=== PATIENT | male | born 1965 | race Caucasian/White ===

== ENCOUNTER → 2017-08-11 09:23 | Outpatient (CLI) | payer MEDICARE, SELFPAY | PROVIDERS: PCP Internal Medicine; Visit Provider Internal Medicine | DX: I87.2 Venous insufficiency (chronic) (peripheral) (principal); L97.822 Non-pressure chronic ulcer of other part of left lower leg with fat layer exposed; L97.812 Non-pressure chronic ulcer of other part of right lower leg with fat layer exposed; L03.115 Cellulitis of right lower limb; L03.116 Cellulitis of left lower limb; L95.0 Livedoid vasculitis | CPT/HCPCS: 29581; 87070; 87077; 87186; 87205 ==

== ENCOUNTER → 2017-08-11 14:16 | Outpatient (REF) | payer MEDICARE, SELFPAY | LOC: LAB 14:16 | PROVIDERS: PCP Internal Medicine; Visit Provider Internal Medicine | DX: L08.9 Local infection of the skin and subcutaneous tissue, unspecified (principal) | CPT/HCPCS: 87070; 87077; 87186; 87205 ==

== ENCOUNTER → 2017-08-16 16:05 | Outpatient (CLI) | payer MEDICARE, SELFPAY | PROVIDERS: PCP Internal Medicine; Visit Provider Internal Medicine | DX: L97.811 Non-pressure chronic ulcer of other part of right lower leg limited to breakdown of skin (principal); L97.821 Non-pressure chronic ulcer of other part of left lower leg limited to breakdown of skin; L03.115 Cellulitis of right lower limb; L03.116 Cellulitis of left lower limb; L95.0 Livedoid vasculitis | CPT/HCPCS: 99214 ==

== ENCOUNTER → 2017-08-22 14:45 | Outpatient (REF) | payer MEDICARE, SELFPAY | LOC: LAB 14:45 | PROVIDERS: PCP Internal Medicine; Visit Provider Internal Medicine | DX: L08.89 Other specified local infections of the skin and subcutaneous tissue (principal) | CPT/HCPCS: 87070; 87075; 87077; 87147; 87186; 87205 ==

== ENCOUNTER → 2017-08-22 15:45 | Outpatient (CLI) | payer MEDICARE, SELFPAY | PROVIDERS: PCP Internal Medicine; Visit Provider Internal Medicine | DX: I87.2 Venous insufficiency (chronic) (peripheral) (principal); L97.822 Non-pressure chronic ulcer of other part of left lower leg with fat layer exposed; L97.812 Non-pressure chronic ulcer of other part of right lower leg with fat layer exposed; L97.512 Non-pressure chronic ulcer of other part of right foot with fat layer exposed; L03.115 Cellulitis of right lower limb; L03.116 Cellulitis of left lower limb; L95.0 Livedoid vasculitis | CPT/HCPCS: 11042; 11045 ==

== ENCOUNTER → 2017-08-25 11:18 | Outpatient (CLI) | payer MEDICARE, SELFPAY ==
--- NOTE | 2017-08-25 11:21 | DI.RAD.S_ITS ---
PROCEDURE: XR FINGER LT MIN 2V INDICATIONS: 52 year-old male with left fifth finger pain after fall. TECHNIQUE: AP hand, 2 views of the left fifth finger(s) acquired. COMPARISON: None. FINDINGS: Bones: There is dorsal dislocation at the fifth proximal interphalangeal joint. Small fracture fragment lies volar to the proximal phalangeal head on the lateral projection. Other bones appear intact. No suspicious bony lesions. Soft tissues: No suspicious soft tissue calcifications. IMPRESSION: Dorsal dislocation of the fifth proximal interphalangeal joint, with small volar plate avulsion fracture fragment adjacent to the proximal phalangeal head. Dictated by: Lefty Shah M.D. on 08/25/2017 at 12:05 Approved by: Lefty Shah M.D. on 08/25/2017 at 12:07
== END ==
PROVIDERS: PCP Internal Medicine; Visit Provider Physician Assistant
DX: M79.645 Pain in left finger(s) (principal); S62.617A Displaced fracture of proximal phalanx of left little finger, initial encounter for closed fracture
CPT/HCPCS: 73140

== ENCOUNTER → 2017-08-29 13:08 | Outpatient (CLI) | payer MEDICARE, SELFPAY ==
--- NOTE | 2017-08-29 | OV.WND_ITS ---
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 Allergies adhesive tape (Reaction: blisters), Neosporin ([id number]) (Reaction: inflamed), neomycin (Reaction: inflammation), polymyxin B (Reaction: inflammation) HPI This information was obtained from the patient 08/29/17. Seen by Dr. Mora. The patient reports continued pain associated with the bilateral lower leg cellulitis and associated vasculitic nonpressure ulcers and continues on Bactrim without reporting adverse side effects. He's also tolerating negative pressure wound therapy which has been effective in reversing the acute flares associated with his livedoid vasculopathy over the past few years. 08/22/17. Seen by Dr. Mora. 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 He's tolerating the compression wraps however without difficulty. 08/16/17. Seen by Dr. Mora. The patient reports improvement in terms of pain associated with the bilateral lower leg cellulitis and associated vasculitic nonpressure ulcers that are caused by underlying severe livedoid vasculopathy. His wound culture from the last visit grew two MSSA resistant species. He also tolerated compression therapy with the Coban compression wraps without difficulty. 08/11/17. Seen by Dr. Mora. The patient reports increased pain and drainage associated with the chronic bilateral lower leg vasculitic ulcers over the past few days and he has a low grade fever of 99F today. He's been off of Bactrim for 10 days and has had compression wraps on the legs for about 9 days prior to cutting them off yesterday. 08/02/17. Seen by Dr. Mora. The patient continues on Bactrim for cellulitis associated with the bilateral lower leg vasculitic ulcers and feels the pain is improving. He's also tolerated compression therapy without difficulty. 07/28/17. Seen by Dr. Mora. The patient returns to our clinic with an acute flare of his bilateral lower leg livedoid vasculopathy that he's state is very painful and has been draining considerably. He was seen in the walk-in clinic last Tuesday and started on Bactrim. He feels the pain in improving however it's still quite severe. He does not report fevers or feeling unwell otherwise and has been applying an OTC compression wrap to the legs. He also states [facility] 02/16/17. Seen by Dr. Mora. The patient does not report significant pain or increased drainage associated with bilateral lower leg nonpressure ulcers and he has completing his course of Bactrim that was treating the recent Klebsiella positive wound culture. 02/08/17. Seen by Reginaldo Gallagher PA-C. The patient reports decreased pain and drainage from his lower leg ulcers after taking bactrim for several days. 02/03/17. Seen by Dr. Mora. The patient reports increased pain associated with bilateral lower leg nonpressure ulcers despite taking Augmentin for the past week which is treating the recent Klebsiella positive wound culture. He also feels the compression wraps are contributing to the discomfort. 01/27/17. Seen by Dr. Mora. The patient reports improvement in his pain associated with the bilateral lower leg nonpressure ulcers since starting on Augmentin after his visit last week. He is amenable to compression therapy today that has been effective at treating his severe livedoid vasculopathy which is the source of his ulcers. 01/21/17. Seen by Dr. Mora. The patient continues on Augmentin for the bilateral lower leg nonpressure ulcers infections. He feels that the pain has improved modestly and does not report adverse side effects from antibiotics. He also does not wish to have compression wraps placed today which have been very effective in the past at treating the ulcers associated with livedoid vasculopathy. 01/14/17. Seen by Reginaldo Gallagher PA-C. The patient reports decreased pain and drainage from his right lateral lower leg and foot ulcers since starting his cipro. He reports that he should have several more doses but has lost his bottle. 01/11/17. Seen by Reginaldo Gallagher PA-C. The patient reports increased pain and drainage from his right lateral ulcer. He denies fever, chills or malaise. 01/07/17. Seen by Dr. Mora. The patient returns to clinic with recurrence of his bilateral lower extremity vasculitic ulcers. He carries a diagnosis of livedoid vasculopathy and was seen by recently with no changes to his management plan. He reports moderate pain with minimal drainage associated with the ulcers and has been applying compression wraps at home which is been the standard treatment. He does not report fevers or feeling unwell in general. 12/22/16. Seen by Reginaldo Gallagher PA-C. The patient reports he has restarted his 3 drug regimen for his livedoid vasculopathy after seeing Dr. Carmichael 2 days ago. He also reports increased pain and drainage from his right lower leg ulcer. 12/01/16. Seen by Reginaldo Gallagher PA-C. The patient reports no increase in drainage or pain from his chronic lower extremity ulcers. He again does not want multi-layer compression applied today due to forecast high temperatures. 11/25/16. Seen by Reginaldo Gallagher PA-C. The patient reports improvement in his pain and drainage from his lower extremity ulcers. He does not want to be wrapped this week due to discomfort with the wraps. 11/17/16. Seen by Reginaldo Gallagher PA-C. The patient reports that he now is taking danazol and aspirin to treat his livedoid vasculopathy, but is currently unable to get his prescribed trental, which is the 3rd drug in his 3 drug regimen that has been effective so far in treating his condition. 11/10/16. Seen by Reginaldo Gallagher PA-C. The patient reports persistent erythema and drainage from his left lower extremity ulcers which are known to be infected at this time. He has been able to procure his Bactrim DS and began taking it yesterday. In addition he has decided to resume taking danazol to treat his livedoid vasculopathy. 11/03/16. Seen by Reginaldo Gallagher PA-C. The patient reports he has been unable to afford his Bactrim DS prescription and has not yet picked it up. He grew S. Maltophilia and an coagulase negative staph. 10/27/16. Seen by Reginaldo Gallagher PA-C. The patient reports decreased drainage from his lower extremity ulcers and general improvement in all of the ulcers with the exception of an odor from the left ankle ulcers. 10/20/16. Seen by Reginaldo Gallagher PA-C. The patient reports missing a day of oral antibiotics but intends to continue the course. He has not procured his danazol as he is concerned about androgen-related side effects. 10/13/16. Seen by Reginaldo Gallagher PA-C. The patient reports that he now has medicare insurance coverage, though he has not yet attempted to use it to fill his prescription for danazol which treats his livedoid vasculopathy. He reports continued pain and drainage from his left foot ulcer and has been applying topical gentamicin but only procured the augmentin to treat it 1 day ago stating that I wasn't really going to be all that effective right? 10/06/16. Seen by Reginaldo Gallagher PA-C. The patient's recent wound culture has resulted with ESBL + E. Coli which is resistant to most oral antibiotics. Notably it is intermediately sensitive to Augmentin and it is sensitive to gentamicin. He reports improvement in the right foot and leg ulcers and continued pain and drainage from the left leg ulcers. 09/29/16. Seen by Reginaldo Gallagher PA-C. The patient reports significantly increased pain and drainage from his left medial ankle ulcer and decreased pain and drainage from his other ulcers. 09/16/16. Seen by Reginaldo Gallagher PA-C. The patient reports continued pain from her lower leg ulcers but the pain and drainage has decreased in recent days. He tolerates compression therapy and believes it is working though complains it is difficult to put up with during the hot weather we've had recently. 09/09/16. Seen by Dr. Mora. The patient report persistent but improving pain associated with the bilateral lower leg vasculitic non-pressure ulcers since his last visit. He' s tolerating compression therapy and does not report fevers or feeling unwell. 09/02/16. Seen by Reginaldo Gallagher PA-C. The patient reports continued pain and some decrease in drainage from his bilateral ulcers of both lower legs and feet. He has not been able to secure medical insurance and remains unable to afford one ot the medications that threats his livedoid vasculopathy. 08/26/16. Seen by Dr. Mora. The patient continues to report pain associated with the bilateral lower leg non-pressure ulcers but feels its improving since starting antibiotics and compression therapy 2 weeks ago. He does not report fevers or feeling unwell and has tolerated the wraps without difficulty. 08/20/16. Seen by Dr. Mora. The patient reports a modest improvement in terms of pain since starting compression wrap therapy for his chronic bilateral lower leg vasculitic nonpressure ulcers. He has been on Bactrim for the past few days however his wound culture shows resistance to this and he does not report fevers, feeling unwell, or adverse side effects from the Bactrim. His ulcers result from his chronic llivedoid vasculopathy that he' s experienced for many years. 08/17/16. Seen by Dr. Mora. The patient continues to report persistent pain associated with the bilateral lower leg vasculitic nonpressure ulcers. He's tolerating his compression wraps without difficulty and staff feel that the drainage continues to be quite significant. 08/11/16. Seen by Dr. Mora. The patient reports modest improvement in terms of his bilateral lower leg pain since we started compression wraps at the last visit and he was started on Augmentin. He is being treated for recurrent and chronic vasculitic ulcers associated with his bilateral lower leg livedoid vasculopathy. 08/06/16. Seen by Dr. Mora. The patient reports a significant increase in pain and drainage associated with the chronic and recurrent bilateral lower leg nonpressure ulcers. He has been on Flagyl for a recent polymicrobial anaerobic positive culture of the wounds. 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 He does not report fevers or feeling unwell except for significant lower leg pain at this time. 07/26/16. Seen by Reginaldo Gallagher PA-C. The patient reports he remains without insurance and consequently unable to afford his Danazol. 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 Ulcer drainage has been stable. 07/20/16. Seen by Reginaldo Gallagher PA-C. The patient reports that he has still not enrolled in Medicare and can not afford his Danazol for treatment of his livedoid vasculopathy. He was able to afford his levaquin and flagyl, which he has been taking for his polymicrobial ulcer infection. 07/12/16. Seen by Reginaldo Gallagher PA-C. The patient reports an increase in pain from his right and left foot livedoid vasculopathy ulcers. The pain is described as searing and burning and is constant but worsened by standing or anything touching the ulcers with his highest pain level reported at 10/10. He continues not to be enrolled in Medicare and still can not afford his Danazol which is used to treat his chronic condition. In addition he reports a fishy odor from the ulcers. 07/05/16. Seen by Reginaldo Gallagher PA-C. The patient reports that despite being eligible for Medicare due to disability, he has not filled out the appropriate paperwork and thus in uninsured at this time. Consequently he has been unable to afford his prescription for Danazol, which treats his livedoid vasculopathy. He reports continued pain and drainage from his right and left lower extremity ulcers. 06/23/16. Seen by Dr. Mora. The patient reports some increased swelling in both lower legs as well as significant pain associated with the right foot vasculitic ulcer. He does not report significant pain nor drainage associated with the other bilateral lower leg ulcers. 06/16/16. Seen by Dr. Mora. The patient reports modest improvement in terms of pain associated with bilateral lower leg non-pressure ulcers since his last visit and he continues on Augmentin and to apply topical gentamicin to the ulcers to treat the recent coag negative Staph cultures. He's also wearing compression stockings as recommended which are effective at minimizing the effect of his livedoid vasculopathy on ulcer formation and healing. 06/09/16. Seen by Dr. Mora. The patient reports persistent pain associated with the left medial lower leg non-pressure ulcers since last week and his recent wound culture grew two coag negative Staph species. He does not report significant pain or increased drainage associated with the other bilateral lower leg ulcers. Of note, he was without compression wraps for the past week which are treating chronic bilateral lower leg edema associated with his diagnosis of livedoid vasculopathy. He feels his legs may be more swollen than at his last visit. 06/02/16. Seen by Dr. Mora. The patient reports significant improvement in terms of pain associated with bilateral lower leg non-pressure ulcers since his last visit. We have been treating with compression wraps and he is now off of antibiotics. The culture taken last week from the left lower leg ulce grew 2 Staph species. 05/26/16. Seen by Dr. Mora. The patient continues to report improvements in terms of pain and drainage associated with bilateral lower leg nonpressure ulcers except for an ulcer over the left medial malleolus which he states is quite painful. He is now off of antibiotics and he feels that the compression wraps continue to be beneficial in terms of treating the chronic livedoid vasculopathy that is the source of his recurrent and very painful ulcers. 05/19/16. Seen by Dr. Mora. The patient continues to report improvements in terms of pain and drainage associated with bilateral lower leg nonpressure ulcers. He is now off of antibiotics and he feels that the compression wraps continue to be beneficial in terms of treating the chronic livedoid vasculopathy that is the source of his recurrent and very painful ulcers. 05/12/16. Seen by Dr. Mora. The patient continues to report improving pain and drainage associated with bilateral lower leg nonpressure ulcers. He continues on Augmentin without reported adverse side effects for chronic wound infection and has tolerated his compression wraps which are treating his chronic livedoid vasculopathy without reporting any problems. 05/06/16. Seen by Dr. Mora. The patient reports decreased pain and drainage associated with bilateral lower leg nonpressure ulcers. He continues on Augmentin without reporting adverse side effects for the chronic wound infections. He's also tolerated his compression wraps and feels that they are beneficial in terms of treating his chronic livedoid vasculopathy. 04/22/16. Seen by Dr. Mora. The patient feels there's been some modest improvement over the past week in the bilateral leg pain associated with the chronic bilateral non- pressure ulcers. He's on Augmentin without reporting adverse side effects for a wound infection and feels the compression wraps have been beneficial in treating the acute flare of livedoid vasculopathy which is the underlying pathology of his recurrent ulcers. 04/15/16. Seen by Dr. Mora. The patient reports significant pain and drainage associated with the bilateral lower leg non-pressure ulcers since his last visit and he's now on Augmentin for a polymicrobial wound infection. Of note, he suffers from livedoid vasculopathy with very painful flares resulting in severe, hypoxic ulceration that's responded well in the past to compression therapy and targeted antibiotics plus hyperbaric oxygen therapy which as been approved and provided off label. 01/01/16. Seen by Dr. Mora. The patient does not report pain or significant drainage associated with the left lower leg non-pressure ulcers since he started taking moxifloxacin 3 days ago. Of note, this was not prescribed recently and he states it was left over from a previous prescription written a few months ago. He has a long history of bilateral lower leg ulcers associated with livedoid vasculopathy and he feels compression therapy and targeted antibiotic therapy, along with HBOT, have been quite effective at managing acute flares. 10/31/15 Seen by Reginaldo Gallagher PA-C. The patient states that he has completed his course of moxifloxacin and his ulcers have improved remarkably with decreased pain and drainage. 10/13/15 Seen by Reginaldo Gallagher PA-C. The patient reports fevers and chills in the past few days. He also reports that he has not obtained, or started taking the bactrim that was prescribed due to some confusion with his prescription and the pharmacy. His ulcer culture has returned with strep spp. He reports continued pain and drainage form his ulcers. 09/30/15 Seen by Reginaldo Gallagher PA-C. The patient returns to our clinic with a recurrence and worsening of his livedoid vasculopathy ulcers of the right and left lower legs. He reports that they have been extremely painful in the past week which has prompted him to come to this appointment. The pain is described as searing and burning, non-radiating and up to 10/10 exacerbated by the ulcers being touched. 03/06/[address] Mora. The patient reports only moderate discomfort associated with the right medial lower leg ulcer but otherwise no pain with the other lower leg ulcers. He also reports only minimal drainage from the ulcers and feels the daily compression wraps continue to be effective. 02/24/15 Seen by Reginaldo Gallagher PA-C. The patient notes improvement in pain and drainage from his ulcers. With this recent episode of lividoid vasculopathy it appears that there were no identifiable triggering events. The ulcers appeared to respond to culture- directed antibiotic therapy, debridement when tolerated, hyperbaric oxygen treatments and compression. It is unclear if nifedipine helped. His pain is now 1-2/10. 02/17/15 Seen by Reginaldo Gallagher PA-C. The patient continues to report more pain and drainage from his right lower leg ulcers than his left. He is concerned about new areas of ecchymosis that look like they're going to blow up again. He is not on nifedipine at this point as an adjunct treatment for his livedoid vasculopathy though he recalls that my feet and toes felt warmer when I was taking it. 02/06/[address] Mora. The patient does not report drainage from his chronic bilateral lower leg non-pressure ulcers and reports only minimal pain associated with the right lower leg medial ulcer. 01/30/[address] Mora. The patient reports less pain associated with the bilateral lower leg ulcers and feels the drainage continues to decrease since starting HBOT and compression wrap therapy. He continues on Bactrim for the MSSA positive wound culture and does not report adverse side effects. 01/16/[address] Mora. The patient states the pain associated with his right lower leg ulcers is still present but much improved since starting HBOT and utilizing compression wraps. He feels the drainage from all bilateral lower leg ulcers continues to decrease also an he continues on Bactrim for an MSSA positive wound culture from 01/04/15 and he does not report adverse side effects. 01/02/[address] Mora. The patient reports increasing pain and drainage associated with the left lower leg ulcers but he does not report fever. His left compression wrap has soaked through and he's not currently on antibiotics. 12/20/[address] Mora. The patient feels the bilateral lower leg pain associated with the chronic livedoid vasculopathy ulcers improved somewhat with compression therapy and he's also started taking low dose nifedipine for the condition but reports a headached since starting to take this. His wound culture of the right medial ulcer grew resistant coag negative Staph and he's currently not on antibiotics. The staff report minimal drainage on the left left and moderate from the right lower leg medial ulcer. Of note, he was also approved by his insurer for hyperbaric oxygen therapy as off label treatment for the recent severe flare of lower leg ulcerations as described in my previous note. 12/12/[address] Mora. The patient complains of increasing bilateral lower leg pain and feels there are new ulcers, particularly on the right medial lower leg, forming and draining. He's been applying Comprilan compression wraps at home which offer symptomatic relief and he's reported fevers over the weekend but also states he has some ear pain. He' s not currently on antibiotics and his wound culture from 11/27/14 showed no organisms. 11/27/14 Seen by Reginaldo Gallagher PA-C. The patient continues to have persistent and severe pain in his leg wounds with the left leg worse than the right. He has noted multiple new areas of purpuric rash and new small ulcers forming on both lower legs. These symptoms are consistent with previous flares of his lividoid vasculopathy. His most recent flare of this condition, one year ago, his ulcers progressed to the point of exposed tendon and muscle and required hyperbaric oxygen treatment to reverse the progression of disease. He has been taking levaquin for Enterobacter Cloacae which was cultured from his wound and has noted no improvement since starting the levaquin. 11/20/[address] Mora. The patient reports persistent pain in both the left and right lower legs and feels the ulcers over both legs are deteriorating a bit despite being on doxycycline. The ulcers continue to drain and he's been gently wrapping the legs with an ALEJANDRO bandage as he feels this has relieved the discomfort in the past. He does not report fever or chills. 11/11/[address] Mora. The patient feels his left leg pain and swelling have improved since starting doxycycyline at the last visit for a Klebsiella, Enterococcus, coag neg Staph wound culture from 11/01/14. 11/04/[address] Mora. The patient reports increased pain and swelling in the left lower leg with subjective fevers over the past few days. He does not report increased drainage from his ulcers however. His left lower leg ulcer wound culture returned Klebsiella, Enterobacter, and coag negative Staph on 11/03/14. He also feels that the previously described lesions over the anterior left lower leg have now deteriorated into new ulcers. 10/18/[address] Mora. The patient continues to complains of moderate to severe intermittent pain at the site of the left lower leg proximal ulcer however he reports only minimal drainage from his ulcers and is changing dressings about every 3 days. He's been off of antibiotics for the past week. 10/10/[address] Mora. The patient continues to report pain associated with the left lower leg ulcer that's especially noticeable when the leg swells. He reports continued drainage from both this site and the left medial malleolar ulcer and he's completed his course of clindamycin. 09/30/14 Seen by Reginaldo Gallagher PA-C. The patient reports that his wounds are less painful today and are draining a little less as well. 09/17/14 Seen by Reginaldo Gallagher PA-C. The patient reports increased pain in his wounds without increased drainage. Pain is increased when the wounds are touched and is severe 8-9/10 and non-radiation. Described as a burning/stabbing pain. He is currently on Bactrim DS. 09/05/14 Seen by Reginaldo Gallagher PA-C. The patient reports he has not purchased Hibiclens soap yet but has been trying to keep the wounds clean. 08/29/14 Seen by Reginaldo Gallagher PA-C. The patient complains of increased pain from his wounds. Drainage is stable. He notes that he scrubs his wounds with soap and tap water on a frequent basis. He is not currently on antibiotics. 08/13/[address] Mora. The patient is now off Bactrim that was given for an ESBL E. coli positive wound culture of the left lower leg ulcer. He feels the pain, swelling , and drainage associated with the ulcers is now minimal but the lesion on the dorsum of the foot is now open. 08/01/[address] Mora. The patient feels the pain and drainage associated with the left lower leg ulcers as well as the swelling in the lower leg has improved since changing to Bactrim from clindamycin. 07/26/[address] Mora. The patient complains of increased pain over the anterior left lower leg and is concerned about possible new ulcers that may be developing in the area. He continues on clindamycin and does not report increased drainage from either of the two existing left lower leg ulcers. 07/18/14 The patient reports minimal drainage and pain associated with his two remaining left lower leg ulcers. He's been taking clindamycin however only twice daily instead of three times daily as prescribed. 07/11/14 The patient feels the pain and drainage from the remaining left lower leg ulcers has improved considerably over the past week however the anterior proximal ulcer is still quite tender. 07/03/14 The patient reports no fever or chills and no complications from his antibiotics or HBOT. 07/01/14 The patient's wound culture grew resistant coag negative Staph and he reports little improvement in the left lower leg ulcer pain and drainage over the past week. He also feels the swelling in the leg has not improved. He does not report fever, chills, or sweats. 06/26/14 The patient feels his left lower leg ulcers are draining less as the alginate he's been using seems to be dry. He continues on Bactrim and although the ulcers continue to be painful they're subjectively improving in terms of pain, leg swelling, and erythema. He' s also continued with HBOT and states he noticed his left leg was quite uncomfortable during the ascent yesterday. He complains of a headache today but no fever, chills, or other constitutional symptoms. 06/17/14 The patient reported a red rash of unknown significance, located on his back yesterday to the home infusion nurse. This rash appeared after his second infusion of ertapenem and the patient reports it was short lived, resolved spontaneously and was somewhat itchy. Yesterday the patient initially agreed to a TID regimen of a cephamycin antibiotic that his ESBL ecoli bacteria was sensitive to. He then became angry and agitated at the infusion center when he presented for his test dose. He left without receiving his infusion. Furthermore, today he reports blisters at the site of his PICC dressing and there is dried blood under the dressing. We discussed his chart-reported sulfa allergy, as his organism is sensitive to Bactrim. He reports this allergy was recorded on his chart after he had a red, linear, non- puritic rash on his abdomen while taking a sulfa antibiotic. He reports he finished several more days of the antibiotic and the rash resolved. He does not believe he has ever had an anaphylactic reaction once it's signs and symptoms were described. 06/10/14 The patient reports a significant increase in pain and drainage at the site of the left lower leg ulcers over the past week. He also reports swelling in the leg. 06/03/14 The patient reports that he hated the SNAP dressing and does not want it reapplied. He reports that the canister bothered him to the point of not being able to sleep, and the drainage from the non-included area of the SNAP caused maceration. 05/16/14 The patient feels the drainage from his left lower leg ulcer has decreased since treating his pansensitive coag negative Staph culture from the site with doxycycline after the last visit. This pain has also improved. He states he still required daily dressing changes however. 05/09/14 The patient still complains of pain at the left lower leg medial ulcer and states he needs to change the dressing daily. Otherwise he feels the lateral ulcer is nearly healed. 04/17/14 The patient reports increased inflammation, pain, and itching at the left medial ulcer site. He continues to have moderate drainage there requiring daily dressing changes. His wound culture from the lateral left foot ulcer on 04/02/14 grew coag negative Staph without sensitivities reported. He does not report fever or chills. 04/11/14 The patient reports decreased pain from his wounds and no drainage from his right lateral lower leg wound. He does not report fever or chills. 04/02/14 The patient reports increased pain in the left lower leg ulcers and has been of doxycycline for the past week. This was started based on his coag neg Staph wound culture from [facility]. He also reports subjective fevers and feeling generally unwell for the past few days. 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; complication of HBOT; s/p bilateral tympanoplasty) Complaints and Symptoms This information was obtained from the patient Patient complains of: General Notes: I have reviewed and concur with the Review of Systems and Past Family Social History documents completed by the clinician, I have reviewed and concur with the Wound Assessment document completed by the clinician Cardiovascular (Central/Peripheral): Lower extremity (leg) swelling Hematologic/Lymphatic: Bleeding / Clotting Disorders Integumentary (Hair/Skin/Nails): Lesions, Open Sore Prior Wound History: Bleeding, Drainage, Erythema, Malodor, Pain Patient denies complaints or symptoms related to: Cardiovascular (Central/Peripheral): Lower extremity (leg) resting pain Constitutional Symptoms (General Health): Chills, Fever, Marked Weight Change Ear/Nose/Mouth/Throat: Hearing Loss / Aid Eyes: Partial/Complete Blindness Gastrointestinal (GI): Nausea / Vomiting Hematologic/Lymphatic: Bleeding Tendency Musculoskeletal: Assistive Devices, Muscle Weakness Neurological: Loss of Protective Sensation Psychiatric: Memory Loss Respiratory: Oxygen Use, Shortness of Breath OBJECTIVE Constitutional Vital signs reviewed and noted. Well developed. Alert. Clean appearing.. Height/ Length: 73 in (185.42 cm), Weight: 192.4 lbs (87.45 kgs), BMI: 25.4, Temperature: 96.9 ?F ( 36.06 ?C), Pulse: 79 bpm, Respiratory Rate: 18 breaths/min, Blood Pressure: 108/72 mmHg, Pulse Oximetry: 99 %. Ears, Nose, Mouth, and Throat: No clinically significant hearing loss on informal examination. Cardiovascular: 1+ bilateral lower leg edema. Gastrointestinal (GI): Non-obese. Nondistended.. Integumentary (Hair, Skin) Mild periwound erythema without warmth; improved from previous review. Refer to appropriate clinician wound documentation for this visit; right and left lower leg ulcers extend to subcut with bases partially covered with pink granulation, remainder fibrin and slough. Mild confluent, erythematous rash in the affected area of what appears to be the Xeroform dressings without appreciable drainage. Wound #31 Left, Lateral Leg and Foot is a chronic Full Thickness Vasculitic Ulcer and has received a status of Not Healed. Subsequent wound encounter measurements are 8cm length x 5cm width x 0.1cm depth, with an area of 40 sq cm and a volume of 4 cubic cm. No tunneling has been noted. No sinus tract has been noted. No undermining has been noted. There is a moderate amount of sero-sanguineous drainage noted which has no odor. The patient reports a wound pain of level 5/10. The wound margin is irregular. Wound bed has No epithelialization, No eschar, Yes slough, Yes bright red, firm granulation. The periwound skin texture is normal. The periwound skin moisture is normal. The periwound skin exhibited: Erythema, Hemosiderosis. The periwound skin did not exhibit: Atrophie Sarah, Cyanosis, Ecchymosis, Pallor, Rubor. The temperature of the periwound skin is Warm. Periwound skin presents with s/s of infection. Confirmation Description and Treatment Plan is: Signs and Symptoms Present. Local Pulse is Palpable. Wound #32 Left, Medial Leg is a chronic Full Thickness Vasculitic Ulcer and has received a status of Not Healed. Subsequent wound encounter measurements are 14.5cm length x 5cm width x 0.1cm depth, with an area of 72.5 sq cm and a volume of 7.25 cubic cm. No tunneling has been noted. No sinus tract has been noted. No undermining has been noted. There is a moderate amount of sero-sanguineous drainage noted which has no odor. The patient reports a wound pain of level 5/10. The wound margin is irregular. Wound bed has Yes epithelialization, No eschar, Yes slough, Yes bright red, pink, firm granulation. The periwound skin texture is normal. The periwound skin exhibited: Atrophie Sarah, Hemosiderosis. The periwound skin did not exhibit: Dry/Scaly, Moist, Maceration , Cyanosis, Ecchymosis, Erythema, Pallor, Rubor. The temperature of the periwound skin is Warm. Periwound skin does not exhibit signs or symptoms of infection. Local Pulse is Palpable. Wound #34 Right, Medial Leg is a chronic Full Thickness Vasculitic Ulcer and has received a status of Not Healed. Subsequent wound encounter measurements are 7cm length x 5cm width x 0.1cm depth, with an area of 35 sq cm and a volume of 3.5 cubic cm. No tunneling has been noted. No sinus tract has been noted. No undermining has been noted. There is a moderate amount of sero-sanguineous drainage noted which has no odor. The patient reports a wound pain of level 5/10. The wound margin is unable to assess. Wound bed has No epithelialization, No eschar, Yes slough, Yes bright red, pink, firm granulation. The periwound skin texture is normal. The periwound skin exhibited: Moist, Hemosiderosis. The periwound skin did not exhibit: Dry/Scaly, Maceration, Atrophie [place], Cyanosis, Ecchymosis, Erythema, Pallor, Rubor. The temperature of the periwound skin is Warm. Periwound skin does not exhibit signs or symptoms of infection. Local Pulse is Palpable. Wound #35 Right, Lateral Leg is a chronic Full Thickness Vasculitic Ulcer and has received a status of Not Healed. Subsequent wound encounter measurements are 7cm length x 6cm width x 0.1cm depth, with an area of 42 sq cm and a volume of 4.2 cubic cm. No tunneling has been noted. No sinus tract has been noted. No undermining has been noted. There is a moderate amount of sero-sanguineous drainage noted which has no odor. The patient reports a wound pain of level 5/10. The wound margin is irregular. Wound bed has No epithelialization, No eschar, Yes slough, No granulation. The periwound skin texture is normal. The periwound skin moisture is normal. The periwound skin exhibited: Hemosiderosis. The periwound skin did not exhibit: Atrophie Sarah, Cyanosis, Ecchymosis, Erythema, Pallor, Rubor. The temperature of the periwound skin is Warm. Periwound skin does not exhibit signs or symptoms of infection. Local Pulse is Palpable. Wound #36 Right Foot is a chronic Full Thickness Vasculitic Ulcer and has received a status of Not Healed. Subsequent wound encounter measurements are 2cm length x 0.4cm width x 0.1cm depth, with an area of 0.8 sq cm and a volume of 0.08 cubic cm. No tunneling has been noted. No sinus tract has been noted. No undermining has been noted. There was no drainage noted. The patient reports a wound pain of level 5/10. The wound margin is unable to assess. Wound bed has No epithelialization, No eschar, Yes slough, No granulation. The periwound skin texture is normal. The periwound skin moisture is normal. The periwound skin color is normal. The temperature of the periwound skin is WNL. Periwound skin does not exhibit signs or symptoms of infection. Local Pulse is Palpable. Neurological: Cranial nerves grossly intact with symmetric function normal by informal observation.. ASSESSMENT Active Problems ICD-10 (Encounter Diagnosis) L97.822 - Non-pressure chronic ulcer of other part of left lower leg with fat layer exposed (Encounter Diagnosis) L97.812 - Non-pressure chronic ulcer of other part of right lower leg with fat layer exposed (Encounter Diagnosis) L03.115 - Cellulitis of right lower limb (Encounter Diagnosis) L03.116 - Cellulitis of left lower limb (Encounter Diagnosis) L95.0 - Livedoid vasculitis PLAN Wound Orders: Wound #31 Left, Lateral Leg and Foot Dressings Primary dressing: - Triamcinolone to all wound beds. Cover and secure with: - Adaptic Change Dressing: - Leave dressing in place until . Compression/Edema Control Avoid prolonged standing in one place. Multi Layer Wrap: - COban2 Lite Scribing Attestation I attest, as the nurse, that I scribed these orders for the physician. Wound #32 Left, Medial Leg Dressings Primary dressing: - Triamcinolone to all wound beds. Cover and secure with: - Adaptic Change Dressing: - Leave dressing in place until . Compression/Edema Control Avoid prolonged standing in one place. Multi Layer Wrap: - COban2 Lite Scribing Attestation I attest, as the nurse, that I scribed these orders for the physician. Wound #34 Right, Medial Leg Dressings Primary dressing: - Triamcinolone to all wound beds. Cover and secure with: - Adaptic Change Dressing: - Leave dressing in place until . Compression/Edema Control Avoid prolonged standing in one place. Multi Layer Wrap: - COban2 Lite Scribing Attestation I attest, as the nurse, that I scribed these orders for the physician. Wound #35 Right, Lateral Leg Dressings Primary dressing: - Triamcinolone to all wound beds. Cover and secure with: - Adaptic Change Dressing: - Leave dressing in place until . Compression/Edema Control Avoid prolonged standing in one place. Multi Layer Wrap: - COban2 Lite Scribing Attestation I attest, as the nurse, that I scribed these orders for the physician. Wound #36 Right Foot Dressings Primary dressing: - Triamcinolone to all wound beds. Cover and secure with: - Adaptic Change Dressing: - Leave dressing in place until . Compression/Edema Control Avoid prolonged standing in one place. Multi Layer Wrap: - COban2 Lite Scribing Attestation I attest, as the nurse, that I scribed these orders for the physician. General Notes: Finish antibiotics. I've reviewed the clinician's documentation and agree with the evaluation and plan as written. Also, the patient's lower legs appear to be slowly improving and I've added triamcinolone cream today to address the rash which appears to be related to the Xeroform dressings. Electronic Signature(s) Signed By: Date: Noah Mora MD 08/30/2017 10:10:58 Noah Mora MD 08/30/2017 10:10:58 Entered By: Noah Mora on 08/29/2017 13:32:29
== END ==
PROVIDERS: PCP Internal Medicine; Visit Provider Internal Medicine
DX: I87.2 Venous insufficiency (chronic) (peripheral) (principal); L97.822 Non-pressure chronic ulcer of other part of left lower leg with fat layer exposed; L97.812 Non-pressure chronic ulcer of other part of right lower leg with fat layer exposed; L95.0 Livedoid vasculitis; L03.115 Cellulitis of right lower limb; L03.116 Cellulitis of left lower limb; R21 Rash and other nonspecific skin eruption
CPT/HCPCS: 99214

== ENCOUNTER → 2017-09-01 13:23 | Outpatient (CLI) | payer MEDICARE, SELFPAY ==
--- NOTE | 2017-09-01 | OV.WND_ITS ---
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 Allergies adhesive tape (Reaction: blisters), Neosporin ([id number]) (Reaction: inflamed), neomycin (Reaction: inflammation), polymyxin B (Reaction: inflammation) HPI This information was obtained from the patient 09/01/17. Seen by Dr. Mora. The patient reports continued pain associated with the bilateral lower leg vasculitic nonpressure ulcers and he completed his course of Bactrim 2 days ago. 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 He's tolerated compression wraps which have been effective at treating acute flares and we used [employer] to cover the ulcers at the last visit presuming Xeroform was causing a contact dermatitis and considerable inflammation of the lower legs. 08/29/17. Seen by Dr. Mora. The patient reports continued pain associated with the bilateral lower leg cellulitis and associated vasculitic nonpressure ulcers and continues on Bactrim without reporting adverse side effects. He's also tolerating negative pressure wound therapy which has been effective in reversing the acute flares associated with his livedoid vasculopathy over the past few years. 08/22/17. Seen by Dr. Mora. 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 He's tolerating the compression wraps however without difficulty. 08/16/17. Seen by Dr. Mora. The patient reports improvement in terms of pain associated with the bilateral lower leg cellulitis and associated vasculitic nonpressure ulcers that are caused by underlying severe livedoid vasculopathy. His wound culture from the last visit grew two MSSA resistant species. He also tolerated compression therapy with the Coban compression wraps without difficulty. 08/11/17. Seen by Dr. Mora. The patient reports increased pain and drainage associated with the chronic bilateral lower leg vasculitic ulcers over the past few days and he has a low grade fever of 99F today. He's been off of Bactrim for 10 days and has had compression wraps on the legs for about 9 days prior to cutting them off yesterday. 08/02/17. Seen by Dr. Mora. The patient continues on Bactrim for cellulitis associated with the bilateral lower leg vasculitic ulcers and feels the pain is improving. He's also tolerated compression therapy without difficulty. 07/28/17. Seen by Dr. Mora. The patient returns to our clinic with an acute flare of his bilateral lower leg livedoid vasculopathy that he's state is very painful and has been draining considerably. He was seen in the walk-in clinic last Tuesday and started on Bactrim. He feels the pain in improving however it's still quite severe. He does not report fevers or feeling unwell otherwise and has been applying an OTC compression wrap to the legs. He also states [facility] 02/16/17. Seen by Dr. Mora. The patient does not report significant pain or increased drainage associated with bilateral lower leg nonpressure ulcers and he has completing his course of Bactrim that was treating the recent Klebsiella positive wound culture. 02/08/17. Seen by Reginaldo Gallagher PA-C. The patient reports decreased pain and drainage from his lower leg ulcers after taking bactrim for several days. 02/03/17. Seen by Dr. Mora. The patient reports increased pain associated with bilateral lower leg nonpressure ulcers despite taking Augmentin for the past week which is treating the recent Klebsiella positive wound culture. He also feels the compression wraps are contributing to the discomfort. 01/27/17. Seen by Dr. Mora. The patient reports improvement in his pain associated with the bilateral lower leg nonpressure ulcers since starting on Augmentin after his visit last week. He is amenable to compression therapy today that has been effective at treating his severe livedoid vasculopathy which is the source of his ulcers. 01/21/17. Seen by Dr. Mora. The patient continues on Augmentin for the bilateral lower leg nonpressure ulcers infections. He feels that the pain has improved modestly and does not report adverse side effects from antibiotics. He also does not wish to have compression wraps placed today which have been very effective in the past at treating the ulcers associated with livedoid vasculopathy. 01/14/17. Seen by Reginaldo Gallagher PA-C. The patient reports decreased pain and drainage from his right lateral lower leg and foot ulcers since starting his cipro. He reports that he should have several more doses but has lost his bottle. 01/11/17. Seen by Reginaldo Gallagher PA-C. The patient reports increased pain and drainage from his right lateral ulcer. He denies fever, chills or malaise. 01/07/17. Seen by Dr. Mora. The patient returns to clinic with recurrence of his bilateral lower extremity vasculitic ulcers. He carries a diagnosis of livedoid vasculopathy and was seen by recently with no changes to his management plan. He reports moderate pain with minimal drainage associated with the ulcers and has been applying compression wraps at home which is been the standard treatment. He does not report fevers or feeling unwell in general. 12/22/16. Seen by Reginaldo Gallagher PA-C. The patient reports he has restarted his 3 drug regimen for his livedoid vasculopathy after seeing Dr. Carmichael 2 days ago. He also reports increased pain and drainage from his right lower leg ulcer. 12/01/16. Seen by Reginaldo Gallagher PA-C. The patient reports no increase in drainage or pain from his chronic lower extremity ulcers. He again does not want multi-layer compression applied today due to forecast high temperatures. 11/25/16. Seen by Reginaldo Gallagher PA-C. The patient reports improvement in his pain and drainage from his lower extremity ulcers. He does not want to be wrapped this week due to discomfort with the wraps. 11/17/16. Seen by Reginaldo Gallagher PA-C. The patient reports that he now is taking danazol and aspirin to treat his livedoid vasculopathy, but is currently unable to get his prescribed trental, which is the 3rd drug in his 3 drug regimen that has been effective so far in treating his condition. 11/10/16. Seen by Reginaldo Gallagher PA-C. The patient reports persistent erythema and drainage from his left lower extremity ulcers which are known to be infected at this time. He has been able to procure his Bactrim DS and began taking it yesterday. In addition he has decided to resume taking danazol to treat his livedoid vasculopathy. 11/03/16. Seen by Reginaldo Gallagher PA-C. The patient reports he has been unable to afford his Bactrim DS prescription and has not yet picked it up. He grew S. Maltophilia and an coagulase negative staph. 10/27/16. Seen by Reginaldo Gallagher PA-C. The patient reports decreased drainage from his lower extremity ulcers and general improvement in all of the ulcers with the exception of an odor from the left ankle ulcers. 10/20/16. Seen by Reginaldo Gallagher PA-C. The patient reports missing a day of oral antibiotics but intends to continue the course. He has not procured his danazol as he is concerned about androgen-related side effects. 10/13/16. Seen by Reginaldo Gallagher PA-C. The patient reports that he now has medicare insurance coverage, though he has not yet attempted to use it to fill his prescription for danazol which treats his livedoid vasculopathy. He reports continued pain and drainage from his left foot ulcer and has been applying topical gentamicin but only procured the augmentin to treat it 1 day ago stating that I wasn't really going to be all that effective right? 10/06/16. Seen by Reginaldo Gallagher PA-C. The patient's recent wound culture has resulted with ESBL + E. Coli which is resistant to most oral antibiotics. Notably it is intermediately sensitive to Augmentin and it is sensitive to gentamicin. He reports improvement in the right foot and leg ulcers and continued pain and drainage from the left leg ulcers. 09/29/16. Seen by Reginaldo Gallagher PA-C. The patient reports significantly increased pain and drainage from his left medial ankle ulcer and decreased pain and drainage from his other ulcers. 09/16/16. Seen by Reginaldo Gallagher PA-C. The patient reports continued pain from her lower leg ulcers but the pain and drainage has decreased in recent days. He tolerates compression therapy and believes it is working though complains it is difficult to put up with during the hot weather we've had recently. 09/09/16. Seen by Dr. Mora. The patient report persistent but improving pain associated with the bilateral lower leg vasculitic non-pressure ulcers since his last visit. He' s tolerating compression therapy and does not report fevers or feeling unwell. 09/02/16. Seen by Reginaldo Gallagher PA-C. The patient reports continued pain and some decrease in drainage from his bilateral ulcers of both lower legs and feet. He has not been able to secure medical insurance and remains unable to afford one ot the medications that threats his livedoid vasculopathy. 08/26/16. Seen by Dr. Mora. The patient continues to report pain associated with the bilateral lower leg non-pressure ulcers but feels its improving since starting antibiotics and compression therapy 2 weeks ago. He does not report fevers or feeling unwell and has tolerated the wraps without difficulty. 08/20/16. Seen by Dr. Mora. The patient reports a modest improvement in terms of pain since starting compression wrap therapy for his chronic bilateral lower leg vasculitic nonpressure ulcers. He has been on Bactrim for the past few days however his wound culture shows resistance to this and he does not report fevers, feeling unwell, or adverse side effects from the Bactrim. His ulcers result from his chronic llivedoid vasculopathy that he' s experienced for many years. 08/17/16. Seen by Dr. Mora. The patient continues to report persistent pain associated with the bilateral lower leg vasculitic nonpressure ulcers. He's tolerating his compression wraps without difficulty and staff feel that the drainage continues to be quite significant. 08/11/16. Seen by Dr. Mora. The patient reports modest improvement in terms of his bilateral lower leg pain since we started compression wraps at the last visit and he was started on Augmentin. He is being treated for recurrent and chronic vasculitic ulcers associated with his bilateral lower leg livedoid vasculopathy. 08/06/16. Seen by Dr. Mora. The patient reports a significant increase in pain and drainage associated with the chronic and recurrent bilateral lower leg nonpressure ulcers. He has been on Flagyl for a recent polymicrobial anaerobic positive culture of the wounds. 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 He does not report fevers or feeling unwell except for significant lower leg pain at this time. 07/26/16. Seen by Reginaldo Gallagher PA-C. The patient reports he remains without insurance and consequently unable to afford his Danazol. 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 Ulcer drainage has been stable. 07/20/16. Seen by Reginaldo Gallagher PA-C. The patient reports that he has still not enrolled in Medicare and can not afford his Danazol for treatment of his livedoid vasculopathy. He was able to afford his levaquin and flagyl, which he has been taking for his polymicrobial ulcer infection. 07/12/16. Seen by Reginaldo Gallagher PA-C. The patient reports an increase in pain from his right and left foot livedoid vasculopathy ulcers. The pain is described as searing and burning and is constant but worsened by standing or anything touching the ulcers with his highest pain level reported at 10/10. He continues not to be enrolled in Medicare and still can not afford his Danazol which is used to treat his chronic condition. In addition he reports a fishy odor from the ulcers. 07/05/16. Seen by Reginaldo Gallagher PA-C. The patient reports that despite being eligible for Medicare due to disability, he has not filled out the appropriate paperwork and thus in uninsured at this time. Consequently he has been unable to afford his prescription for Danazol, which treats his livedoid vasculopathy. He reports continued pain and drainage from his right and left lower extremity ulcers. 06/23/16. Seen by Dr. Mora. The patient reports some increased swelling in both lower legs as well as significant pain associated with the right foot vasculitic ulcer. He does not report significant pain nor drainage associated with the other bilateral lower leg ulcers. 06/16/16. Seen by Dr. Mora. The patient reports modest improvement in terms of pain associated with bilateral lower leg non-pressure ulcers since his last visit and he continues on Augmentin and to apply topical gentamicin to the ulcers to treat the recent coag negative Staph cultures. He's also wearing compression stockings as recommended which are effective at minimizing the effect of his livedoid vasculopathy on ulcer formation and healing. 06/09/16. Seen by Dr. Mora. The patient reports persistent pain associated with the left medial lower leg non-pressure ulcers since last week and his recent wound culture grew two coag negative Staph species. He does not report significant pain or increased drainage associated with the other bilateral lower leg ulcers. Of note, he was without compression wraps for the past week which are treating chronic bilateral lower leg edema associated with his diagnosis of livedoid vasculopathy. He feels his legs may be more swollen than at his last visit. 06/02/16. Seen by Dr. Mora. The patient reports significant improvement in terms of pain associated with bilateral lower leg non-pressure ulcers since his last visit. We have been treating with compression wraps and he is now off of antibiotics. The culture taken last week from the left lower leg ulce grew 2 Staph species. 05/26/16. Seen by Dr. Mora. The patient continues to report improvements in terms of pain and drainage associated with bilateral lower leg nonpressure ulcers except for an ulcer over the left medial malleolus which he states is quite painful. He is now off of antibiotics and he feels that the compression wraps continue to be beneficial in terms of treating the chronic livedoid vasculopathy that is the source of his recurrent and very painful ulcers. 05/19/16. Seen by Dr. Mora. The patient continues to report improvements in terms of pain and drainage associated with bilateral lower leg nonpressure ulcers. He is now off of antibiotics and he feels that the compression wraps continue to be beneficial in terms of treating the chronic livedoid vasculopathy that is the source of his recurrent and very painful ulcers. 05/12/16. Seen by Dr. Mora. The patient continues to report improving pain and drainage associated with bilateral lower leg nonpressure ulcers. He continues on Augmentin without reported adverse side effects for chronic wound infection and has tolerated his compression wraps which are treating his chronic livedoid vasculopathy without reporting any problems. 05/06/16. Seen by Dr. Mora. The patient reports decreased pain and drainage associated with bilateral lower leg nonpressure ulcers. He continues on Augmentin without reporting adverse side effects for the chronic wound infections. He's also tolerated his compression wraps and feels that they are beneficial in terms of treating his chronic livedoid vasculopathy. 04/22/16. Seen by Dr. Mora. The patient feels there's been some modest improvement over the past week in the bilateral leg pain associated with the chronic bilateral non- pressure ulcers. He's on Augmentin without reporting adverse side effects for a wound infection and feels the compression wraps have been beneficial in treating the acute flare of livedoid vasculopathy which is the underlying pathology of his recurrent ulcers. 04/15/16. Seen by Dr. Mora. The patient reports significant pain and drainage associated with the bilateral lower leg non-pressure ulcers since his last visit and he's now on Augmentin for a polymicrobial wound infection. Of note, he suffers from livedoid vasculopathy with very painful flares resulting in severe, hypoxic ulceration that's responded well in the past to compression therapy and targeted antibiotics plus hyperbaric oxygen therapy which as been approved and provided off label. 01/01/16. Seen by Dr. Mora. The patient does not report pain or significant drainage associated with the left lower leg non-pressure ulcers since he started taking moxifloxacin 3 days ago. Of note, this was not prescribed recently and he states it was left over from a previous prescription written a few months ago. He has a long history of bilateral lower leg ulcers associated with livedoid vasculopathy and he feels compression therapy and targeted antibiotic therapy, along with HBOT, have been quite effective at managing acute flares. 10/31/15 Seen by Reginaldo Gallagher PA-C. The patient states that he has completed his course of moxifloxacin and his ulcers have improved remarkably with decreased pain and drainage. 10/13/15 Seen by Reginaldo Gallagher PA-C. The patient reports fevers and chills in the past few days. He also reports that he has not obtained, or started taking the bactrim that was prescribed due to some confusion with his prescription and the pharmacy. His ulcer culture has returned with strep spp. He reports continued pain and drainage form his ulcers. 09/30/15 Seen by Reginaldo Gallagher PA-C. The patient returns to our clinic with a recurrence and worsening of his livedoid vasculopathy ulcers of the right and left lower legs. He reports that they have been extremely painful in the past week which has prompted him to come to this appointment. The pain is described as searing and burning, non-radiating and up to 10/10 exacerbated by the ulcers being touched. 03/06/[address] Mora. The patient reports only moderate discomfort associated with the right medial lower leg ulcer but otherwise no pain with the other lower leg ulcers. He also reports only minimal drainage from the ulcers and feels the daily compression wraps continue to be effective. 02/24/15 Seen by Reginaldo Gallagher PA-C. The patient notes improvement in pain and drainage from his ulcers. With this recent episode of lividoid vasculopathy it appears that there were no identifiable triggering events. The ulcers appeared to respond to culture- directed antibiotic therapy, debridement when tolerated, hyperbaric oxygen treatments and compression. It is unclear if nifedipine helped. His pain is now 1-04/30. 02/17/15 Seen by Reginaldo Gallagher PA-C. The patient continues to report more pain and drainage from his right lower leg ulcers than his left. He is concerned about new areas of ecchymosis that look like they're going to blow up again. He is not on nifedipine at this point as an adjunct treatment for his livedoid vasculopathy though he recalls that my feet and toes felt warmer when I was taking it. 02/06/[address] Mora. The patient does not report drainage from his chronic bilateral lower leg non-pressure ulcers and reports only minimal pain associated with the right lower leg medial ulcer. 01/30/[address] Mora. The patient reports less pain associated with the bilateral lower leg ulcers and feels the drainage continues to decrease since starting HBOT and compression wrap therapy. He continues on Bactrim for the MSSA positive wound culture and does not report adverse side effects. 01/16/[address] Mora. The patient states the pain associated with his right lower leg ulcers is still present but much improved since starting HBOT and utilizing compression wraps. He feels the drainage from all bilateral lower leg ulcers continues to decrease also an he continues on Bactrim for an MSSA positive wound culture from 01/04/15 and he does not report adverse side effects. 01/02/[address] Mora. The patient reports increasing pain and drainage associated with the left lower leg ulcers but he does not report fever. His left compression wrap has soaked through and he's not currently on antibiotics. 12/20/[address] Mora. The patient feels the bilateral lower leg pain associated with the chronic livedoid vasculopathy ulcers improved somewhat with compression therapy and he's also started taking low dose nifedipine for the condition but reports a headached since starting to take this. His wound culture of the right medial ulcer grew resistant coag negative Staph and he's currently not on antibiotics. The staff report minimal drainage on the left left and moderate from the right lower leg medial ulcer. Of note, he was also approved by his insurer for hyperbaric oxygen therapy as off label treatment for the recent severe flare of lower leg ulcerations as described in my previous note. 12/12/[address] Mora. The patient complains of increasing bilateral lower leg pain and feels there are new ulcers, particularly on the right medial lower leg, forming and draining. He's been applying Comprilan compression wraps at home which offer symptomatic relief and he's reported fevers over the weekend but also states he has some ear pain. He' s not currently on antibiotics and his wound culture from 11/27/14 showed no organisms. 11/27/14 Seen by Reginaldo Gallagher PA-C. The patient continues to have persistent and severe pain in his leg wounds with the left leg worse than the right. He has noted multiple new areas of purpuric rash and new small ulcers forming on both lower legs. These symptoms are consistent with previous flares of his lividoid vasculopathy. His most recent flare of this condition, one year ago, his ulcers progressed to the point of exposed tendon and muscle and required hyperbaric oxygen treatment to reverse the progression of disease. He has been taking levaquin for Enterobacter Cloacae which was cultured from his wound and has noted no improvement since starting the levaquin. 11/20/[address] Mora. The patient reports persistent pain in both the left and right lower legs and feels the ulcers over both legs are deteriorating a bit despite being on doxycycline. The ulcers continue to drain and he's been gently wrapping the legs with an ALEJANDRO bandage as he feels this has relieved the discomfort in the past. He does not report fever or chills. 11/11/[address] Mora. The patient feels his left leg pain and swelling have improved since starting doxycycyline at the last visit for a Klebsiella, Enterococcus, coag neg Staph wound culture from 11/01/14. 11/04/[address] Mora. The patient reports increased pain and swelling in the left lower leg with subjective fevers over the past few days. He does not report increased drainage from his ulcers however. His left lower leg ulcer wound culture returned Klebsiella, Enterobacter, and coag negative Staph on 11/03/14. He also feels that the previously described lesions over the anterior left lower leg have now deteriorated into new ulcers. 10/18/[address] Mora. The patient continues to complains of moderate to severe intermittent pain at the site of the left lower leg proximal ulcer however he reports only minimal drainage from his ulcers and is changing dressings about every 3 days. He's been off of antibiotics for the past week. 10/10/[address] Mora. The patient continues to report pain associated with the left lower leg ulcer that's especially noticeable when the leg swells. He reports continued drainage from both this site and the left medial malleolar ulcer and he's completed his course of clindamycin. 09/30/14 Seen by Reginaldo Gallagher PA-C. The patient reports that his wounds are less painful today and are draining a little less as well. 09/17/14 Seen by Reginaldo Gallagher PA-C. The patient reports increased pain in his wounds without increased drainage. Pain is increased when the wounds are touched and is severe 8-9/10 and non-radiation. Described as a burning/stabbing pain. He is currently on Bactrim DS. 09/05/14 Seen by Reginaldo Gallagher PA-C. The patient reports he has not purchased Hibiclens soap yet but has been trying to keep the wounds clean. 08/29/14 Seen by Reginaldo Gallagher PA-C. The patient complains of increased pain from his wounds. Drainage is stable. He notes that he scrubs his wounds with soap and tap water on a frequent basis. He is not currently on antibiotics. 08/13/[address] Mora. The patient is now off Bactrim that was given for an ESBL E. coli positive wound culture of the left lower leg ulcer. He feels the pain, swelling , and drainage associated with the ulcers is now minimal but the lesion on the dorsum of the foot is now open. 08/01/[address] Mora. The patient feels the pain and drainage associated with the left lower leg ulcers as well as the swelling in the lower leg has improved since changing to Bactrim from clindamycin. 07/26/[address] Mora. The patient complains of increased pain over the anterior left lower leg and is concerned about possible new ulcers that may be developing in the area. He continues on clindamycin and does not report increased drainage from either of the two existing left lower leg ulcers. 07/18/14 The patient reports minimal drainage and pain associated with his two remaining left lower leg ulcers. He's been taking clindamycin however only twice daily instead of three times daily as prescribed. 07/11/14 The patient feels the pain and drainage from the remaining left lower leg ulcers has improved considerably over the past week however the anterior proximal ulcer is still quite tender. 07/03/14 The patient reports no fever or chills and no complications from his antibiotics or HBOT. 07/01/14 The patient's wound culture grew resistant coag negative Staph and he reports little improvement in the left lower leg ulcer pain and drainage over the past week. He also feels the swelling in the leg has not improved. He does not report fever, chills, or sweats. 06/26/14 The patient feels his left lower leg ulcers are draining less as the alginate he's been using seems to be dry. He continues on Bactrim and although the ulcers continue to be painful they're subjectively improving in terms of pain, leg swelling, and erythema. He' s also continued with HBOT and states he noticed his left leg was quite uncomfortable during the ascent yesterday. He complains of a headache today but no fever, chills, or other constitutional symptoms. 06/17/14 The patient reported a red rash of unknown significance, located on his back yesterday to the home infusion nurse. This rash appeared after his second infusion of ertapenem and the patient reports it was short lived, resolved spontaneously and was somewhat itchy. Yesterday the patient initially agreed to a TID regimen of a cephamycin antibiotic that his ESBL ecoli bacteria was sensitive to. He then became angry and agitated at the infusion center when he presented for his test dose. He left without receiving his infusion. Furthermore, today he reports blisters at the site of his PICC dressing and there is dried blood under the dressing. We discussed his chart-reported sulfa allergy, as his organism is sensitive to Bactrim. He reports this allergy was recorded on his chart after he had a red, linear, non- puritic rash on his abdomen while taking a sulfa antibiotic. He reports he finished several more days of the antibiotic and the rash resolved. He does not believe he has ever had an anaphylactic reaction once it's signs and symptoms were described. 06/10/14 The patient reports a significant increase in pain and drainage at the site of the left lower leg ulcers over the past week. He also reports swelling in the leg. 06/03/14 The patient reports that he hated the SNAP dressing and does not want it reapplied. He reports that the canister bothered him to the point of not being able to sleep, and the drainage from the non-included area of the SNAP caused maceration. 05/16/14 The patient feels the drainage from his left lower leg ulcer has decreased since treating his pansensitive coag negative Staph culture from the site with doxycycline after the last visit. This pain has also improved. He states he still required daily dressing changes however. 05/09/14 The patient still complains of pain at the left lower leg medial ulcer and states he needs to change the dressing daily. Otherwise he feels the lateral ulcer is nearly healed. 04/17/14 The patient reports increased inflammation, pain, and itching at the left medial ulcer site. He continues to have moderate drainage there requiring daily dressing changes. His wound culture from the lateral left foot ulcer on 04/02/14 grew coag negative Staph without sensitivities reported. He does not report fever or chills. 04/11/14 The patient reports decreased pain from his wounds and no drainage from his right lateral lower leg wound. He does not report fever or chills. 04/02/14 The patient reports increased pain in the left lower leg ulcers and has been of doxycycline for the past week. This was started based on his coag neg Staph wound culture from [facility]. He also reports subjective fevers and feeling generally unwell for the past few days. 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; complication of HBOT; s/p bilateral tympanoplasty) Complaints and Symptoms This information was obtained from the patient Patient complains of: General Notes: I have reviewed and concur with the Review of Systems and Past Family Social History documents completed by the clinician, I have reviewed and concur with the Wound Assessment document completed by the clinician Cardiovascular (Central/Peripheral): Lower extremity (leg) swelling Hematologic/Lymphatic: Bleeding / Clotting Disorders Integumentary (Hair/Skin/Nails): Lesions, Open Sore Prior Wound History: Bleeding, Drainage, Erythema, Malodor, Pain Patient denies complaints or symptoms related to: Cardiovascular (Central/Peripheral): Lower extremity (leg) resting pain Constitutional Symptoms (General Health): Chills, Fever, Marked Weight Change Ear/Nose/Mouth/Throat: Hearing Loss / Aid Eyes: Partial/Complete Blindness Gastrointestinal (GI): Nausea / Vomiting Hematologic/Lymphatic: Bleeding Tendency Musculoskeletal: Assistive Devices, Muscle Weakness Neurological: Loss of Protective Sensation Psychiatric: Memory Loss Respiratory: Oxygen Use, Shortness of Breath OBJECTIVE Constitutional Vital signs reviewed and noted. Well developed. Alert. Clean appearing.. Height/ Length: 73 in (185.42 cm), Weight: 192.4 lbs (87.45 kgs), BMI: 25.4, Temperature: 98.9 ?F ( 37.17 ?C), Pulse: 86 bpm, Respiratory Rate: 18 breaths/min, Blood Pressure: 129/84 mmHg, Capillary Blood Glucose: 98 mg/dl, Pulse Oximetry: 97 %. Ears, Nose, Mouth, and Throat: No clinically significant hearing loss on informal examination. Respiratory: No respiratory distress. Even respirations and without use of accessory muscles.. Cardiovascular: Affected extremity exhibits no peripheral edema or cyanosis, is warm, and is well perfused. Capillary refill is less than 2 seconds. Integumentary (Hair, Skin) Hemosiderin staining noted over bilateral lower legs. Refer to appropriate clinician wound documentation for this visit; right and left lower leg ulcers extend to subcut with bases partially covered with pink granulation, remainder fibrin and slough. Bilateral lower leg periulcer rash and erythema have nearly resolved. Wound #31 Left, Lateral Leg and Foot is a chronic Full Thickness Vasculitic Ulcer and has received a status of Not Healed. Subsequent wound encounter measurements are 8.5cm length x 4.5cm width x 0.1cm depth, with an area of 38.25 sq cm and a volume of 3.825 cubic cm. No tunneling has been noted. No sinus tract has been noted. No undermining has been noted. There is a moderate amount of sero-sanguineous drainage noted which has no odor. The patient reports a wound pain of level 5/10. The wound margin is irregular. Wound bed has No epithelialization, No eschar, Yes slough, Yes bright red, firm granulation. The periwound skin texture is normal. The periwound skin moisture is normal. The periwound skin exhibited: Erythema, Hemosiderosis. The periwound skin did not exhibit: Atrophie Mant[place], Cyanosis, Ecchymosis, Pallor, Rubor. The temperature of the periwound skin is Warm. Periwound skin presents with s/s of infection. Confirmation Description and Treatment Plan is: Signs and Symptoms Present. Local Pulse is Palpable. Wound #32 Left, Medial Leg is a chronic Full Thickness Vasculitic Ulcer and has received a status of Not Healed. Subsequent wound encounter measurements are 14cm length x 6cm width x 0.1cm depth, with an area of 84 sq cm and a volume of 8.4 cubic cm. No tunneling has been noted. No sinus tract has been noted. No undermining has been noted. There is a moderate amount of sero-sanguineous drainage noted which has no odor. The patient reports a wound pain of level 5/10. The wound margin is irregular. Wound bed has Yes epithelialization, No eschar, Yes slough, Yes bright red, pink, firm granulation. The periwound skin texture is normal. The periwound skin exhibited: Atrophie Mant[place], Hemosiderosis. The periwound skin did not exhibit: Dry/Scaly, Moist, Maceration , Cyanosis, Ecchymosis, Erythema, Pallor, Rubor. The temperature of the periwound skin is Warm. Periwound skin does not exhibit signs or symptoms of infection. Local Pulse is Palpable. Wound #34 Right, Medial Leg is a chronic Full Thickness Vasculitic Ulcer and has received a status of Not Healed. Subsequent wound encounter measurements are 11cm length x 5cm width x 0.1cm depth, with an area of 55 sq cm and a volume of 5.5 cubic cm. No tunneling has been noted. No sinus tract has been noted. No undermining has been noted. There is a moderate amount of sero-sanguineous drainage noted which has no odor. The patient reports a wound pain of level 5/10. The wound margin is unable to assess. Wound bed has No epithelialization, No eschar, Yes slough, Yes bright red, pink, firm granulation. The periwound skin texture is normal. The periwound skin moisture is normal. The periwound skin exhibited: Hemosiderosis. The periwound skin did not exhibit: Atrophie Mant[place], Cyanosis, Ecchymosis, Erythema, Pallor, Rubor. The temperature of the periwound skin is Warm. Periwound skin presents with s/s of infection. Confirmation Description and Treatment Plan is: Signs and Symptoms Present. Local Pulse is Palpable. Wound #35 Right, Lateral Leg is a chronic Full Thickness Vasculitic Ulcer and has received a status of Not Healed. Subsequent wound encounter measurements are 9cm length x 7cm width x 0.1cm depth, with an area of 63 sq cm and a volume of 6.3 cubic cm. No tunneling has been noted. No sinus tract has been noted. No undermining has been noted. There is a moderate amount of sero-sanguineous drainage noted which has no odor. The patient reports a wound pain of level 5/10. The wound margin is irregular. Wound bed has Yes epithelialization, No eschar, Yes slough, Yes pink, firm granulation. The periwound skin texture is normal. The periwound skin moisture is normal. The periwound skin exhibited: Hemosiderosis. The periwound skin did not exhibit: Atrophie Mant[place], Cyanosis, Ecchymosis, Erythema, Pallor, Rubor. The temperature of the periwound skin is Warm. Periwound skin does not exhibit signs or symptoms of infection. Local Pulse is Palpable. Wound #36 Right Foot is a chronic Full Thickness Vasculitic Ulcer and has received a status of Not Healed. Subsequent wound encounter measurements are 1.5cm length x 0.3cm width x 0.1cm depth, with an area of 0.45 sq cm and a volume of 0.045 cubic cm. No tunneling has been noted. No sinus tract has been noted. No undermining has been noted. There was no drainage noted. The patient reports a wound pain of level 5/10. The wound margin is unable to assess. Wound bed has No epithelialization, No eschar, Yes slough, No granulation. The periwound skin texture is normal. The periwound skin moisture is normal. The periwound skin color is normal. The temperature of the periwound skin is WNL. Periwound skin does not exhibit signs or symptoms of infection. Local Pulse is Palpable. Neurological: Cranial nerves grossly intact with symmetric function normal by informal observation.. 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 A selective debridement with a total area debrided of 38.25 sq cm was performed by Noah Mora MD. to remove devitalized tissue: exudate and slough. The following instrument(s) were used: curette. Pain control was achieved using EMLA lidocaine/prilocaine 2.5%/2.5%. A time out was conducted prior to the start of the procedure. A minimal amount of bleeding was controlled with pressure. The procedure was tolerated well with a pain level of 0 throughout and a pain level of 0 following the procedure. Post Debridement Measurements: 8.5cm length x 4.5cm width x 0.2cm depth; with an area of 38.25 sq cm and a volume of 7.65 cubic cm; Wound #32 Wound #32 (Vasculitic Ulcer) is located on the left, medial leg. A selective debridement with a total area debrided of 84 sq cm was performed by Noah Mora MD. to remove devitalized tissue: exudate and slough. The following instrument(s) were used: curette. Pain control was achieved using EMLA lidocaine/prilocaine 2.5%/2.5%. A time out was conducted prior to the start of the procedure. No bleeding occurred. The procedure was tolerated well with a pain level of 0 throughout and a pain level of 1 following the procedure. Post Debridement Measurements: 14cm length x 6cm width x 0.1cm depth; with an area of 84 sq cm and a volume of 8.4 cubic cm; Wound #34 Wound #34 (Vasculitic Ulcer) is located on the right, medial leg. A selective debridement with a total area debrided of 55 sq cm was performed by Noah Mora MD. to remove devitalized tissue: slough. The following instrument(s) were used: curette. Pain control was achieved using EMLA lidocaine/prilocaine 2.5%/2.5%. A time out was conducted prior to the start of the procedure. No bleeding occurred. The procedure was tolerated well with a pain level of 0 throughout and a pain level of 0 following the procedure. Post Debridement Measurements: 11cm length x 5cm width x 0.1cm depth; with an area of 55 sq cm and a volume of 5.5 cubic cm; Wound #35 Wound #35 (Vasculitic Ulcer) is located on the right, lateral leg. A selective debridement with a total area debrided of 63 sq cm was performed by Noah Mora MD. to remove devitalized tissue: exudate and slough. The following instrument(s) were used: curette. Pain control was achieved using EMLA lidocaine/prilocaine 2.5%/2.5%. A time out was conducted prior to the start of the procedure. No bleeding occurred. The procedure was tolerated well with a pain level of 0 throughout and a pain level of 0 following the procedure. Post Debridement Measurements: 9cm length x 7cm width x 0.2cm depth; with an area of 63 sq cm and a volume of 12.6 cubic cm; PLAN Wound Orders: Wound #31 Left, Lateral Leg and Foot Anesthetic Topical Xylocaine to wound bed. - EMLA cream to all wounds. Cleanser Cleanse Wound: - Normal saline and gauze. May Shower. - Please cover with cast protector in shower. Cleanse wound with Soap and Water. - Leg washed with foaming cleanser and water at each visit. Topical Treatments Antibiotic/Antimicrobial Ointment/Cream. - Triple antibiotic ointment to wound bed, Triamcinolone cream to surrounding areas. Dressings Primary dressing: - Large telfa pads Cover and secure with: - conform and tape. Change Dressing: - Change every two days. Wound #32 Left, Medial Leg Anesthetic Topical Xylocaine to wound bed. - EMLA cream to all wounds. Cleanser Cleanse Wound: - Normal saline and gauze. May Shower. - Please cover with cast protector in shower. Cleanse wound with Soap and Water. - Leg washed with foaming cleanser and water at each visit. Topical Treatments Antibiotic/Antimicrobial Ointment/Cream. - Triple antibiotic ointment to wound bed, Triamcinolone cream to surrounding areas. Dressings Primary dressing: - Large telfa pads Cover and secure with: - conform and tape. Change Dressing: - Change every two days. Wound #34 Right, Medial Leg Anesthetic Topical Xylocaine to wound bed. - EMLA cream to all wounds. Cleanser Cleanse Wound: - Normal saline and gauze. May Shower. - Please cover with cast protector in shower. Cleanse wound with Soap and Water. - Leg washed with foaming cleanser and water at each visit. Topical Treatments Antibiotic/Antimicrobial Ointment/Cream. - Triple antibiotic ointment to wound bed, Triamcinolone cream to surrounding areas. Dressings Primary dressing: - Large telfa pads Cover and secure with: - conform and tape. Change Dressing: - Change every two days. Wound #35 Right, Lateral Leg Anesthetic Topical Xylocaine to wound bed. - EMLA cream to all wounds. Cleanser Cleanse Wound: - Normal saline and gauze. May Shower. - Please cover with cast protector in shower. Cleanse wound with Soap and Water. - Leg washed with foaming cleanser and water at each visit. Topical Treatments Antibiotic/Antimicrobial Ointment/Cream. - Triple antibiotic ointment to wound bed, Triamcinolone cream to surrounding areas. Dressings Primary dressing: - Large telfa pads Cover and secure with: - conform and tape. Change Dressing: - Change every two days. Wound #36 Right Foot Anesthetic Topical Xylocaine to wound bed. - EMLA cream to all wounds. Cleanser Cleanse Wound: - Normal saline and gauze. May Shower. - Please cover with cast protector in shower. Cleanse wound with Soap and Water. - Leg washed with foaming cleanser and water at each visit. Topical Treatments Antibiotic/Antimicrobial Ointment/Cream. - Triple antibiotic ointment to wound bed, Triamcinolone cream to surrounding areas. Dressings Primary dressing: - Large telfa pads Cover and secure with: - conform and tape. Change Dressing: - Change every two days. Additional Orders: Compression/Edema Control Single Layer Compression Hose - [facility] assistant E Follow-Up Appointments Return Appointment: - - One week Other information: If you develop fever, chills, increased pain, drainage, redness or swelling please call our office. If after hours, respond to the ER. Should you experience any significant changes in your wound(s) or have any questions regarding your home care instructions please contact the wound center @ [phone]. If after hours, contact your primary care physician or go to the hospital emergency room. Scribing Attestation I attest, as the nurse, that I scribed these orders for the physician. Laboratory: Bacteria identified in Wound by Culture - #35 right lateral leg. I've reviewed the clinician's documentation and agree with the evaluation and plan as written. In addition the patient's ulcers demonstrate evidence of non-viable devitalized tissue and they will continue to benefit from sharp debridement to help promote granulation and expedite healing. Also, I've going to hold the compression wraps to allow the patient to apply topical triamcinolone ointment to the erythematous areas of the lower legs every other day. I've taken a culture from the right lateral lower leg where he reports considerable pain and we'll consider restarting antibiotics pending the results. Electronic Signature(s) Signed By: Date: Noah Mora MD 09/02/2017 08:42:30 Entered By: Noah Mora on 09/02/2017 08:39:48
== END ==
PROVIDERS: PCP Internal Medicine; Visit Provider Internal Medicine
DX: I87.2 Venous insufficiency (chronic) (peripheral) (principal); L97.822 Non-pressure chronic ulcer of other part of left lower leg with fat layer exposed; L97.812 Non-pressure chronic ulcer of other part of right lower leg with fat layer exposed; L95.0 Livedoid vasculitis; R21 Rash and other nonspecific skin eruption; M79.661 Pain in right lower leg
CPT/HCPCS: 87070; 87075; 87077; 87147; 87186; 87205; 97597; 97598

== ENCOUNTER → 2017-09-08 11:23 | Outpatient (CLI) | payer MEDICARE, SELFPAY ==
--- NOTE | 2017-09-08 | OV.WND_ITS ---
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 Allergies adhesive tape (Reaction: blisters), Neosporin ([id number]) (Reaction: inflamed), neomycin (Reaction: inflammation), polymyxin B (Reaction: inflammation) HPI This information was obtained from the patient 09/08/17. Seen by Reginaldo Gallagher PA-C. The patient reports stable pain and drainage from his lower leg ulcers. He also reports a red pruritic rash on his lower legs that he believes is from the compression wraps and the recent warm weather. 09/01/17. Seen by Dr. Mora. The patient reports continued pain associated with the bilateral lower leg vasculitic nonpressure ulcers and he completed his course of Bactrim 2 days ago. 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 He's tolerated compression wraps which have been effective at treating acute flares and we used [employer] to cover the ulcers at the last visit presuming Xeroform was causing a contact dermatitis and considerable inflammation of the lower legs. 08/29/17. Seen by Dr. Mora. The patient reports continued pain associated with the bilateral lower leg cellulitis and associated vasculitic nonpressure ulcers and continues on Bactrim without reporting adverse side effects. He's also tolerating negative pressure wound therapy which has been effective in reversing the acute flares associated with his livedoid vasculopathy over the past few years. 08/22/17. Seen by Dr. Mora. 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 He's tolerating the compression wraps however without difficulty. 08/16/17. Seen by Dr. Mora. The patient reports improvement in terms of pain associated with the bilateral lower leg cellulitis and associated vasculitic nonpressure ulcers that are caused by underlying severe livedoid vasculopathy. His wound culture from the last visit grew two MSSA resistant species. He also tolerated compression therapy with the Coban compression wraps without difficulty. 08/11/17. Seen by Dr. Mora. The patient reports increased pain and drainage associated with the chronic bilateral lower leg vasculitic ulcers over the past few days and he has a low grade fever of 99F today. He's been off of Bactrim for 10 days and has had compression wraps on the legs for about 9 days prior to cutting them off yesterday. 08/02/17. Seen by Dr. Mora. The patient continues on Bactrim for cellulitis associated with the bilateral lower leg vasculitic ulcers and feels the pain is improving. He's also tolerated compression therapy without difficulty. 07/28/17. Seen by Dr. Mora. The patient returns to our clinic with an acute flare of his bilateral lower leg livedoid vasculopathy that he's state is very painful and has been draining considerably. He was seen in the walk-in clinic last Tuesday and started on Bactrim. He feels the pain in improving however it's still quite severe. He does not report fevers or feeling unwell otherwise and has been applying an OTC compression wrap to the legs. He also states he's on a work program for the [employer] [facility] department. 02/16/17. Seen by Dr. Mora. The patient does not report significant pain or increased drainage associated with bilateral lower leg nonpressure ulcers and he has completing his course of Bactrim that was treating the recent Klebsiella positive wound culture. 02/08/17. Seen by Reginaldo Gallagher PA-C. The patient reports decreased pain and drainage from his lower leg ulcers after taking bactrim for several days. 02/03/17. Seen by Dr. Mora. The patient reports increased pain associated with bilateral lower leg nonpressure ulcers despite taking Augmentin for the past week which is treating the recent Klebsiella positive wound culture. He also feels the compression wraps are contributing to the discomfort. 01/27/17. Seen by Dr. Mora. The patient reports improvement in his pain associated with the bilateral lower leg nonpressure ulcers since starting on Augmentin after his visit last week. He is amenable to compression therapy today that has been effective at treating his severe livedoid vasculopathy which is the source of his ulcers. 01/21/17. Seen by Dr. Mora. The patient continues on Augmentin for the bilateral lower leg nonpressure ulcers infections. He feels that the pain has improved modestly and does not report adverse side effects from antibiotics. He also does not wish to have compression wraps placed today which have been very effective in the past at treating the ulcers associated with livedoid vasculopathy. 01/14/17. Seen by Rgeinaldo Gallagher PA-C. The patient reports decreased pain and drainage from his right lateral lower leg and foot ulcers since starting his cipro. He reports that he should have several more doses but has lost his bottle. 01/11/17. Seen by Reginaldo Gallagher PA-C. The patient reports increased pain and drainage from his right lateral ulcer. He denies fever, chills or malaise. 01/07/17. Seen by Dr. Mora. The patient returns to clinic with recurrence of his bilateral lower extremity vasculitic ulcers. He carries a diagnosis of livedoid vasculopathy and was seen by recently with no changes to his management plan. He reports moderate pain with minimal drainage associated with the ulcers and has been applying compression wraps at home which is been the standard treatment. He does not report fevers or feeling unwell in general. 12/22/16. Seen by Reginaldo Gallagher PA-C. The patient reports he has restarted his 3 drug regimen for his livedoid vasculopathy after seeing Dr. Carmichael 2 days ago. He also reports increased pain and drainage from his right lower leg ulcer. 12/01/16. Seen by Reginaldo Gallagher PA-C. The patient reports no increase in drainage or pain from his chronic lower extremity ulcers. He again does not want multi-layer compression applied today due to forecast high temperatures. 11/25/16. Seen by Reginaldo Gallagher PA-C. The patient reports improvement in his pain and drainage from his lower extremity ulcers. He does not want to be wrapped this week due to discomfort with the wraps. 11/17/16. Seen by Reginaldo Gallagher PA-C. The patient reports that he now is taking danazol and aspirin to treat his livedoid vasculopathy, but is currently unable to get his prescribed trental, which is the 3rd drug in his 3 drug regimen that has been effective so far in treating his condition. 11/10/16. Seen by Reginaldo Gallagher PA-C. The patient reports persistent erythema and drainage from his left lower extremity ulcers which are known to be infected at this time. He has been able to procure his Bactrim DS and began taking it yesterday. In addition he has decided to resume taking danazol to treat his livedoid vasculopathy. 11/03/16. Seen by Reginaldo Gallagher PA-C. The patient reports he has been unable to afford his Bactrim DS prescription and has not yet picked it up. He grew S. Maltophilia and an coagulase negative staph. 10/27/16. Seen by Reginaldo Gallagher PA-C. The patient reports decreased drainage from his lower extremity ulcers and general improvement in all of the ulcers with the exception of an odor from the left ankle ulcers. 10/20/16. Seen by Reginaldo Gallagher PA-C. The patient reports missing a day of oral antibiotics but intends to continue the course. He has not procured his danazol as he is concerned about androgen-related side effects. 10/13/16. Seen by Reginaldo Gallagher PA-C. The patient reports that he now has medicare insurance coverage, though he has not yet attempted to use it to fill his prescription for danazol which treats his livedoid vasculopathy. He reports continued pain and drainage from his left foot ulcer and has been applying topical gentamicin but only procured the augmentin to treat it 1 day ago stating that I wasn't really going to be all that effective right? 10/06/16. Seen by Reginaldo Gallagher PA-C. The patient's recent wound culture has resulted with ESBL + E. Coli which is resistant to most oral antibiotics. Notably it is intermediately sensitive to Augmentin and it is sensitive to gentamicin. He reports improvement in the right foot and leg ulcers and continued pain and drainage from the left leg ulcers. 09/29/16. Seen by Reginaldo Gallagher PA-C. The patient reports significantly increased pain and drainage from his left medial ankle ulcer and decreased pain and drainage from his other ulcers. 09/16/16. Seen by Reginaldo Gallagher PA-C. The patient reports continued pain from her lower leg ulcers but the pain and drainage has decreased in recent days. He tolerates compression therapy and believes it is working though complains it is difficult to put up with during the hot weather we've had recently. 09/09/16. Seen by Dr. Mora. The patient report persistent but improving pain associated with the bilateral lower leg vasculitic non-pressure ulcers since his last visit. He' s tolerating compression therapy and does not report fevers or feeling unwell. 09/02/16. Seen by Reginaldo Gallagher PA-C. The patient reports continued pain and some decrease in drainage from his bilateral ulcers of both lower legs and feet. He has not been able to secure medical insurance and remains unable to afford one ot the medications that threats his livedoid vasculopathy. 08/26/16. Seen by Dr. Mora. The patient continues to report pain associated with the bilateral lower leg non-pressure ulcers but feels its improving since starting antibiotics and compression therapy 2 weeks ago. He does not report fevers or feeling unwell and has tolerated the wraps without difficulty. 08/20/16. Seen by Dr. Mora. The patient reports a modest improvement in terms of pain since starting compression wrap therapy for his chronic bilateral lower leg vasculitic nonpressure ulcers. He has been on Bactrim for the past few days however his wound culture shows resistance to this and he does not report fevers, feeling unwell, or adverse side effects from the Bactrim. His ulcers result from his chronic llivedoid vasculopathy that he' s experienced for many years. 08/17/16. Seen by Dr. Mora. The patient continues to report persistent pain associated with the bilateral lower leg vasculitic nonpressure ulcers. He's tolerating his compression wraps without difficulty and staff feel that the drainage continues to be quite significant. 08/11/16. Seen by Dr. Mora. The patient reports modest improvement in terms of his bilateral lower leg pain since we started compression wraps at the last visit and he was started on Augmentin. He is being treated for recurrent and chronic vasculitic ulcers associated with his bilateral lower leg livedoid vasculopathy. 08/06/16. Seen by Dr. Mora. The patient reports a significant increase in pain and drainage associated with the chronic and recurrent bilateral lower leg nonpressure ulcers. He has been on Flagyl for a recent polymicrobial anaerobic positive culture of the wounds. 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 He does not report fevers or feeling unwell except for significant lower leg pain at this time. 07/26/16. Seen by Reginaldo Gallagher PA-C. The patient reports he remains without insurance and consequently unable to afford his Danazol. He also did not rock picker his refill of Flagyl for unspecified reasons. Ulcer drainage has been stable. 07/20/16. Seen by Reginaldo Gallagher PA-C. The patient reports that he has still not enrolled in Medicare and can not afford his Danazol for treatment of his livedoid vasculopathy. He was able to afford his levaquin and flagyl, which he has been taking for his polymicrobial ulcer infection. 07/12/16. Seen by Reginaldo Gallagher PA-C. The patient reports an increase in pain from his right and left foot livedoid vasculopathy ulcers. The pain is described as searing and burning and is constant but worsened by standing or anything touching the ulcers with his highest pain level reported at 10/10. He continues not to be enrolled in Medicare and still can not afford his Danazol which is used to treat his chronic condition. In addition he reports a fishy odor from the ulcers. 07/05/16. Seen by Reginaldo Gallagher PA-C. The patient reports that despite being eligible for Medicare due to disability, he has not filled out the appropriate paperwork and thus in uninsured at this time. Consequently he has been unable to afford his prescription for Danazol, which treats his livedoid vasculopathy. He reports continued pain and drainage from his right and left lower extremity ulcers. 06/23/16. Seen by Dr. Mora. The patient reports some increased swelling in both lower legs as well as significant pain associated with the right foot vasculitic ulcer. He does not report significant pain nor drainage associated with the other bilateral lower leg ulcers. 06/16/16. Seen by Dr. Mora. The patient reports modest improvement in terms of pain associated with bilateral lower leg non-pressure ulcers since his last visit and he continues on Augmentin and to apply topical gentamicin to the ulcers to treat the recent coag negative Staph cultures. He's also wearing compression stockings as recommended which are effective at minimizing the effect of his livedoid vasculopathy on ulcer formation and healing. 06/09/16. Seen by Dr. Mora. The patient reports persistent pain associated with the left medial lower leg non-pressure ulcers since last week and his recent wound culture grew two coag negative Staph species. He does not report significant pain or increased drainage associated with the other bilateral lower leg ulcers. Of note, he was without compression wraps for the past week which are treating chronic bilateral lower leg edema associated with his diagnosis of livedoid vasculopathy. He feels his legs may be more swollen than at his last visit. 06/02/16. Seen by Dr. Mora. The patient reports significant improvement in terms of pain associated with bilateral lower leg non-pressure ulcers since his last visit. We have been treating with compression wraps and he is now off of antibiotics. The culture taken last week from the left lower leg ulce grew 2 Staph species. 05/26/16. Seen by Dr. Mora. The patient continues to report improvements in terms of pain and drainage associated with bilateral lower leg nonpressure ulcers except for an ulcer over the left medial malleolus which he states is quite painful. He is now off of antibiotics and he feels that the compression wraps continue to be beneficial in terms of treating the chronic livedoid vasculopathy that is the source of his recurrent and very painful ulcers. 05/19/16. Seen by Dr. Mora. The patient continues to report improvements in terms of pain and drainage associated with bilateral lower leg nonpressure ulcers. He is now off of antibiotics and he feels that the compression wraps continue to be beneficial in terms of treating the chronic livedoid vasculopathy that is the source of his recurrent and very painful ulcers. 05/12/16. Seen by Dr. Mora. The patient continues to report improving pain and drainage associated with bilateral lower leg nonpressure ulcers. He continues on Augmentin without reported adverse side effects for chronic wound infection and has tolerated his compression wraps which are treating his chronic livedoid vasculopathy without reporting any problems. 05/06/16. Seen by Dr. Mora. The patient reports decreased pain and drainage associated with bilateral lower leg nonpressure ulcers. He continues on Augmentin without reporting adverse side effects for the chronic wound infections. He's also tolerated his compression wraps and feels that they are beneficial in terms of treating his chronic livedoid vasculopathy. 04/22/16. Seen by Dr. Mora. The patient feels there's been some modest improvement over the past week in the bilateral leg pain associated with the chronic bilateral non- pressure ulcers. He's on Augmentin without reporting adverse side effects for a wound infection and feels the compression wraps have been beneficial in treating the acute flare of livedoid vasculopathy which is the underlying pathology of his recurrent ulcers. 04/15/16. Seen by Dr. Mora. The patient reports significant pain and drainage associated with the bilateral lower leg non-pressure ulcers since his last visit and he's now on Augmentin for a polymicrobial wound infection. Of note, he suffers from livedoid vasculopathy with very painful flares resulting in severe, hypoxic ulceration that's responded well in the past to compression therapy and targeted antibiotics plus hyperbaric oxygen therapy which as been approved and provided off label. 01/01/16. Seen by Dr. Mora. The patient does not report pain or significant drainage associated with the left lower leg non-pressure ulcers since he started taking moxifloxacin 3 days ago. Of note, this was not prescribed recently and he states it was left over from a previous prescription written a few months ago. He has a long history of bilateral lower leg ulcers associated with livedoid vasculopathy and he feels compression therapy and targeted antibiotic therapy, along with HBOT, have been quite effective at managing acute flares. 10/31/15 Seen by Reginaldo Gallagher PA-C. The patient states that he has completed his course of moxifloxacin and his ulcers have improved remarkably with decreased pain and drainage. 10/13/15 Seen by Reginaldo Gallagher PA-C. The patient reports fevers and chills in the past few days. He also reports that he has not obtained, or started taking the bactrim that was prescribed due to some confusion with his prescription and the pharmacy. His ulcer culture has returned with strep spp. He reports continued pain and drainage form his ulcers. 09/30/15 Seen by Reginaldo Gallagher PA-C. The patient returns to our clinic with a recurrence and worsening of his livedoid vasculopathy ulcers of the right and left lower legs. He reports that they have been extremely painful in the past week which has prompted him to come to this appointment. The pain is described as searing and burning, non-radiating and up to 10/10 exacerbated by the ulcers being touched. 03/06/[address] Mora. The patient reports only moderate discomfort associated with the right medial lower leg ulcer but otherwise no pain with the other lower leg ulcers. He also reports only minimal drainage from the ulcers and feels the daily compression wraps continue to be effective. 02/24/15 Seen by Reginaldo Gallagher PA-C. The patient notes improvement in pain and drainage from his ulcers. With this recent episode of lividoid vasculopathy it appears that there were no identifiable triggering events. The ulcers appeared to respond to culture- directed antibiotic therapy, debridement when tolerated, hyperbaric oxygen treatments and compression. It is unclear if nifedipine helped. His pain is now 1-04/30. 02/17/15 Seen by Reginaldo Gallagher PA-C. The patient continues to report more pain and drainage from his right lower leg ulcers than his left. He is concerned about new areas of ecchymosis that look like they're going to blow up again. He is not on nifedipine at this point as an adjunct treatment for his livedoid vasculopathy though he recalls that my feet and toes felt warmer when I was taking it. 02/06/[address] Mora. The patient does not report drainage from his chronic bilateral lower leg non-pressure ulcers and reports only minimal pain associated with the right lower leg medial ulcer. 01/30/[address] Mora. The patient reports less pain associated with the bilateral lower leg ulcers and feels the drainage continues to decrease since starting HBOT and compression wrap therapy. He continues on Bactrim for the MSSA positive wound culture and does not report adverse side effects. 01/16/[address] Mora. The patient states the pain associated with his right lower leg ulcers is still present but much improved since starting HBOT and utilizing compression wraps. He feels the drainage from all bilateral lower leg ulcers continues to decrease also an he continues on Bactrim for an MSSA positive wound culture from 01/04/15 and he does not report adverse side effects. 01/02/[address] Mora. The patient reports increasing pain and drainage associated with the left lower leg ulcers but he does not report fever. His left compression wrap has soaked through and he's not currently on antibiotics. 12/20/[address] Mora. The patient feels the bilateral lower leg pain associated with the chronic livedoid vasculopathy ulcers improved somewhat with compression therapy and he's also started taking low dose nifedipine for the condition but reports a headached since starting to take this. His wound culture of the right medial ulcer grew resistant coag negative Staph and he's currently not on antibiotics. The staff report minimal drainage on the left left and moderate from the right lower leg medial ulcer. Of note, he was also approved by his insurer for hyperbaric oxygen therapy as off label treatment for the recent severe flare of lower leg ulcerations as described in my previous note. 12/12/[address] Mora. The patient complains of increasing bilateral lower leg pain and feels there are new ulcers, particularly on the right medial lower leg, forming and draining. He's been applying Comprilan compression wraps at home which offer symptomatic relief and he's reported fevers over the weekend but also states he has some ear pain. He' s not currently on antibiotics and his wound culture from 11/27/14 showed no organisms. 11/27/14 Seen by Reginaldo Gallagher PA-C. The patient continues to have persistent and severe pain in his leg wounds with the left leg worse than the right. He has noted multiple new areas of purpuric rash and new small ulcers forming on both lower legs. These symptoms are consistent with previous flares of his lividoid vasculopathy. His most recent flare of this condition, one year ago, his ulcers progressed to the point of exposed tendon and muscle and required hyperbaric oxygen treatment to reverse the progression of disease. He has been taking levaquin for Enterobacter Cloacae which was cultured from his wound and has noted no improvement since starting the levaquin. 11/20/[address] Mora. The patient reports persistent pain in both the left and right lower legs and feels the ulcers over both legs are deteriorating a bit despite being on doxycycline. The ulcers continue to drain and he's been gently wrapping the legs with an ALEJANDRO bandage as he feels this has relieved the discomfort in the past. He does not report fever or chills. 11/11/[address] Mora. The patient feels his left leg pain and swelling have improved since starting doxycycyline at the last visit for a Klebsiella, Enterococcus, coag neg Staph wound culture from 11/01/14. 11/04/[address] Mora. The patient reports increased pain and swelling in the left lower leg with subjective fevers over the past few days. He does not report increased drainage from his ulcers however. His left lower leg ulcer wound culture returned Klebsiella, Enterobacter, and coag negative Staph on 11/03/14. He also feels that the previously described lesions over the anterior left lower leg have now deteriorated into new ulcers. 10/18/[address] Mora. The patient continues to complains of moderate to severe intermittent pain at the site of the left lower leg proximal ulcer however he reports only minimal drainage from his ulcers and is changing dressings about every 3 days. He's been off of antibiotics for the past week. 10/10/[address] Mora. The patient continues to report pain associated with the left lower leg ulcer that's especially noticeable when the leg swells. He reports continued drainage from both this site and the left medial malleolar ulcer and he's completed his course of clindamycin. 09/30/14 Seen by Reginaldo Gallagher PA-C. The patient reports that his wounds are less painful today and are draining a little less as well. 09/17/14 Seen by Reginaldo Gallagher PA-C. The patient reports increased pain in his wounds without increased drainage. Pain is increased when the wounds are touched and is severe 8-9/10 and non-radiation. Described as a burning/stabbing pain. He is currently on Bactrim DS. 09/05/14 Seen by Reginaldo Gallagher PA-C. The patient reports he has not purchased Hibiclens soap yet but has been trying to keep the wounds clean. 08/29/14 Seen by Reginaldo Gallagher PA-C. The patient complains of increased pain from his wounds. Drainage is stable. He notes that he scrubs his wounds with soap and tap water on a frequent basis. He is not currently on antibiotics. 08/13/[address] Mora. The patient is now off Bactrim that was given for an ESBL E. coli positive wound culture of the left lower leg ulcer. He feels the pain, swelling , and drainage associated with the ulcers is now minimal but the lesion on the dorsum of the foot is now open. 08/01/[address] Mora. The patient feels the pain and drainage associated with the left lower leg ulcers as well as the swelling in the lower leg has improved since changing to Bactrim from clindamycin. 07/26/[address] Mora. The patient complains of increased pain over the anterior left lower leg and is concerned about possible new ulcers that may be developing in the area. He continues on clindamycin and does not report increased drainage from either of the two existing left lower leg ulcers. 07/18/14 The patient reports minimal drainage and pain associated with his two remaining left lower leg ulcers. He's been taking clindamycin however only twice daily instead of three times daily as prescribed. 07/11/14 The patient feels the pain and drainage from the remaining left lower leg ulcers has improved considerably over the past week however the anterior proximal ulcer is still quite tender. 07/03/14 The patient reports no fever or chills and no complications from his antibiotics or HBOT. 07/01/14 The patient's wound culture grew resistant coag negative Staph and he reports little improvement in the left lower leg ulcer pain and drainage over the past week. He also feels the swelling in the leg has not improved. He does not report fever, chills, or sweats. 06/26/14 The patient feels his left lower leg ulcers are draining less as the alginate he's been using seems to be dry. He continues on Bactrim and although the ulcers continue to be painful they're subjectively improving in terms of pain, leg swelling, and erythema. He' s also continued with HBOT and states he noticed his left leg was quite uncomfortable during the ascent yesterday. He complains of a headache today but no fever, chills, or other constitutional symptoms. 06/17/14 The patient reported a red rash of unknown significance, located on his back yesterday to the home infusion nurse. This rash appeared after his second infusion of ertapenem and the patient reports it was short lived, resolved spontaneously and was somewhat itchy. Yesterday the patient initially agreed to a TID regimen of a cephamycin antibiotic that his ESBL ecoli bacteria was sensitive to. He then became angry and agitated at the infusion center when he presented for his test dose. He left without receiving his infusion. Furthermore, today he reports blisters at the site of his PICC dressing and there is dried blood under the dressing. We discussed his chart-reported sulfa allergy, as his organism is sensitive to Bactrim. He reports this allergy was recorded on his chart after he had a red, linear, non- puritic rash on his abdomen while taking a sulfa antibiotic. He reports he finished several more days of the antibiotic and the rash resolved. He does not believe he has ever had an anaphylactic reaction once it's signs and symptoms were described. 06/10/14 The patient reports a significant increase in pain and drainage at the site of the left lower leg ulcers over the past week. He also reports swelling in the leg. 06/03/14 The patient reports that he hated the SNAP dressing and does not want it reapplied. He reports that the canister bothered him to the point of not being able to sleep, and the drainage from the non-included area of the SNAP caused maceration. 05/16/14 The patient feels the drainage from his left lower leg ulcer has decreased since treating his pansensitive coag negative Staph culture from the site with doxycycline after the last visit. This pain has also improved. He states he still required daily dressing changes however. 05/09/14 The patient still complains of pain at the left lower leg medial ulcer and states he needs to change the dressing daily. Otherwise he feels the lateral ulcer is nearly healed. 04/17/14 The patient reports increased inflammation, pain, and itching at the left medial ulcer site. He continues to have moderate drainage there requiring daily dressing changes. His wound culture from the lateral left foot ulcer on 04/02/14 grew coag negative Staph without sensitivities reported. He does not report fever or chills. 04/11/14 The patient reports decreased pain from his wounds and no drainage from his right lateral lower leg wound. He does not report fever or chills. 04/02/14 The patient reports increased pain in the left lower leg ulcers and has been of doxycycline for the past week. This was started based on his coag neg Staph wound culture from [facility]. He also reports subjective fevers and feeling generally unwell for the past few days. 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; complication of HBOT; s/p bilateral tympanoplasty) Complaints and Symptoms This information was obtained from the patient Patient complains of: General Notes: I have reviewed and concur with the Review of Systems and Past Family Social History documents completed by the clinician, I have reviewed and concur with the Wound Assessment document completed by the clinician Cardiovascular (Central/Peripheral): Lower extremity (leg) swelling Hematologic/Lymphatic: Bleeding / Clotting Disorders Integumentary (Hair/Skin/Nails): Lesions, Open Sore Prior Wound History: Bleeding, Drainage, Erythema, Malodor, Pain Patient denies complaints or symptoms related to: Cardiovascular (Central/Peripheral): Lower extremity (leg) resting pain Constitutional Symptoms (General Health): Chills, Fever, Marked Weight Change Ear/Nose/Mouth/Throat: Hearing Loss / Aid Eyes: Partial/Complete Blindness Gastrointestinal (GI): Nausea / Vomiting Hematologic/Lymphatic: Bleeding Tendency Musculoskeletal: Assistive Devices, Muscle Weakness Neurological: Loss of Protective Sensation Psychiatric: Memory Loss Respiratory: Oxygen Use, Shortness of Breath OBJECTIVE Constitutional Vital signs reviewed and noted. Well developed, lucid, and in no acute distress. . Height/Length: 73 in (185.42 cm), Weight: 187.3 lbs (85.14 kgs), BMI: 24.7, Temperature: 98.3 ?F (36.83 ?C), Pulse: 81 bpm, Respiratory Rate: 18 breaths/min, Blood Pressure: 131/80 mmHg, Pulse Oximetry: 100 %. Eyes: Conjunctiva clear and without icterus. Pupils are equal and round; EOM's intact. Respiratory: No respiratory distress. Even respirations and without use of accessory muscles.. Integumentary (Hair, Skin) Refer to appropriate clinician wound documentation for this visit; ulcer extends to subcutaneous fat layer. . Wound #31 Left, Lateral Leg and Foot is a chronic Full Thickness Vasculitic Ulcer and has received a status of Not Healed. Subsequent wound encounter measurements are 8cm length x 4.5cm width x 0.1cm depth, with an area of 36 sq cm and a volume of 3.6 cubic cm. No tunneling has been noted. No sinus tract has been noted. No undermining has been noted. There is a moderate amount of sero-sanguineous drainage noted which has no odor. The patient reports a wound pain of level 5/10. The wound margin is irregular. Wound bed has No epithelialization, No eschar, Yes slough, Yes bright red, firm granulation. The periwound skin texture is normal. The periwound skin moisture is normal. The periwound skin exhibited: Erythema, Hemosiderosis. The periwound skin did not exhibit: Atrophie Sarah, Cyanosis, Ecchymosis, Pallor, Rubor. The temperature of the periwound skin is Warm. Periwound skin does not exhibit signs or symptoms of infection. Local Pulse is Palpable. Wound #32 Left, Medial Leg is a chronic Full Thickness Vasculitic Ulcer and has received a status of Not Healed. Subsequent wound encounter measurements are 12cm length x 4.5cm width x 0.1cm depth, with an area of 54 sq cm and a volume of 5.4 cubic cm. No tunneling has been noted. No sinus tract has been noted. No undermining has been noted. There is a moderate amount of sero-sanguineous drainage noted which has no odor. The patient reports a wound pain of level 5/10. The wound margin is irregular. Wound bed has Yes epithelialization, No eschar, Yes slough, Yes bright red, pink, firm granulation. The periwound skin texture is normal. The periwound skin exhibited: Atrophie Soledad, Hemosiderosis. The periwound skin did not exhibit: Dry/Scaly, Moist, Maceration , Cyanosis, Ecchymosis, Erythema, Pallor, Rubor. The temperature of the periwound skin is Warm. Periwound skin does not exhibit signs or symptoms of infection. Local Pulse is Palpable. Wound #34 Right, Medial Leg is a chronic Full Thickness Vasculitic Ulcer and has received a status of Not Healed. Subsequent wound encounter measurements are 6cm length x 4.5cm width x 0.1cm depth, with an area of 27 sq cm and a volume of 2.7 cubic cm. No tunneling has been noted. No sinus tract has been noted. No undermining has been noted. There is a moderate amount of sero-sanguineous drainage noted which has no odor. The patient reports a wound pain of level 5/10. The wound margin is unable to assess. Wound bed has No epithelialization, No eschar, Yes slough, Yes bright red, pink, firm granulation. The periwound skin texture is normal. The periwound skin moisture is normal. The periwound skin exhibited: Hemosiderosis. The periwound skin did not exhibit: Atrophie Sarah, Cyanosis, Ecchymosis, Erythema, Pallor, Rubor. The temperature of the periwound skin is Warm. Periwound skin does not exhibit signs or symptoms of infection. Local Pulse is Palpable. Wound #35 Right, Lateral Leg is a chronic Full Thickness Vasculitic Ulcer and has received a status of Not Healed. Subsequent wound encounter measurements are 8cm length x 7.5cm width x 0.1cm depth, with an area of 60 sq cm and a volume of 6 cubic cm. No tunneling has been noted. No sinus tract has been noted. No undermining has been noted. There is a moderate amount of sero-sanguineous drainage noted which has no odor. The patient reports a wound pain of level 5/10. The wound margin is irregular. Wound bed has Yes epithelialization, No eschar, Yes slough, Yes pink, firm granulation. The periwound skin texture is normal. The periwound skin moisture is normal. The periwound skin exhibited: Hemosiderosis. The periwound skin did not exhibit: Atrophie Sarah, Cyanosis, Ecchymosis, Erythema, Pallor, Rubor. The temperature of the periwound skin is Warm. Periwound skin does not exhibit signs or symptoms of infection. Local Pulse is Palpable. Wound #36 Right Foot is a chronic Full Thickness Vasculitic Ulcer and has received a status of Not Healed. Subsequent wound encounter measurements are 1.5cm length x 0.2cm width x 0.1cm depth, with an area of 0.3 sq cm and a volume of 0.03 cubic cm. No tunneling has been noted. No sinus tract has been noted. No undermining has been noted. There was no drainage noted. The patient reports a wound pain of level 5/10. The wound margin is unable to assess. Wound bed has No epithelialization, No eschar, Yes slough, No granulation. The periwound skin texture is normal. The periwound skin moisture is normal. The periwound skin color is normal. The temperature of the periwound skin is WNL. Periwound skin does not exhibit signs or symptoms of infection. Local Pulse is Palpable. General Notes: Satellite 1.3x0.3x0.1 Wound #37 Right, Posterior Leg is a chronic Partial Thickness Vasculitic Ulcer and has received a status of Not Healed. Initial wound encounter measurements are 1.2cm length x 0.6cm width with no measurable depth, with an area of 0.72 sq cm . No tunneling has been noted. No sinus tract has been noted. No undermining has been noted. There was no drainage noted. The patient reports a wound pain of level 0/10. The wound margin is attached. Wound bed has No epithelialization, No eschar, No slough, No granulation. The periwound skin texture is normal. The periwound skin moisture is normal. The periwound skin color is normal. The temperature of the periwound skin is WNL. Periwound skin does not exhibit signs or symptoms of infection. Local Pulse is Palpable. Psychiatric: Judgement and insight: Normal affect with normal thought pattern. Alert and oriented 3/3. Memory grossly intact.. Normal affect. Mood appropriate.. ASSESSMENT Active Problems ICD-10 (Encounter Diagnosis) L97.822 - Non-pressure chronic ulcer of other part of left lower leg with fat layer exposed (Encounter Diagnosis) L97.812 - Non-pressure chronic ulcer of other part of right lower leg with fat layer exposed (Encounter Diagnosis) L95.0 - Livedoid vasculitis (Encounter Diagnosis) R21 - Rash and other nonspecific skin eruption (Encounter Diagnosis) L97.512 - Non-pressure chronic ulcer of other part of right foot with fat layer exposed (Encounter Diagnosis) L97.522 - Non-pressure chronic ulcer of other part of left foot with fat layer exposed PROCEDURES Wound #31 Wound #31 (Vasculitic Ulcer) is located on the left, lateral leg and foot. A skin/subcutaneous tissue level surgical debridement with a total area debrided of 36 sq cm was performed by Pop Gallagher PA. Subcutaneous was removed along with devitalized tissue: exudate and slough. The following instrument(s) were used: curette. Pain control was achieved using 4% Lido. A time out was conducted prior to the start of the procedure. A minimal amount of bleeding was controlled with n/a. The procedure was tolerated well with a pain level of 0 throughout and a pain level of 0 following the procedure. Post Debridement Measurements: 8cm length x 4.5cm width x 0.2cm depth; with an area of 36 sq cm and a volume of 7.2 cubic cm; Wound #34 Wound #34 (Vasculitic Ulcer) is located on the right, medial leg. A skin/ subcutaneous tissue level surgical debridement with a total area debrided of 27 sq cm was performed by Pop Gallagher PA. Subcutaneous was removed along with devitalized tissue: exudate and slough. The following instrument(s) were used: curette. Pain control was achieved using 4% Lido. A time out was conducted prior to the start of the procedure. A minimal amount of bleeding was controlled with n/a. The procedure was tolerated well with a pain level of 0 throughout and a pain level of 0 following the procedure. Post Debridement Measurements: 6cm length x 4.5cm width x 0.2cm depth; with an area of 27 sq cm and a volume of 5.4 cubic cm; Wound #35 Wound #35 (Vasculitic Ulcer) is located on the right, lateral leg. A skin/ subcutaneous tissue level surgical debridement with a total area debrided of 30 sq cm was performed by Pop Gallagher PA. Subcutaneous was removed along with devitalized tissue: exudate and slough. The following instrument(s) were used: curette. Pain control was achieved using 4% Lido. A time out was not conducted prior to the start of the procedure. A minimal amount of bleeding was controlled with n/a. The procedure was tolerated well with a pain level of 0 throughout and a pain level of 0 following the procedure. Post Debridement Measurements: 8cm length x 7.5cm width x 0.2cm depth; with an area of 60 sq cm and a volume of 12 cubic cm; Wound #36 Wound #36 (Vasculitic Ulcer) is located on the right foot. A skin/subcutaneous tissue level surgical debridement with a total area debrided of 0.15 sq cm was performed by Pop Gallagher PA. Subcutaneous was removed along with devitalized tissue: exudate and slough. Pain control was achieved using 4% Lido. A time out was conducted prior to the start of the procedure. A minimal amount of bleeding was controlled with n/a. The procedure was tolerated well with a pain level of 0 throughout and a pain level of 0 following the procedure. Post Debridement Measurements: 1.5cm length x 0.2cm width x 0.2cm depth; with an area of 0.3 sq cm and a volume of 0.06 cubic cm; Additional Information Muscle fascia or bone removed and sent to pathology?: No Muscle fascia or bone removed and sent to pathology?: No Muscle fascia or bone removed and sent to pathology?: No Muscle fascia or bone removed and sent to pathology?: No PLAN Wound Orders: Wound #31 Left, Lateral Leg and Foot Anesthetic Topical Xylocaine to wound bed. - EMLA cream to all wounds. Cleanser Cleanse Wound: - Normal saline and gauze. May Shower. - Please cover with cast protector in shower. Cleanse wound with Soap and Water. - Leg washed with foaming cleanser and water at each visit. Topical Treatments Antibiotic/Antimicrobial Ointment/Cream. - Triple antibiotic ointment to wound bed, Triamcinolone cream to surrounding areas. Dressings Primary dressing: - Large telfa pads Cover and secure with: - conform and tape. Change Dressing: - Change every two days. Wound #32 Left, Medial Leg Anesthetic Topical Xylocaine to wound bed. - EMLA cream to all wounds. Cleanser Cleanse Wound: - Normal saline and gauze. May Shower. - Please cover with cast protector in shower. Cleanse wound with Soap and Water. - Leg washed with foaming cleanser and water at each visit. Topical Treatments Antibiotic/Antimicrobial Ointment/Cream. - Triple antibiotic ointment to wound bed, Triamcinolone cream to surrounding areas. Dressings Primary dressing: - Large telfa pads Cover and secure with: - conform and tape. Change Dressing: - Change every two days. Wound #34 Right, Medial Leg Anesthetic Topical Xylocaine to wound bed. - EMLA cream to all wounds. Cleanser Cleanse Wound: - Normal saline and gauze. May Shower. - Please cover with cast protector in shower. Cleanse wound with Soap and Water. - Leg washed with foaming cleanser and water at each visit. Topical Treatments Antibiotic/Antimicrobial Ointment/Cream. - Triple antibiotic ointment to wound bed, Triamcinolone cream to surrounding areas. Dressings Primary dressing: - Large telfa pads Cover and secure with: - conform and tape. Change Dressing: - Change every two days. Wound #35 Right, Lateral Leg Anesthetic Topical Xylocaine to wound bed. - EMLA cream to all wounds. Cleanser Cleanse Wound: - Normal saline and gauze. May Shower. - Please cover with cast protector in shower. Cleanse wound with Soap and Water. - Leg washed with foaming cleanser and water at each visit. Topical Treatments Antibiotic/Antimicrobial Ointment/Cream. - Triple antibiotic ointment to wound bed, Triamcinolone cream to surrounding areas. Dressings Primary dressing: - Large telfa pads Cover and secure with: - conform and tape. Change Dressing: - Change every two days. Wound #36 Right Foot Anesthetic Topical Xylocaine to wound bed. - EMLA cream to all wounds. Cleanser Cleanse Wound: - Normal saline and gauze. May Shower. - Please cover with cast protector in shower. Cleanse wound with Soap and Water. - Leg washed with foaming cleanser and water at each visit. Topical Treatments Antibiotic/Antimicrobial Ointment/Cream. - Triple antibiotic ointment to wound bed, Triamcinolone cream to surrounding areas. Dressings Primary dressing: - Large telfa pads Cover and secure with: - conform and tape. Change Dressing: - Change every two days. Additional Orders: Compression/Edema Control Single Layer Compression Hose - Tetra spindle setter E Follow-Up Appointments Return Appointment: - - One week Other information: If you develop fever, chills, increased pain, drainage, redness or swelling please call our office. If after hours, respond to the ER. Should you experience any significant changes in your wound(s) or have any questions regarding your home care instructions please contact the wound center @ [phone]. If after hours, contact your primary care physician or go to the hospital emergency room. Scribing Attestation I attest, as the nurse, that I scribed these orders for the physician. Medications prescribed: triamcinolone acetonide - topical 0.1 % 1 cream other starting 09/08/2017 I've reviewed the clinician's documentation and agree with the evaluation and plan as written. In addition the patient's ulcers demonstrate evidence of non-viable devitalized tissue which benefits from sharp debridement. We will use triamcinolone to help with the itching from the rash and will hopefully return to compression wrapping at his next visit. Electronic Signature(s) Signed By: Date: Reginaldo Gallagher 09/12/2017 12:48:23 Entered By: Reginaldo Gallagher on 09/12/2017 10:12:02
== END ==
PROVIDERS: PCP Internal Medicine; Visit Provider Physician Assistant
DX: L97.822 Non-pressure chronic ulcer of other part of left lower leg with fat layer exposed (principal); L97.812 Non-pressure chronic ulcer of other part of right lower leg with fat layer exposed; L97.512 Non-pressure chronic ulcer of other part of right foot with fat layer exposed; L97.522 Non-pressure chronic ulcer of other part of left foot with fat layer exposed; L95.0 Livedoid vasculitis; R21 Rash and other nonspecific skin eruption
CPT/HCPCS: 11042; 11045

== ENCOUNTER → 2017-09-15 10:13 | Outpatient (CLI) | payer MEDICARE, SELFPAY ==
--- NOTE | 2017-09-15 | OV.WND_ITS ---
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 Allergies adhesive tape (Reaction: blisters), Neosporin ([id number]) (Reaction: inflamed), neomycin (Reaction: inflammation), polymyxin B (Reaction: inflammation) HPI This information was obtained from the patient 09/15/17. Seen by Dr. Mora. The patient reports a new painful ulcer behind the right knee that's been present and draining for the past few days. He's been wearing compression stockings and treating the bilateral lower leg periulcer rash with triamcinolone ointment at dressing changes as recommended and feels the pain and drainage from the ulcers continues to improve since completing his course of Bactrim. He's not been able to afford his danazol which is treating the livedoid vasculopathy that's the etiology of the refractory non-pressure ulcers and he's also not had a recent follow up with Dr. Carmichael, dermatology at , whose been co-managing this condition. 09/08/17. Seen by Reginaldo Gallagher PA-C. The patient reports stable pain and drainage from his lower leg ulcers. He also reports a red pruritic rash on his lower legs that he believes is from the compression wraps and the recent warm weather. 09/01/17. Seen by Dr. Mora. The patient reports continued pain associated with the bilateral lower leg vasculitic nonpressure ulcers and he completed his course of Bactrim 2 days ago. 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 He's tolerated compression wraps which have been effective at treating acute flares and we used [employer] to cover the ulcers at the last visit presuming Xeroform was causing a contact dermatitis and considerable inflammation of the lower legs. 08/29/17. Seen by Dr. Mora. The patient reports continued pain associated with the bilateral lower leg cellulitis and associated vasculitic nonpressure ulcers and continues on Bactrim without reporting adverse side effects. He's also tolerating negative pressure wound therapy which has been effective in reversing the acute flares associated with his livedoid vasculopathy over the past few years. 08/22/17. Seen by Dr. Mora. 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 He's tolerating the compression wraps however without difficulty. 08/16/17. Seen by Dr. Mora. The patient reports improvement in terms of pain associated with the bilateral lower leg cellulitis and associated vasculitic nonpressure ulcers that are caused by underlying severe livedoid vasculopathy. His wound culture from the last visit grew two MSSA resistant species. He also tolerated compression therapy with the Coban compression wraps without difficulty. 08/11/17. Seen by Dr. Mora. The patient reports increased pain and drainage associated with the chronic bilateral lower leg vasculitic ulcers over the past few days and he has a low grade fever of 99F today. He's been off of Bactrim for 10 days and has had compression wraps on the legs for about 9 days prior to cutting them off yesterday. 08/02/17. Seen by Dr. Mora. The patient continues on Bactrim for cellulitis associated with the bilateral lower leg vasculitic ulcers and feels the pain is improving. He's also tolerated compression therapy without difficulty. 07/28/17. Seen by Dr. Mora. The patient returns to our clinic with an acute flare of his bilateral lower leg livedoid vasculopathy that he's state is very painful and has been draining considerably. He was seen in the walk-in clinic last Tuesday and started on Bactrim. He feels the pain in improving however it's still quite severe. He does not report fevers or feeling unwell otherwise and has been applying an OTC compression wrap to the legs. He also states he's on a work program for the [employer] department. 02/16/17. Seen by Dr. Mora. The patient does not report significant pain or increased drainage associated with bilateral lower leg nonpressure ulcers and he has completing his course of Bactrim that was treating the recent Klebsiella positive wound culture. 02/08/17. Seen by Reginaldo Gallagher PA-C. The patient reports decreased pain and drainage from his lower leg ulcers after taking bactrim for several days. 02/03/17. Seen by Dr. Mora. The patient reports increased pain associated with bilateral lower leg nonpressure ulcers despite taking Augmentin for the past week which is treating the recent Klebsiella positive wound culture. He also feels the compression wraps are contributing to the discomfort. 01/27/17. Seen by Dr. Mora. The patient reports improvement in his pain associated with the bilateral lower leg nonpressure ulcers since starting on Augmentin after his visit last week. He is amenable to compression therapy today that has been effective at treating his severe livedoid vasculopathy which is the source of his ulcers. 01/21/17. Seen by Dr. Mora. The patient continues on Augmentin for the bilateral lower leg nonpressure ulcers infections. He feels that the pain has improved modestly and does not report adverse side effects from antibiotics. He also does not wish to have compression wraps placed today which have been very effective in the past at treating the ulcers associated with livedoid vasculopathy. 01/14/17. Seen by Reginaldo Gallagher PA-C. The patient reports decreased pain and drainage from his right lateral lower leg and foot ulcers since starting his cipro. He reports that he should have several more doses but has lost his bottle. 01/11/17. Seen by Reginaldo Gallagher PA-C. The patient reports increased pain and drainage from his right lateral ulcer. He denies fever, chills or malaise. 01/07/17. Seen by Dr. Mora. The patient returns to clinic with recurrence of his bilateral lower extremity vasculitic ulcers. He carries a diagnosis of livedoid vasculopathy and was seen by recently with no changes to his management plan. He reports moderate pain with minimal drainage associated with the ulcers and has been applying compression wraps at home which is been the standard treatment. He does not report fevers or feeling unwell in general. 12/22/16. Seen by Reginaldo Gallagher PA-C. The patient reports he has restarted his 3 drug regimen for his livedoid vasculopathy after seeing Dr. Carmichael 2 days ago. He also reports increased pain and drainage from his right lower leg ulcer. 12/01/16. Seen by Reginaldo Gallagher PA-C. The patient reports no increase in drainage or pain from his chronic lower extremity ulcers. He again does not want multi-layer compression applied today due to forecast high temperatures. 11/25/16. Seen by Reginaldo Gallagher PA-C. The patient reports improvement in his pain and drainage from his lower extremity ulcers. He does not want to be wrapped this week due to discomfort with the wraps. 11/17/16. Seen by Reginaldo Gallagher PA-C. The patient reports that he now is taking danazol and aspirin to treat his livedoid vasculopathy, but is currently unable to get his prescribed trental, which is the 3rd drug in his 3 drug regimen that has been effective so far in treating his condition. 11/10/16. Seen by Reginaldo Gallagher PA-C. The patient reports persistent erythema and drainage from his left lower extremity ulcers which are known to be infected at this time. He has been able to procure his Bactrim DS and began taking it yesterday. In addition he has decided to resume taking danazol to treat his livedoid vasculopathy. 11/03/16. Seen by Reginaldo Gallagher PA-C. The patient reports he has been unable to afford his Bactrim DS prescription and has not yet picked it up. He grew S. Maltophilia and an coagulase negative staph. 10/27/16. Seen by Reginaldo Gallagher PA-C. The patient reports decreased drainage from his lower extremity ulcers and general improvement in all of the ulcers with the exception of an odor from the left ankle ulcers. 10/20/16. Seen by Reginaldo Gallagher PA-C. The patient reports missing a day of oral antibiotics but intends to continue the course. He has not procured his danazol as he is concerned about androgen-related side effects. 10/13/16. Seen by Reginaldo Gallagher PA-C. The patient reports that he now has medicare insurance coverage, though he has not yet attempted to use it to fill his prescription for danazol which treats his livedoid vasculopathy. He reports continued pain and drainage from his left foot ulcer and has been applying topical gentamicin but only procured the augmentin to treat it 1 day ago stating that I wasn't really going to be all that effective right? 10/06/16. Seen by Reginaldo Gallagher PA-C. The patient's recent wound culture has resulted with ESBL + E. Coli which is resistant to most oral antibiotics. Notably it is intermediately sensitive to Augmentin and it is sensitive to gentamicin. He reports improvement in the right foot and leg ulcers and continued pain and drainage from the left leg ulcers. 09/29/16. Seen by Reginaldo Gallagher PA-C. The patient reports significantly increased pain and drainage from his left medial ankle ulcer and decreased pain and drainage from his other ulcers. 09/16/16. Seen by Reginaldo Gallagher PA-C. The patient reports continued pain from her lower leg ulcers but the pain and drainage has decreased in recent days. He tolerates compression therapy and believes it is working though complains it is difficult to put up with during the hot weather we've had recently. 09/09/16. Seen by Dr. Mora. The patient report persistent but improving pain associated with the bilateral lower leg vasculitic non-pressure ulcers since his last visit. He' s tolerating compression therapy and does not report fevers or feeling unwell. 09/02/16. Seen by Reginaldo Gallagher PA-C. The patient reports continued pain and some decrease in drainage from his bilateral ulcers of both lower legs and feet. He has not been able to secure medical insurance and remains unable to afford one ot the medications that threats his livedoid vasculopathy. 08/26/16. Seen by Dr. Mora. The patient continues to report pain associated with the bilateral lower leg non-pressure ulcers but feels its improving since starting antibiotics and compression therapy 2 weeks ago. He does not report fevers or feeling unwell and has tolerated the wraps without difficulty. 08/20/16. Seen by Dr. Mora. The patient reports a modest improvement in terms of pain since starting compression wrap therapy for his chronic bilateral lower leg vasculitic nonpressure ulcers. He has been on Bactrim for the past few days however his wound culture shows resistance to this and he does not report fevers, feeling unwell, or adverse side effects from the Bactrim. His ulcers result from his chronic llivedoid vasculopathy that he' s experienced for many years. 08/17/16. Seen by Dr. Mora. The patient continues to report persistent pain associated with the bilateral lower leg vasculitic nonpressure ulcers. He's tolerating his compression wraps without difficulty and staff feel that the drainage continues to be quite significant. 08/11/16. Seen by Dr. Mora. The patient reports modest improvement in terms of his bilateral lower leg pain since we started compression wraps at the last visit and he was started on Augmentin. He is being treated for recurrent and chronic vasculitic ulcers associated with his bilateral lower leg livedoid vasculopathy. 08/06/16. Seen by Dr. Mora. The patient reports a significant increase in pain and drainage associated with the chronic and recurrent bilateral lower leg nonpressure ulcers. He has been on Flagyl for a recent polymicrobial anaerobic positive culture of the wounds. 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 He does not report fevers or feeling unwell except for significant lower leg pain at this time. 07/26/16. Seen by Reginaldo Gallagher PA-C. The patient reports he remains without insurance and consequently unable to afford his Danazol. He also did not hot die picker his refill of Flagyl for unspecified reasons. Ulcer drainage has been stable. 07/20/16. Seen by Reginaldo Gallagher PA-C. The patient reports that he has still not enrolled in Medicare and can not afford his Danazol for treatment of his livedoid vasculopathy. He was able to afford his levaquin and flagyl, which he has been taking for his polymicrobial ulcer infection. 07/12/16. Seen by Reginaldo Gallagher PA-C. The patient reports an increase in pain from his right and left foot livedoid vasculopathy ulcers. The pain is described as searing and burning and is constant but worsened by standing or anything touching the ulcers with his highest pain level reported at 10/10. He continues not to be enrolled in Medicare and still can not afford his Danazol which is used to treat his chronic condition. In addition he reports a fishy odor from the ulcers. 07/05/16. Seen by Reginaldo Gallagher PA-C. The patient reports that despite being eligible for Medicare due to disability, he has not filled out the appropriate paperwork and thus in uninsured at this time. Consequently he has been unable to afford his prescription for Danazol, which treats his livedoid vasculopathy. He reports continued pain and drainage from his right and left lower extremity ulcers. 06/23/16. Seen by Dr. Mora. The patient reports some increased swelling in both lower legs as well as significant pain associated with the right foot vasculitic ulcer. He does not report significant pain nor drainage associated with the other bilateral lower leg ulcers. 06/16/16. Seen by Dr. Mora. The patient reports modest improvement in terms of pain associated with bilateral lower leg non-pressure ulcers since his last visit and he continues on Augmentin and to apply topical gentamicin to the ulcers to treat the recent coag negative Staph cultures. He's also wearing compression stockings as recommended which are effective at minimizing the effect of his livedoid vasculopathy on ulcer formation and healing. 06/09/16. Seen by Dr. Mora. The patient reports persistent pain associated with the left medial lower leg non-pressure ulcers since last week and his recent wound culture grew two coag negative Staph species. He does not report significant pain or increased drainage associated with the other bilateral lower leg ulcers. Of note, he was without compression wraps for the past week which are treating chronic bilateral lower leg edema associated with his diagnosis of livedoid vasculopathy. He feels his legs may be more swollen than at his last visit. 06/02/16. Seen by Dr. Mora. The patient reports significant improvement in terms of pain associated with bilateral lower leg non-pressure ulcers since his last visit. We have been treating with compression wraps and he is now off of antibiotics. The culture taken last week from the left lower leg ulce grew 2 Staph species. 05/26/16. Seen by Dr. Mora. The patient continues to report improvements in terms of pain and drainage associated with bilateral lower leg nonpressure ulcers except for an ulcer over the left medial malleolus which he states is quite painful. He is now off of antibiotics and he feels that the compression wraps continue to be beneficial in terms of treating the chronic livedoid vasculopathy that is the source of his recurrent and very painful ulcers. 05/19/16. Seen by Dr. Mora. The patient continues to report improvements in terms of pain and drainage associated with bilateral lower leg nonpressure ulcers. He is now off of antibiotics and he feels that the compression wraps continue to be beneficial in terms of treating the chronic livedoid vasculopathy that is the source of his recurrent and very painful ulcers. 05/12/16. Seen by Dr. Mora. The patient continues to report improving pain and drainage associated with bilateral lower leg nonpressure ulcers. He continues on Augmentin without reported adverse side effects for chronic wound infection and has tolerated his compression wraps which are treating his chronic livedoid vasculopathy without reporting any problems. 05/06/16. Seen by Dr. Mora. The patient reports decreased pain and drainage associated with bilateral lower leg nonpressure ulcers. He continues on Augmentin without reporting adverse side effects for the chronic wound infections. He's also tolerated his compression wraps and feels that they are beneficial in terms of treating his chronic livedoid vasculopathy. 04/22/16. Seen by Dr. Mora. The patient feels there's been some modest improvement over the past week in the bilateral leg pain associated with the chronic bilateral non- pressure ulcers. He's on Augmentin without reporting adverse side effects for a wound infection and feels the compression wraps have been beneficial in treating the acute flare of livedoid vasculopathy which is the underlying pathology of his recurrent ulcers. 04/15/16. Seen by Dr. Mora. The patient reports significant pain and drainage associated with the bilateral lower leg non-pressure ulcers since his last visit and he's now on Augmentin for a polymicrobial wound infection. Of note, he suffers from livedoid vasculopathy with very painful flares resulting in severe, hypoxic ulceration that's responded well in the past to compression therapy and targeted antibiotics plus hyperbaric oxygen therapy which as been approved and provided off label. 01/01/16. Seen by Dr. Mora. The patient does not report pain or significant drainage associated with the left lower leg non-pressure ulcers since he started taking moxifloxacin 3 days ago. Of note, this was not prescribed recently and he states it was left over from a previous prescription written a few months ago. He has a long history of bilateral lower leg ulcers associated with livedoid vasculopathy and he feels compression therapy and targeted antibiotic therapy, along with HBOT, have been quite effective at managing acute flares. 10/31/15 Seen by Reginaldo Gallagher PA-C. The patient states that he has completed his course of moxifloxacin and his ulcers have improved remarkably with decreased pain and drainage. 10/13/15 Seen by Reginaldo Gallagher PA-C. The patient reports fevers and chills in the past few days. He also reports that he has not obtained, or started taking the bactrim that was prescribed due to some confusion with his prescription and the pharmacy. His ulcer culture has returned with strep spp. He reports continued pain and drainage form his ulcers. 09/30/15 Seen by Reginaldo Gallagher PA-C. The patient returns to our clinic with a recurrence and worsening of his livedoid vasculopathy ulcers of the right and left lower legs. He reports that they have been extremely painful in the past week which has prompted him to come to this appointment. The pain is described as searing and burning, non-radiating and up to 1010 exacerbated by the ulcers being touched. 03/06/[address] Mora. The patient reports only moderate discomfort associated with the right medial lower leg ulcer but otherwise no pain with the other lower leg ulcers. He also reports only minimal drainage from the ulcers and feels the daily compression wraps continue to be effective. 02/24/15 Seen by Reginaldo Gallagher PA-C. The patient notes improvement in pain and drainage from his ulcers. With this recent episode of lividoid vasculopathy it appears that there were no identifiable triggering events. The ulcers appeared to respond to culture- directed antibiotic therapy, debridement when tolerated, hyperbaric oxygen treatments and compression. It is unclear if nifedipine helped. His pain is now 1-2/10. 02/17/15 Seen by Reginaldo Gallagher PA-C. The patient continues to report more pain and drainage from his right lower leg ulcers than his left. He is concerned about new areas of ecchymosis that look like they're going to blow up again. He is not on nifedipine at this point as an adjunct treatment for his livedoid vasculopathy though he recalls that my feet and toes felt warmer when I was taking it. 02/06/[address] Mora. The patient does not report drainage from his chronic bilateral lower leg non-pressure ulcers and reports only minimal pain associated with the right lower leg medial ulcer. 01/30/[address] Mora. The patient reports less pain associated with the bilateral lower leg ulcers and feels the drainage continues to decrease since starting HBOT and compression wrap therapy. He continues on Bactrim for the MSSA positive wound culture and does not report adverse side effects. 01/16/[address] Mora. The patient states the pain associated with his right lower leg ulcers is still present but much improved since starting HBOT and utilizing compression wraps. He feels the drainage from all bilateral lower leg ulcers continues to decrease also an he continues on Bactrim for an MSSA positive wound culture from 01/04/15 and he does not report adverse side effects. 01/02/[address] Mora. The patient reports increasing pain and drainage associated with the left lower leg ulcers but he does not report fever. His left compression wrap has soaked through and he's not currently on antibiotics. 12/20/[address] Mora. The patient feels the bilateral lower leg pain associated with the chronic livedoid vasculopathy ulcers improved somewhat with compression therapy and he's also started taking low dose nifedipine for the condition but reports a headached since starting to take this. His wound culture of the right medial ulcer grew resistant coag negative Staph and he's currently not on antibiotics. The staff report minimal drainage on the left left and moderate from the right lower leg medial ulcer. Of note, he was also approved by his insurer for hyperbaric oxygen therapy as off label treatment for the recent severe flare of lower leg ulcerations as described in my previous note. 12/12/[address] Mora. The patient complains of increasing bilateral lower leg pain and feels there are new ulcers, particularly on the right medial lower leg, forming and draining. He's been applying Comprilan compression wraps at home which offer symptomatic relief and he's reported fevers over the weekend but also states he has some ear pain. He' s not currently on antibiotics and his wound culture from 11/27/14 showed no organisms. 11/27/14 Seen by Reginaldo Gallagher PA-C. The patient continues to have persistent and severe pain in his leg wounds with the left leg worse than the right. He has noted multiple new areas of purpuric rash and new small ulcers forming on both lower legs. These symptoms are consistent with previous flares of his lividoid vasculopathy. His most recent flare of this condition, one year ago, his ulcers progressed to the point of exposed tendon and muscle and required hyperbaric oxygen treatment to reverse the progression of disease. He has been taking levaquin for Enterobacter Cloacae which was cultured from his wound and has noted no improvement since starting the levaquin. 11/20/[address] Mora. The patient reports persistent pain in both the left and right lower legs and feels the ulcers over both legs are deteriorating a bit despite being on doxycycline. The ulcers continue to drain and he's been gently wrapping the legs with an ALEJANDRO bandage as he feels this has relieved the discomfort in the past. He does not report fever or chills. 11/11/[address] Mora. The patient feels his left leg pain and swelling have improved since starting doxycycyline at the last visit for a Klebsiella, Enterococcus, coag neg Staph wound culture from 11/01/14. 11/04/[address] Mora. The patient reports increased pain and swelling in the left lower leg with subjective fevers over the past few days. He does not report increased drainage from his ulcers however. His left lower leg ulcer wound culture returned Klebsiella, Enterobacter, and coag negative Staph on 11/03/14. He also feels that the previously described lesions over the anterior left lower leg have now deteriorated into new ulcers. 10/18/[address] Mora. The patient continues to complains of moderate to severe intermittent pain at the site of the left lower leg proximal ulcer however he reports only minimal drainage from his ulcers and is changing dressings about every 3 days. He's been off of antibiotics for the past week. 10/10/[address] Mora. The patient continues to report pain associated with the left lower leg ulcer that's especially noticeable when the leg swells. He reports continued drainage from both this site and the left medial malleolar ulcer and he's completed his course of clindamycin. 09/30/14 Seen by Reginaldo Gallagher PA-C. The patient reports that his wounds are less painful today and are draining a little less as well. 09/17/14 Seen by Reginaldo Gallagher PA-C. The patient reports increased pain in his wounds without increased drainage. Pain is increased when the wounds are touched and is severe and non-radiation. Described as a burning/stabbing pain. He is currently on Bactrim DS. 09/05/14 Seen by Reginaldo Gallagher PA-C. The patient reports he has not purchased Hibiclens soap yet but has been trying to keep the wounds clean. 08/29/14 Seen by Reginaldo Gallagher PA-C. The patient complains of increased pain from his wounds. Drainage is stable. He notes that he scrubs his wounds with soap and tap water on a frequent basis. He is not currently on antibiotics. 08/13/[address] Mora. The patient is now off Bactrim that was given for an ESBL E. coli positive wound culture of the left lower leg ulcer. He feels the pain, swelling , and drainage associated with the ulcers is now minimal but the lesion on the dorsum of the foot is now open. 08/01/[address] Mora. The patient feels the pain and drainage associated with the left lower leg ulcers as well as the swelling in the lower leg has improved since changing to Bactrim from clindamycin. 07/26/[address] Mora. The patient complains of increased pain over the anterior left lower leg and is concerned about possible new ulcers that may be developing in the area. He continues on clindamycin and does not report increased drainage from either of the two existing left lower leg ulcers. 07/18/14 The patient reports minimal drainage and pain associated with his two remaining left lower leg ulcers. He's been taking clindamycin however only twice daily instead of three times daily as prescribed. 07/11/14 The patient feels the pain and drainage from the remaining left lower leg ulcers has improved considerably over the past week however the anterior proximal ulcer is still quite tender. 07/03/14 The patient reports no fever or chills and no complications from his antibiotics or HBOT. 07/01/14 The patient's wound culture grew resistant coag negative Staph and he reports little improvement in the left lower leg ulcer pain and drainage over the past week. He also feels the swelling in the leg has not improved. He does not report fever, chills, or sweats. 06/26/14 The patient feels his left lower leg ulcers are draining less as the alginate he's been using seems to be dry. He continues on Bactrim and although the ulcers continue to be painful they're subjectively improving in terms of pain, leg swelling, and erythema. He' s also continued with HBOT and states he noticed his left leg was quite uncomfortable during the ascent yesterday. He complains of a headache today but no fever, chills, or other constitutional symptoms. 06/17/14 The patient reported a red rash of unknown significance, located on his back yesterday to the home infusion nurse. This rash appeared after his second infusion of ertapenem and the patient reports it was short lived, resolved spontaneously and was somewhat itchy. Yesterday the patient initially agreed to a TID regimen of a cephamycin antibiotic that his ESBL ecoli bacteria was sensitive to. He then became angry and agitated at the infusion center when he presented for his test dose. He left without receiving his infusion. Furthermore, today he reports blisters at the site of his PICC dressing and there is dried blood under the dressing. We discussed his chart-reported sulfa allergy, as his organism is sensitive to Bactrim. He reports this allergy was recorded on his chart after he had a red, linear, non- puritic rash on his abdomen while taking a sulfa antibiotic. He reports he finished several more days of the antibiotic and the rash resolved. He does not believe he has ever had an anaphylactic reaction once it's signs and symptoms were described. 06/10/14 The patient reports a significant increase in pain and drainage at the site of the left lower leg ulcers over the past week. He also reports swelling in the leg. 06/03/14 The patient reports that he hated the SNAP dressing and does not want it reapplied. He reports that the canister bothered him to the point of not being able to sleep, and the drainage from the non-included area of the SNAP caused maceration. 05/16/14 The patient feels the drainage from his left lower leg ulcer has decreased since treating his pansensitive coag negative Staph culture from the site with doxycycline after the last visit. This pain has also improved. He states he still required daily dressing changes however. 05/09/14 The patient still complains of pain at the left lower leg medial ulcer and states he needs to change the dressing daily. Otherwise he feels the lateral ulcer is nearly healed. 04/17/14 The patient reports increased inflammation, pain, and itching at the left medial ulcer site. He continues to have moderate drainage there requiring daily dressing changes. His wound culture from the lateral left foot ulcer on 04/02/14 grew coag negative Staph without sensitivities reported. He does not report fever or chills. 04/11/14 The patient reports decreased pain from his wounds and no drainage from his right lateral lower leg wound. He does not report fever or chills. 04/02/14 The patient reports increased pain in the left lower leg ulcers and has been of doxycycline for the past week. This was started based on his coag neg Staph wound culture from [facility]. He also reports subjective fevers and feeling generally unwell for the past few days. 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; complication of HBOT; s/p bilateral tympanoplasty) Complaints and Symptoms This information was obtained from the patient Patient complains of: General Notes: I have reviewed and concur with the Review of Systems and Past Family Social History documents completed by the clinician, I have reviewed and concur with the Wound Assessment document completed by the clinician Allergic/Immunologic: Frequent Rashes Cardiovascular (Central/Peripheral): Lower extremity (leg) swelling Hematologic/Lymphatic: Bleeding / Clotting Disorders Integumentary (Hair/Skin/Nails): Lesions, Open Sore Prior Wound History: Bleeding, Drainage, Erythema, Malodor, Pain Patient denies complaints or symptoms related to: Cardiovascular (Central/Peripheral): Lower extremity (leg) resting pain Constitutional Symptoms (General Health): Chills, Fever, Marked Weight Change Ear/Nose/Mouth/Throat: Hearing Loss / Aid Eyes: Partial/Complete Blindness Gastrointestinal (GI): Nausea / Vomiting Hematologic/Lymphatic: Bleeding Tendency Musculoskeletal: Assistive Devices, Muscle Weakness Neurological: Loss of Protective Sensation Psychiatric: Memory Loss Respiratory: Oxygen Use, Shortness of Breath OBJECTIVE Constitutional Vital signs reviewed and noted. Well developed. Alert. Clean appearing.. Height/ Length: 73 in (185.42 cm), Weight: 190.2 lbs (86.45 kgs), BMI: 25.1, Temperature: 98.3 ?F ( 36.83 ?C), Pulse: 87 bpm, Respiratory Rate: 18 breaths/min, Blood Pressure: 134/88 mmHg, Pulse Oximetry: 99 %. Ears, Nose, Mouth, and Throat: No clinically significant hearing loss on informal examination. Respiratory: No respiratory distress. Even respirations and without use of accessory muscles.. Cardiovascular: 1+ bilateral lower leg edema. Gastrointestinal (GI): Non-obese. Nondistended.. Integumentary (Hair, Skin) Hemosiderin staining noted over bilateral lower legs. Refer to appropriate clinician wound documentation for this visit; right and left lower leg ulcers extend to subcut with bases partially covered with pink granulation, remainder fibrin and slough; improved from previous review 2 weeks ago; new painful lesion with surrounding erythema and tenderness behind right knee. Wound #31 Left, Lateral Leg and Foot is a chronic Full Thickness Vasculitic Ulcer and has received a status of Not Healed. Subsequent wound encounter measurements are 6cm length x 5cm width x 0.1cm depth, with an area of 30 sq cm and a volume of 3 cubic cm. No tunneling has been noted. No sinus tract has been noted. No undermining has been noted. There is a moderate amount of sero-sanguineous drainage noted which has no odor. The patient reports a wound pain of level 5/10. The wound margin is irregular. Wound bed has Yes epithelialization, No eschar, Yes slough, No granulation. The periwound skin texture is normal. The periwound skin moisture is normal. The periwound skin exhibited: Erythema, Hemosiderosis. The periwound skin did not exhibit: Atrophie Ethridge, Cyanosis, Ecchymosis, Pallor, Rubor. The temperature of the periwound skin is Warm. Periwound skin does not exhibit signs or symptoms of infection. Local Pulse is Palpable. Wound #32 Left, Medial Leg is a chronic Full Thickness Vasculitic Ulcer and has received a status of Not Healed. Subsequent wound encounter measurements are 1cm length x 1cm width x 0.2cm depth, with an area of 1 sq cm and a volume of 0.2 cubic cm. No tunneling has been noted. No sinus tract has been noted. No undermining has been noted. There is a moderate amount of sero-sanguineous drainage noted which has no odor. The patient reports a wound pain of level 5/10. The wound margin is irregular. Wound bed has Yes epithelialization, No eschar, Yes slough, No granulation. The periwound skin texture is normal. The periwound skin exhibited: Dry/Scaly, Atrophie Sarah, Hemosiderosis. The periwound skin did not exhibit: Moist, Maceration, Cyanosis, Ecchymosis, Erythema, Pallor, Rubor. The temperature of the periwound skin is Warm. Periwound skin does not exhibit signs or symptoms of infection. Local Pulse is Palpable. Wound #34 Right, Medial Leg is a chronic Full Thickness Vasculitic Ulcer and has received a status of Not Healed. Subsequent wound encounter measurements are 0.3cm length x 0.3cm width x 0.2cm depth, with an area of 0.09 sq cm and a volume of 0.018 cubic cm. No tunneling has been noted. No sinus tract has been noted. No undermining has been noted. There is a scant amount of sero-sanguineous drainage noted which has no odor. The patient reports a wound pain of level 5/10. The wound margin is unable to assess. Wound bed has No epithelialization, No eschar, Yes slough, No granulation. The periwound skin texture is normal. The periwound skin moisture is normal. The periwound skin exhibited: Hemosiderosis. The periwound skin did not exhibit: Atrophie Ethridge, Cyanosis, Ecchymosis, Erythema, Pallor, Rubor. The temperature of the periwound skin is Warm. Periwound skin does not exhibit signs or symptoms of infection. Local Pulse is Palpable. Wound #35 Right, Lateral Leg is a chronic Full Thickness Vasculitic Ulcer and has received a status of Not Healed. Subsequent wound encounter measurements are 0.1cm length x 0.2cm width x 0.1cm depth, with an area of 0.02 sq cm and a volume of 0.002 cubic cm. No tunneling has been noted. No sinus tract has been noted. No undermining has been noted. There is a scant amount of sero-sanguineous drainage noted which has no odor. The patient reports a wound pain of level 5/10. The wound margin is irregular. Wound bed has Yes epithelialization, No eschar, Yes slough, No granulation. The periwound skin texture is normal. The periwound skin moisture is normal. The periwound skin exhibited: Hemosiderosis. The periwound skin did not exhibit: Atrophie Sarah, Cyanosis, Ecchymosis, Erythema, Pallor, Rubor. The temperature of the periwound skin is Warm. Periwound skin does not exhibit signs or symptoms of infection. Local Pulse is Palpable. Wound #36 Right Foot is a chronic Full Thickness Vasculitic Ulcer and has received a status of Not Healed. Subsequent wound encounter measurements are 1.4cm length x 0.4cm width x 0.3cm depth, with an area of 0.56 sq cm and a volume of 0.168 cubic cm. No tunneling has been noted. No sinus tract has been noted. No undermining has been noted. There is a small amount of sero-sanguineous drainage noted which has no odor. The patient reports a wound pain of level 5/10. The wound margin is unable to assess. Wound bed has No epithelialization, No eschar, Yes slough, No granulation. The periwound skin texture is normal. The periwound skin moisture is normal. The periwound skin color is normal. The temperature of the periwound skin is WNL. Periwound skin does not exhibit signs or symptoms of infection. Local Pulse is Palpable. Wound #37 Right, Posterior Leg is a chronic Partial Thickness Vasculitic Ulcer and has received a status of Not Healed. Subsequent wound encounter measurements are 0.5cm length x 0.4cm width x 0.3cm depth, with an area of 0.2 sq cm and a volume of 0.06 cubic cm. No tunneling has been noted. No sinus tract has been noted. No undermining has been noted. There is a scant amount of sero-sanguineous drainage noted which has no odor. The patient reports a wound pain of level 7/10. The wound margin is attached. Wound bed has No epithelialization, No eschar, Yes slough, No granulation. The periwound skin texture is normal. The periwound skin moisture is normal. The periwound skin color is normal. The temperature of the periwound skin is WNL. Periwound skin presents with s/s of infection. Confirmation Description and Treatment Plan is: Signs and Symptoms Present. Local Pulse is Palpable. Neurological: Cranial nerves grossly intact with symmetric function normal by informal observation.. ASSESSMENT Active Problems ICD-10 (Encounter Diagnosis) L97.822 - Non-pressure chronic ulcer of other part of left lower leg with fat layer exposed (Encounter Diagnosis) L97.812 - Non-pressure chronic ulcer of other part of right lower leg with fat layer exposed (Encounter Diagnosis) L95.0 - Livedoid vasculitis (Encounter Diagnosis) R21 - Rash and other nonspecific skin eruption (Encounter Diagnosis) L97.512 - Non-pressure chronic ulcer of other part of right foot with fat layer exposed (Encounter Diagnosis) L97.522 - Non-pressure chronic ulcer of other part of left foot with fat layer exposed (Encounter Diagnosis) L08.9 - Local infection of the skin and subcutaneous tissue, unspecified PLAN Wound Orders: Wound #31 Left, Lateral Leg and Foot Anesthetic Topical Xylocaine to wound bed. - EMLA cream to all wounds. Cleanser Cleanse Wound: - Normal saline and gauze. May Shower. - Please cover with cast protector in shower. Cleanse wound with Soap and Water. - Leg washed with foaming cleanser and water at each visit. Topical Treatments Antibiotic/Antimicrobial Ointment/Cream. - Triamcinolone cream to surrounding areas. Dressings Primary dressing: - Large telfa pads Cover and secure with: - conform and tape. Change Dressing: - Change every two days. Wound #32 Left, Medial Leg Anesthetic Topical Xylocaine to wound bed. - EMLA cream to all wounds. Cleanser Cleanse Wound: - Normal saline and gauze. May Shower. - Please cover with cast protector in shower. Cleanse wound with Soap and Water. - Leg washed with foaming cleanser and water at each visit. Topical Treatments Antibiotic/Antimicrobial Ointment/Cream. - Triamcinolone cream to surrounding areas. Dressings Primary dressing: - Large telfa pads Cover and secure with: - conform and tape. Change Dressing: - Change every two days. Wound #34 Right, Medial Leg Anesthetic Topical Xylocaine to wound bed. - EMLA cream to all wounds. Cleanser Cleanse Wound: - Normal saline and gauze. May Shower. - Please cover with cast protector in shower. Cleanse wound with Soap and Water. - Leg washed with foaming cleanser and water at each visit. Topical Treatments Antibiotic/Antimicrobial Ointment/Cream. - Triamcinolone cream to surrounding areas. Dressings Primary dressing: - Large telfa pads Cover and secure with: - conform and tape. Change Dressing: - Change every two days. Wound #35 Right, Lateral Leg Anesthetic Topical Xylocaine to wound bed. - EMLA cream to all wounds. Cleanser Cleanse Wound: - Normal saline and gauze. May Shower. - Please cover with cast protector in shower. Cleanse wound with Soap and Water. - Leg washed with foaming cleanser and water at each visit. Topical Treatments Antibiotic/Antimicrobial Ointment/Cream. - Triamcinolone cream to surrounding areas. Dressings Primary dressing: - Large telfa pads Cover and secure with: - conform and tape. Change Dressing: - Change every two days. Wound #36 Right Foot Anesthetic Topical Xylocaine to wound bed. - EMLA cream to all wounds. Cleanser Cleanse Wound: - Normal saline and gauze. May Shower. - Please cover with cast protector in shower. Cleanse wound with Soap and Water. - Leg washed with foaming cleanser and water at each visit. Topical Treatments Antibiotic/Antimicrobial Ointment/Cream. - Triamcinolone cream to surrounding areas. Dressings Primary dressing: - Large telfa pads Cover and secure with: - conform and tape. Change Dressing: - Change every two days. 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 If after hours, respond to the ER. Should you experience any significant changes in your wound(s) or have any questions regarding your home care instructions please contact the wound center @ [phone]. If after hours, contact your primary care physician or go to the hospital emergency room. Scribing Attestation I attest, as the nurse, that I scribed these orders for the physician. I've reviewed the clinician's documentation and agree with the evaluation and plan as written. Also, I've cultured the new right lower leg lesion and he'll begin treating the infection with topical gentamicin. I've also encouraged him to contact Dr. Carmichael's office to schedule a follow up appointment and to also discuss if there are any new therapies available that may be effective at treating livedoid vasculopathy. Electronic Signature(s) Signed By: Date: Noah Mora MD 09/16/2017 08:43:48 Entered By: Noah Mora on 09/15/2017 12:17:54
== END ==
PROVIDERS: PCP Internal Medicine; Visit Provider Internal Medicine
DX: L97.822 Non-pressure chronic ulcer of other part of left lower leg with fat layer exposed (principal); L97.812 Non-pressure chronic ulcer of other part of right lower leg with fat layer exposed; L95.0 Livedoid vasculitis; R21 Rash and other nonspecific skin eruption; L97.512 Non-pressure chronic ulcer of other part of right foot with fat layer exposed; L97.522 Non-pressure chronic ulcer of other part of left foot with fat layer exposed; L08.9 Local infection of the skin and subcutaneous tissue, unspecified; L98.492 Non-pressure chronic ulcer of skin of other sites with fat layer exposed
CPT/HCPCS: 87070; 87075; 87077; 87147; 87186; 87205; 99215

== ENCOUNTER → 2017-12-13 14:06 | Outpatient (CLI) | payer MEDICARE, SELFPAY ==
--- NOTE | 2017-12-13 | OV.WND_ITS ---
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 Allergies adhesive tape (Reaction: blisters), Neosporin ([id number]) (Reaction: inflamed), neomycin (Reaction: inflammation), polymyxin B (Reaction: inflammation) HPI This information was obtained from the patient 12/13/17. Seen by Dr. Mora. 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 This recurrence if relatively minor compared to previous and he reports only modest pain associated with a left dorsal foot ulcer and only minimal drainage. These have responded well in the past to compression therapy with either stockings or wraps and targeted antibiotic therapy. 09/15/17. Seen by Dr. Mora. The patient reports a new painful ulcer behind the right knee that's been present and draining for the past few days. He's been wearing compression stockings and treating the bilateral lower leg periulcer rash with triamcinolone ointment at dressing changes as recommended and feels the pain and drainage from the ulcers continues to improve since completing his course of Bactrim. He's not been able to afford his danazol which is treating the livedoid vasculopathy that's the etiology of the refractory non-pressure ulcers and he's also not had a recent follow up with Dr. Carmichael, dermatology at , whose been co-managing this condition. 09/08/17. Seen by Reginaldo Gallagher PA-C. The patient reports stable pain and drainage from his lower leg ulcers. He also reports a red pruritic rash on his lower legs that he believes is from the compression wraps and the recent warm weather. 09/01/17. Seen by Dr. Mroa. The patient reports continued pain associated with the bilateral lower leg vasculitic nonpressure ulcers and he completed his course of Bactrim 2 days ago. 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 He's tolerated compression wraps which have been effective at treating acute flares and we used [employer] to cover the ulcers at the last visit presuming Xeroform was causing a contact dermatitis and considerable inflammation of the lower legs. 08/29/17. Seen by Dr. Mora. The patient reports continued pain associated with the bilateral lower leg cellulitis and associated vasculitic nonpressure ulcers and continues on Bactrim without reporting adverse side effects. He's also tolerating negative pressure wound therapy which has been effective in reversing the acute flares associated with his livedoid vasculopathy over the past few years. 08/22/17. Seen by Dr. Mora. 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 He's tolerating the compression wraps however without difficulty. 08/16/17. Seen by Dr. Mora. The patient reports improvement in terms of pain associated with the bilateral lower leg cellulitis and associated vasculitic nonpressure ulcers that are caused by underlying severe livedoid vasculopathy. His wound culture from the last visit grew two MSSA resistant species. He also tolerated compression therapy with the Coban compression wraps without difficulty. 08/11/17. Seen by Dr. Mora. The patient reports increased pain and drainage associated with the chronic bilateral lower leg vasculitic ulcers over the past few days and he has a low grade fever of 99F today. He's been off of Bactrim for 10 days and has had compression wraps on the legs for about 9 days prior to cutting them off yesterday. 08/02/17. Seen by Dr. Mora. The patient continues on Bactrim for cellulitis associated with the bilateral lower leg vasculitic ulcers and feels the pain is improving. He's also tolerated compression therapy without difficulty. 07/28/17. Seen by Dr. Mora. The patient returns to our clinic with an acute flare of his bilateral lower leg livedoid vasculopathy that he's state is very painful and has been draining considerably. He was seen in the walk-in clinic last Tuesday and started on Bactrim. He feels the pain in improving however it's still quite severe. He does not report fevers or feeling unwell otherwise and has been applying an OTC compression wrap to the legs. He also states he's on a work program for the [employer]. 02/16/17. Seen by Dr. Mora. The patient does not report significant pain or increased drainage associated with bilateral lower leg nonpressure ulcers and he has completing his course of Bactrim that was treating the recent Klebsiella positive wound culture. 02/08/17. Seen by Reginaldo Gallagher PA-C. The patient reports decreased pain and drainage from his lower leg ulcers after taking bactrim for several days. 02/03/17. Seen by Dr. Mora. The patient reports increased pain associated with bilateral lower leg nonpressure ulcers despite taking Augmentin for the past week which is treating the recent Klebsiella positive wound culture. He also feels the compression wraps are contributing to the discomfort. 01/27/17. Seen by Dr. Mora. The patient reports improvement in his pain associated with the bilateral lower leg nonpressure ulcers since starting on Augmentin after his visit last week. He is amenable to compression therapy today that has been effective at treating his severe livedoid vasculopathy which is the source of his ulcers. 01/21/17. Seen by Dr. Mora. The patient continues on Augmentin for the bilateral lower leg nonpressure ulcers infections. He feels that the pain has improved modestly and does not report adverse side effects from antibiotics. He also does not wish to have compression wraps placed today which have been very effective in the past at treating the ulcers associated with livedoid vasculopathy. 01/14/17. Seen by Reginaldo Gallagher PA-C. The patient reports decreased pain and drainage from his right lateral lower leg and foot ulcers since starting his cipro. He reports that he should have several more doses but has lost his bottle. 01/11/17. Seen by Reginaldo Gallagher PA-C. The patient reports increased pain and drainage from his right lateral ulcer. He denies fever, chills or malaise. 01/07/17. Seen by Dr. Mora. The patient returns to clinic with recurrence of his bilateral lower extremity vasculitic ulcers. He carries a diagnosis of livedoid vasculopathy and was seen by recently with no changes to his management plan. He reports moderate pain with minimal drainage associated with the ulcers and has been applying compression wraps at home which is been the standard treatment. He does not report fevers or feeling unwell in general. 12/22/16. Seen by Reginaldo Gallagher PA-C. The patient reports he has restarted his 3 drug regimen for his livedoid vasculopathy after seeing Dr. Carmichael 2 days ago. He also reports increased pain and drainage from his right lower leg ulcer. 12/01/16. Seen by Reginaldo Gallagher PA-C. The patient reports no increase in drainage or pain from his chronic lower extremity ulcers. He again does not want multi-layer compression applied today due to forecast high temperatures. 11/25/16. Seen by Reginaldo Gallagher PA-C. The patient reports improvement in his pain and drainage from his lower extremity ulcers. He does not want to be wrapped this week due to discomfort with the wraps. 11/17/16. Seen by Reginaldo Gallagher PA-C. The patient reports that he now is taking danazol and aspirin to treat his livedoid vasculopathy, but is currently unable to get his prescribed trental, which is the 3rd drug in his 3 drug regimen that has been effective so far in treating his condition. 11/10/16. Seen by Reginaldo Gallagher PA-C. The patient reports persistent erythema and drainage from his left lower extremity ulcers which are known to be infected at this time. He has been able to procure his Bactrim DS and began taking it yesterday. In addition he has decided to resume taking danazol to treat his livedoid vasculopathy. 11/03/16. Seen by Reginaldo Gallagher PA-C. The patient reports he has been unable to afford his Bactrim DS prescription and has not yet picked it up. He grew S. Maltophilia and an coagulase negative staph. 10/27/16. Seen by Reginaldo Gallagher PA-C. The patient reports decreased drainage from his lower extremity ulcers and general improvement in all of the ulcers with the exception of an odor from the left ankle ulcers. 10/20/16. Seen by Reginaldo Gallagher PA-C. The patient reports missing a day of oral antibiotics but intends to continue the course. He has not procured his danazol as he is concerned about androgen-related side effects. 10/13/16. Seen by Reginaldo Gallagher PA-C. The patient reports that he now has medicare insurance coverage, though he has not yet attempted to use it to fill his prescription for danazol which treats his livedoid vasculopathy. He reports continued pain and drainage from his left foot ulcer and has been applying topical gentamicin but only procured the augmentin to treat it 1 day ago stating that I wasn't really going to be all that effective right? 10/06/16. Seen by Reginaldo Gallagher PA-C. The patient's recent wound culture has resulted with ESBL + E. Coli which is resistant to most oral antibiotics. Notably it is intermediately sensitive to Augmentin and it is sensitive to gentamicin. He reports improvement in the right foot and leg ulcers and continued pain and drainage from the left leg ulcers. 09/29/16. Seen by Reginaldo Gallagher PA-C. The patient reports significantly increased pain and drainage from his left medial ankle ulcer and decreased pain and drainage from his other ulcers. 09/16/16. Seen by Reginaldo Gallagher PA-C. The patient reports continued pain from her lower leg ulcers but the pain and drainage has decreased in recent days. He tolerates compression therapy and believes it is working though complains it is difficult to put up with during the hot weather we've had recently. 09/09/16. Seen by Dr. Mora. The patient report persistent but improving pain associated with the bilateral lower leg vasculitic non-pressure ulcers since his last visit. He' s tolerating compression therapy and does not report fevers or feeling unwell. 09/02/16. Seen by Reginaldo Gallagher PA-C. The patient reports continued pain and some decrease in drainage from his bilateral ulcers of both lower legs and feet. He has not been able to secure medical insurance and remains unable to afford one ot the medications that threats his livedoid vasculopathy. 08/26/16. Seen by Dr. Mora. The patient continues to report pain associated with the bilateral lower leg non-pressure ulcers but feels its improving since starting antibiotics and compression therapy 2 weeks ago. He does not report fevers or feeling unwell and has tolerated the wraps without difficulty. 08/20/16. Seen by Dr. Mora. The patient reports a modest improvement in terms of pain since starting compression wrap therapy for his chronic bilateral lower leg vasculitic nonpressure ulcers. He has been on Bactrim for the past few days however his wound culture shows resistance to this and he does not report fevers, feeling unwell, or adverse side effects from the Bactrim. His ulcers result from his chronic llivedoid vasculopathy that he' s experienced for many years. 08/17/16. Seen by Dr. Mora. The patient continues to report persistent pain associated with the bilateral lower leg vasculitic nonpressure ulcers. He's tolerating his compression wraps without difficulty and staff feel that the drainage continues to be quite significant. 08/11/16. Seen by Dr. Mora. The patient reports modest improvement in terms of his bilateral lower leg pain since we started compression wraps at the last visit and he was started on Augmentin. He is being treated for recurrent and chronic vasculitic ulcers associated with his bilateral lower leg livedoid vasculopathy. 08/06/16. Seen by Dr. Mora. The patient reports a significant increase in pain and drainage associated with the chronic and recurrent bilateral lower leg nonpressure ulcers. He has been on Flagyl for a recent polymicrobial anaerobic positive culture of the wounds. 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 He does not report fevers or feeling unwell except for significant lower leg pain at this time. 07/26/16. Seen by Reginaldo Gallagher PA-C. The patient reports he remains without insurance and consequently unable to afford his Danazol. He also did not pickle cutter his refill of Flagyl for unspecified reasons. Ulcer drainage has been stable. 07/20/16. Seen by Reginaldo Gallagher PA-C. The patient reports that he has still not enrolled in Medicare and can not afford his Danazol for treatment of his livedoid vasculopathy. He was able to afford his levaquin and flagyl, which he has been taking for his polymicrobial ulcer infection. 07/12/16. Seen by Reginaldo Gallagher PA-C. The patient reports an increase in pain from his right and left foot livedoid vasculopathy ulcers. The pain is described as searing and burning and is constant but worsened by standing or anything touching the ulcers with his highest pain level reported at 10/10. He continues not to be enrolled in Medicare and still can not afford his Danazol which is used to treat his chronic condition. In addition he reports a fishy odor from the ulcers. 07/05/16. Seen by Reginaldo Gallagher PA-C. The patient reports that despite being eligible for Medicare due to disability, he has not filled out the appropriate paperwork and thus in uninsured at this time. Consequently he has been unable to afford his prescription for Danazol, which treats his livedoid vasculopathy. He reports continued pain and drainage from his right and left lower extremity ulcers. 06/23/16. Seen by Dr. Mora. The patient reports some increased swelling in both lower legs as well as significant pain associated with the right foot vasculitic ulcer. He does not report significant pain nor drainage associated with the other bilateral lower leg ulcers. 06/16/16. Seen by Dr. Mora. The patient reports modest improvement in terms of pain associated with bilateral lower leg non-pressure ulcers since his last visit and he continues on Augmentin and to apply topical gentamicin to the ulcers to treat the recent coag negative Staph cultures. He's also wearing compression stockings as recommended which are effective at minimizing the effect of his livedoid vasculopathy on ulcer formation and healing. 06/09/16. Seen by Dr. Mora. The patient reports persistent pain associated with the left medial lower leg non-pressure ulcers since last week and his recent wound culture grew two coag negative Staph species. He does not report significant pain or increased drainage associated with the other bilateral lower leg ulcers. Of note, he was without compression wraps for the past week which are treating chronic bilateral lower leg edema associated with his diagnosis of livedoid vasculopathy. He feels his legs may be more swollen than at his last visit. 06/02/16. Seen by Dr. Mora. The patient reports significant improvement in terms of pain associated with bilateral lower leg non-pressure ulcers since his last visit. We have been treating with compression wraps and he is now off of antibiotics. The culture taken last week from the left lower leg ulce grew 2 Staph species. 05/26/16. Seen by Dr. Mora. The patient continues to report improvements in terms of pain and drainage associated with bilateral lower leg nonpressure ulcers except for an ulcer over the left medial malleolus which he states is quite painful. He is now off of antibiotics and he feels that the compression wraps continue to be beneficial in terms of treating the chronic livedoid vasculopathy that is the source of his recurrent and very painful ulcers. 05/19/16. Seen by Dr. Mora. The patient continues to report improvements in terms of pain and drainage associated with bilateral lower leg nonpressure ulcers. He is now off of antibiotics and he feels that the compression wraps continue to be beneficial in terms of treating the chronic livedoid vasculopathy that is the source of his recurrent and very painful ulcers. 05/12/16. Seen by Dr. Mora. The patient continues to report improving pain and drainage associated with bilateral lower leg nonpressure ulcers. He continues on Augmentin without reported adverse side effects for chronic wound infection and has tolerated his compression wraps which are treating his chronic livedoid vasculopathy without reporting any problems. 05/06/16. Seen by Dr. Mora. The patient reports decreased pain and drainage associated with bilateral lower leg nonpressure ulcers. He continues on Augmentin without reporting adverse side effects for the chronic wound infections. He's also tolerated his compression wraps and feels that they are beneficial in terms of treating his chronic livedoid vasculopathy. 04/22/16. Seen by Dr. Mora. The patient feels there's been some modest improvement over the past week in the bilateral leg pain associated with the chronic bilateral non- pressure ulcers. He's on Augmentin without reporting adverse side effects for a wound infection and feels the compression wraps have been beneficial in treating the acute flare of livedoid vasculopathy which is the underlying pathology of his recurrent ulcers. 04/15/16. Seen by Dr. Mora. The patient reports significant pain and drainage associated with the bilateral lower leg non-pressure ulcers since his last visit and he's now on Augmentin for a polymicrobial wound infection. Of note, he suffers from livedoid vasculopathy with very painful flares resulting in severe, hypoxic ulceration that's responded well in the past to compression therapy and targeted antibiotics plus hyperbaric oxygen therapy which as been approved and provided off label. 01/01/16. Seen by Dr. Mora. The patient does not report pain or significant drainage associated with the left lower leg non-pressure ulcers since he started taking moxifloxacin 3 days ago. Of note, this was not prescribed recently and he states it was left over from a previous prescription written a few months ago. He has a long history of bilateral lower leg ulcers associated with livedoid vasculopathy and he feels compression therapy and targeted antibiotic therapy, along with HBOT, have been quite effective at managing acute flares. 8/12/16 Seen by Reginaldo Gallagher PA-C. The patient states that he has completed his course of moxifloxacin and his ulcers have improved remarkably with decreased pain and drainage. 10/13/15 Seen by Reginaldo Gallagher PA-C. The patient reports fevers and chills in the past few days. He also reports that he has not obtained, or started taking the bactrim that was prescribed due to some confusion with his prescription and the pharmacy. His ulcer culture has returned with strep spp. He reports continued pain and drainage form his ulcers. 09/30/15 Seen by Reginaldo Gallagher PA-C. The patient returns to our clinic with a recurrence and worsening of his livedoid vasculopathy ulcers of the right and left lower legs. He reports that they have been extremely painful in the past week which has prompted him to come to this appointment. The pain is described as searing and burning, non-radiating and up to 10/10 exacerbated by the ulcers being touched. 03/06/[address] Mora. The patient reports only moderate discomfort associated with the right medial lower leg ulcer but otherwise no pain with the other lower leg ulcers. He also reports only minimal drainage from the ulcers and feels the daily compression wraps continue to be effective. 02/24/15 Seen by Reginaldo Gallagher PA-C. The patient notes improvement in pain and drainage from his ulcers. With this recent episode of lividoid vasculopathy it appears that there were no identifiable triggering events. The ulcers appeared to respond to culture- directed antibiotic therapy, debridement when tolerated, hyperbaric oxygen treatments and compression. It is unclear if nifedipine helped. His pain is now 1-2/10. 02/17/15 Seen by Reginaldo Gallagher PA-C. The patient continues to report more pain and drainage from his right lower leg ulcers than his left. He is concerned about new areas of ecchymosis that look like they're going to blow up again. He is not on nifedipine at this point as an adjunct treatment for his livedoid vasculopathy though he recalls that my feet and toes felt warmer when I was taking it. 02/06/[address] Mora. The patient does not report drainage from his chronic bilateral lower leg non-pressure ulcers and reports only minimal pain associated with the right lower leg medial ulcer. 01/30/[address] Mora. The patient reports less pain associated with the bilateral lower leg ulcers and feels the drainage continues to decrease since starting HBOT and compression wrap therapy. He continues on Bactrim for the MSSA positive wound culture and does not report adverse side effects. 01/16/[address] Mora. The patient states the pain associated with his right lower leg ulcers is still present but much improved since starting HBOT and utilizing compression wraps. He feels the drainage from all bilateral lower leg ulcers continues to decrease also an he continues on Bactrim for an MSSA positive wound culture from 01/04/15 and he does not report adverse side effects. 01/02/[address] Mora. The patient reports increasing pain and drainage associated with the left lower leg ulcers but he does not report fever. His left compression wrap has soaked through and he's not currently on antibiotics. 12/20/[address] Mora. The patient feels the bilateral lower leg pain associated with the chronic livedoid vasculopathy ulcers improved somewhat with compression therapy and he's also started taking low dose nifedipine for the condition but reports a headached since starting to take this. His wound culture of the right medial ulcer grew resistant coag negative Staph and he's currently not on antibiotics. The staff report minimal drainage on the left left and moderate from the right lower leg medial ulcer. Of note, he was also approved by his insurer for hyperbaric oxygen therapy as off label treatment for the recent severe flare of lower leg ulcerations as described in my previous note. 12/12/[address] Mora. The patient complains of increasing bilateral lower leg pain and feels there are new ulcers, particularly on the right medial lower leg, forming and draining. He's been applying Comprilan compression wraps at home which offer symptomatic relief and he's reported fevers over the weekend but also states he has some ear pain. He' s not currently on antibiotics and his wound culture from 11/27/14 showed no organisms. 11/27/14 Seen by Reginaldo Gallagher PA-C. The patient continues to have persistent and severe pain in his leg wounds with the left leg worse than the right. He has noted multiple new areas of purpuric rash and new small ulcers forming on both lower legs. These symptoms are consistent with previous flares of his lividoid vasculopathy. His most recent flare of this condition, one year ago, his ulcers progressed to the point of exposed tendon and muscle and required hyperbaric oxygen treatment to reverse the progression of disease. He has been taking levaquin for Enterobacter Cloacae which was cultured from his wound and has noted no improvement since starting the levaquin. 11/20/[address] Mora. The patient reports persistent pain in both the left and right lower legs and feels the ulcers over both legs are deteriorating a bit despite being on doxycycline. The ulcers continue to drain and he's been gently wrapping the legs with an ALEJANDRO bandage as he feels this has relieved the discomfort in the past. He does not report fever or chills. 11/11/[address] Mora. The patient feels his left leg pain and swelling have improved since starting doxycycyline at the last visit for a Klebsiella, Enterococcus, coag neg Staph wound culture from 11/01/14. 11/04/[address] Mora. The patient reports increased pain and swelling in the left lower leg with subjective fevers over the past few days. He does not report increased drainage from his ulcers however. His left lower leg ulcer wound culture returned Klebsiella, Enterobacter, and coag negative Staph on 11/03/14. He also feels that the previously described lesions over the anterior left lower leg have now deteriorated into new ulcers. 10/18/[address] Mora. The patient continues to complains of moderate to severe intermittent pain at the site of the left lower leg proximal ulcer however he reports only minimal drainage from his ulcers and is changing dressings about every 3 days. He's been off of antibiotics for the past week. 10/10/[address] Mora. The patient continues to report pain associated with the left lower leg ulcer that's especially noticeable when the leg swells. He reports continued drainage from both this site and the left medial malleolar ulcer and he's completed his course of clindamycin. 09/30/14 Seen by Reginaldo Gallagher PA-C. The patient reports that his wounds are less painful today and are draining a little less as well. 09/17/14 Seen by Reginaldo Gallagher PA-C. The patient reports increased pain in his wounds without increased drainage. Pain is increased when the wounds are touched and is severe 8-9/10 and non-radiation. Described as a burning/stabbing pain. He is currently on Bactrim DS. 09/05/14 Seen by Reginaldo Gallagher PA-C. The patient reports he has not purchased Hibiclens soap yet but has been trying to keep the wounds clean. 08/29/14 Seen by Reginaldo Gallagher PA-C. The patient complains of increased pain from his wounds. Drainage is stable. He notes that he scrubs his wounds with soap and tap water on a frequent basis. He is not currently on antibiotics. 08/13/[address] Mora. The patient is now off Bactrim that was given for an ESBL E. coli positive wound culture of the left lower leg ulcer. He feels the pain, swelling , and drainage associated with the ulcers is now minimal but the lesion on the dorsum of the foot is now open. 08/01/[address] Mora. The patient feels the pain and drainage associated with the left lower leg ulcers as well as the swelling in the lower leg has improved since changing to Bactrim from clindamycin. 07/26/[address] Mora. The patient complains of increased pain over the anterior left lower leg and is concerned about possible new ulcers that may be developing in the area. He continues on clindamycin and does not report increased drainage from either of the two existing left lower leg ulcers. 07/18/14 The patient reports minimal drainage and pain associated with his two remaining left lower leg ulcers. He's been taking clindamycin however only twice daily instead of three times daily as prescribed. 07/11/14 The patient feels the pain and drainage from the remaining left lower leg ulcers has improved considerably over the past week however the anterior proximal ulcer is still quite tender. 07/03/14 The patient reports no fever or chills and no complications from his antibiotics or HBOT. 07/01/14 The patient's wound culture grew resistant coag negative Staph and he reports little improvement in the left lower leg ulcer pain and drainage over the past week. He also feels the swelling in the leg has not improved. He does not report fever, chills, or sweats. 06/26/14 The patient feels his left lower leg ulcers are draining less as the alginate he's been using seems to be dry. He continues on Bactrim and although the ulcers continue to be painful they're subjectively improving in terms of pain, leg swelling, and erythema. He' s also continued with HBOT and states he noticed his left leg was quite uncomfortable during the ascent yesterday. He complains of a headache today but no fever, chills, or other constitutional symptoms. 06/17/14 The patient reported a red rash of unknown significance, located on his back yesterday to the home infusion nurse. This rash appeared after his second infusion of ertapenem and the patient reports it was short lived, resolved spontaneously and was somewhat itchy. Yesterday the patient initially agreed to a TID regimen of a cephamycin antibiotic that his ESBL ecoli bacteria was sensitive to. He then became angry and agitated at the infusion center when he presented for his test dose. He left without receiving his infusion. Furthermore, today he reports blisters at the site of his PICC dressing and there is dried blood under the dressing. We discussed his chart-reported sulfa allergy, as his organism is sensitive to Bactrim. He reports this allergy was recorded on his chart after he had a red, linear, non- puritic rash on his abdomen while taking a sulfa antibiotic. He reports he finished several more days of the antibiotic and the rash resolved. He does not believe he has ever had an anaphylactic reaction once it's signs and symptoms were described. 06/10/14 The patient reports a significant increase in pain and drainage at the site of the left lower leg ulcers over the past week. He also reports swelling in the leg. 06/03/14 The patient reports that he hated the SNAP dressing and does not want it reapplied. He reports that the canister bothered him to the point of not being able to sleep, and the drainage from the non-included area of the SNAP caused maceration. 05/16/14 The patient feels the drainage from his left lower leg ulcer has decreased since treating his pansensitive coag negative Staph culture from the site with doxycycline after the last visit. This pain has also improved. He states he still required daily dressing changes however. 05/09/14 The patient still complains of pain at the left lower leg medial ulcer and states he needs to change the dressing daily. Otherwise he feels the lateral ulcer is nearly healed. 04/17/14 The patient reports increased inflammation, pain, and itching at the left medial ulcer site. He continues to have moderate drainage there requiring daily dressing changes. His wound culture from the lateral left foot ulcer on 04/02/14 grew coag negative Staph without sensitivities reported. He does not report fever or chills. 04/11/14 The patient reports decreased pain from his wounds and no drainage from his right lateral lower leg wound. He does not report fever or chills. 04/02/14 The patient reports increased pain in the left lower leg ulcers and has been of doxycycline for the past week. This was started based on his coag neg Staph wound culture from [facility]. He also reports subjective fevers and feeling generally unwell for the past few days. 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; complication of HBOT; s/p bilateral tympanoplasty) Surgical History This information was obtained from the patient Patient has a surgical history of: Ingunial Hernia (2004) [place] teeth extraction (1999) Complaints and Symptoms This information was obtained from the patient Patient complains of: General Notes: I have reviewed and concur with the Review of Systems and Past Family Social History documents completed by the clinician, I have reviewed and concur with the Wound Assessment document completed by the clinician Allergic/Immunologic: Frequent Rashes Cardiovascular (Central/Peripheral): Lower extremity (leg) swelling Hematologic/Lymphatic: Bleeding / Clotting Disorders Integumentary (Hair/Skin/Nails): Lesions, Open Sore Prior Wound History: Bleeding, Drainage, Erythema, Malodor, Pain Patient denies complaints or symptoms related to: Cardiovascular (Central/Peripheral): Lower extremity (leg) resting pain Constitutional Symptoms (General Health): Chills, Fever, Marked Weight Change Ear/Nose/Mouth/Throat: Hearing Loss / Aid Eyes: Partial/Complete Blindness Gastrointestinal (GI): Nausea / Vomiting Hematologic/Lymphatic: Bleeding Tendency Musculoskeletal: Assistive Devices, Muscle Weakness Neurological: Loss of Protective Sensation Psychiatric: Memory Loss Respiratory: Oxygen Use, Shortness of Breath Additional Information Does patient have a history of Cancer? Yes? Complete all questions.: No OBJECTIVE Constitutional Vital signs reviewed and noted. Well developed. Alert. Clean appearing.. Height/ Length: 74 in (187.96 cm), Weight: 181.7 lbs (82.59 kgs), BMI: 23.3, Temperature: 97.9 ?F ( 36.61 ?C), Pulse: 97 bpm, Respiratory Rate: 18 breaths/min, Blood Pressure: 130/84 mmHg, Pulse Oximetry: 99 %. Ears, Nose, Mouth, and Throat: No clinically significant hearing loss on informal examination. Respiratory: No respiratory distress. Even respirations and without use of accessory muscles.. Cardiovascular: 1+ bilateral lower leg edema. Gastrointestinal (GI): Non-obese. Nondistended.. Integumentary (Hair, Skin) Hemosiderin staining noted over bilateral lower legs. Refer to appropriate clinician wound documentation for this visit; right and left lower leg ulcers extend to subcut with bases partially covered with pink granulation, remainder fibrin and slough; left dorsal foot ulcer draining minimal purulent drainage. Wound #38 Right, Lateral Ankle is a chronic Full Thickness Vasculitic Ulcer and has received a status of Not Healed. Initial wound encounter measurements are 0.4cm length x 0.4cm width x 0.1cm depth, with an area of 0.16 sq cm and a volume of 0.016 cubic cm. No tunneling has been noted. No sinus tract has been noted. No undermining has been noted. There is a moderate amount of serosanguineous drainage noted which has no odor. The patient reports a wound pain of level 4/10. The wound margin is attached. Wound bed has No epithelialization, Yes eschar, Yes slough, No granulation. The periwound skin texture is normal. The periwound skin moisture is normal. The periwound skin exhibited: Atrophie Sarah, Hemosiderosis. The periwound skin did not exhibit: Cyanosis, Ecchymosis, Erythema, Pallor, Rubor. The temperature of the periwound skin is WNL. Periwound skin does not exhibit signs or symptoms of infection. Local Pulse is Palpable. General Notes: Multiple scattered open areas, all about the same size. Wound #39 Right, Medial Ankle is a chronic Full Thickness Vasculitic Ulcer and has received a status of Not Healed. Initial wound encounter measurements are 0.8cm length x 1.2cm width x 0.1cm depth, with an area of 0.96 sq cm and a volume of 0.096 cubic cm. No tunneling has been noted. No sinus tract has been noted. No undermining has been noted. There was no drainage noted. The patient reports a wound pain of level 3/10. The wound margin is attached. Wound bed has No epithelialization, Yes eschar, Yes slough, No granulation. The periwound skin texture is normal. The periwound skin moisture is normal. The periwound skin exhibited: Hemosiderosis. The periwound skin did not exhibit: Atrophie Sarah, Cyanosis, Ecchymosis, Erythema, Pallor, Rubor. The temperature of the periwound skin is WNL. Periwound skin does not exhibit signs or symptoms of infection. Local Pulse is Palpable. Wound #40 Left, Medial Ankle is a chronic Full Thickness Vasculitic Ulcer and has received a status of Not Healed. Initial wound encounter measurements are 0.6cm length x 0.8cm width x 0.1cm depth, with an area of 0.48 sq cm and a volume of 0.048 cubic cm. No tunneling has been noted. No sinus tract has been noted. No undermining has been noted. There was no drainage noted. The patient reports a wound pain of level 3/10. The wound margin is attached. Wound bed has No epithelialization, No eschar, Yes slough, No granulation. The periwound skin texture is normal. The periwound skin moisture is normal. The periwound skin exhibited: Hemosiderosis. The periwound skin did not exhibit: Atrophie Sarah, Cyanosis, Ecchymosis, Erythema, Pallor, Rubor. The temperature of the periwound skin is WNL. Periwound skin does not exhibit signs or symptoms of infection. Local Pulse is Palpable. General Notes: Multiple scattered open areas, largest measured. Wound #41 Left, Lateral Ankle is a chronic Full Thickness Vasculitic Ulcer and has received a status of Not Healed. Initial wound encounter measurements are 0.2cm length x 0.2cm width x 0.1cm depth, with an area of 0.04 sq cm and a volume of 0.004 cubic cm. No tunneling has been noted. No sinus tract has been noted. No undermining has been noted. There was no drainage noted. The patient reports a wound pain of level 3/10. The wound margin is attached. Wound bed has No epithelialization, Yes eschar, Yes slough, No granulation. The periwound skin texture is normal. The periwound skin moisture is normal. The periwound skin exhibited: Atrophie Engelhard, Hemosiderosis. The periwound skin did not exhibit: Cyanosis, Ecchymosis, Erythema, Pallor, Rubor. The temperature of the periwound skin is WNL. Periwound skin does not exhibit signs or symptoms of infection. Local Pulse is Palpable. Neurological: Cranial nerves grossly intact with symmetric function normal by informal observation.. ASSESSMENT Active Problems ICD-10 (Encounter Diagnosis) L97.812 - Non-pressure chronic ulcer of other part of right lower leg with fat layer exposed (Encounter Diagnosis) L97.822 - Non-pressure chronic ulcer of other part of left lower leg with fat layer exposed (Encounter Diagnosis) L08.9 - Local infection of the skin and subcutaneous tissue, unspecified (Encounter Diagnosis) L95.0 - Livedoid vasculitis PROCEDURES Wound #38 Wound #38 (Vasculitic Ulcer) is located on the right, lateral ankle. A non- selective mechanical debridement with a total area debrided of 0.04 sq cm was performed by Noah Mora MD. Non-viable tissue was removed.The procedure was tolerated well with a pain level of 3 throughout and a pain level of 3 following the procedure. Post Debridement Measurements: 0.2cm length x 0.2cm width x 0.1cm depth; with an area of 0.04 sq cm and a volume of 0.004 cubic cm; General Notes: Drainage removed. Wound #39 Wound #39 (Vasculitic Ulcer) is located on the right, medial ankle. A non- selective mechanical debridement with a total area debrided of 0.04 sq cm was performed by Noah Mora MD. Non-viable tissue was removed.The procedure was tolerated well with a pain level of 3 throughout and a pain level of 3 following the procedure. Post Debridement Measurements: 0.2cm length x 0.2cm width x 0.1cm depth; with an area of 0.04 sq cm and a volume of 0.004 cubic cm; General Notes: Drainage removed. Wound #40 Wound #40 (Vasculitic Ulcer) is located on the left, medial ankle. A non- selective mechanical debridement with a total area debrided of 0.16 sq cm was performed by Noah Mora MD. Non-viable tissue was removed.The procedure was tolerated well with a pain level of 3 throughout and a pain level of 2 following the procedure. Post Debridement Measurements: 0.4cm length x 0.4cm width x 0.1cm depth; with an area of 0.16 sq cm and a volume of 0.016 cubic cm; General Notes: Drainage removed. Wound #41 Wound #41 (Vasculitic Ulcer) is located on the left, lateral ankle. A non- selective mechanical debridement with a total area debrided of 0.04 sq cm was performed by Noah Mora MD. Non-viable tissue was removed.The procedure was tolerated well with a pain level of 3 throughout and a pain level of 3 following the procedure. Post Debridement Measurements: 0.2cm length x 0.2cm width x 0.1cm depth; with an area of 0.04 sq cm and a volume of 0.004 cubic cm; General Notes: Drainage removed. PLAN Wound Orders: Wound #38 Right, Lateral Ankle Anesthetic Topical Xylocaine to wound bed. - To all wounds in clinic only. Cleanser Cleanse Wound: - To all wounds: Normal saline and gauze, may use distilled water. May Shower. - Protect from shower water. Use cast protector or plastic bag when showering. Topical Treatments Antibiotic/Antimicrobial Ointment/Cream. - Gentamicin ointment to all open areas. Dressings Cover and secure with: - Telfa pad secured with hypafix tape. May use bandaids. Change Dressing: - As needed. Wound #39 Right, Medial Ankle Anesthetic Topical Xylocaine to wound bed. - To all wounds in clinic only. Cleanser Cleanse Wound: - To all wounds: Normal saline and gauze, may use distilled water. May Shower. - Protect from shower water. Use cast protector or plastic bag when showering. Topical Treatments Antibiotic/Antimicrobial Ointment/Cream. - Gentamicin ointment to all open areas. Dressings Cover and secure with: - Telfa pad secured with hypafix tape. May use bandaids. Change Dressing: - As needed. Wound #40 Left, Medial Ankle Anesthetic Topical Xylocaine to wound bed. - To all wounds in clinic only. Cleanser Cleanse Wound: - To all wounds: Normal saline and gauze, may use distilled water. May Shower. - Protect from shower water. Use cast protector or plastic bag when showering. Topical Treatments Antibiotic/Antimicrobial Ointment/Cream. - Gentamicin ointment to all open areas. Dressings Cover and secure with: - Telfa pad secured with hypafix tape. May use bandaids. Change Dressing: - As needed. Wound #41 Left, Lateral Ankle Anesthetic Topical Xylocaine to wound bed. - To all wounds in clinic only. Cleanser Cleanse Wound: - To all wounds: Normal saline and gauze, may use distilled water. May Shower. - Protect from shower water. Use cast protector or plastic bag when showering. Topical Treatments Antibiotic/Antimicrobial Ointment/Cream. - Gentamicin ointment to all open areas. Dressings Cover and secure with: - Telfa pad secured with hypafix tape. May use bandaids. Change Dressing: - As needed. Additional Orders: Compression/Edema Control Single Layer Compression Hose - Tetragrip size E tubular compression stockings daily. Follow-Up Appointments Return Appointment: - - One week, if not admitted to [facility] facility. Other information: If you develop fever, chills, increased pain, drainage, redness or swelling please call our office. If after hours, respond to the ER. Should you experience any significant changes in your wound(s) or have any questions regarding your home care instructions please contact the wound center @ [phone]. If after hours, contact your primary care physician or go to the hospital emergency room. Scribing Attestation I attest, as the nurse, that I scribed these orders for the physician. Laboratory: Culture Wound I've reviewed the clinician's documentation and agree with the evaluation and plan as written. Also, I'd anticipate with continued use of compression stockings, and possibly a short course of antibiotics depending on the wound culture results, that the patient's ulcer will heal in the near future. These flares will likely continue going forward and with early intervention should be limited in both severity and duration. Electronic Signature(s) Signed By: Date: Noah Mora MD 12/14/2017 13:52:56 Entered By: Noah Mora on 12/13/2017 15:21:24
== END ==
PROVIDERS: PCP Internal Medicine; Visit Provider Internal Medicine
DX: I87.2 Venous insufficiency (chronic) (peripheral) (principal); L97.812 Non-pressure chronic ulcer of other part of right lower leg with fat layer exposed; L97.822 Non-pressure chronic ulcer of other part of left lower leg with fat layer exposed; L08.9 Local infection of the skin and subcutaneous tissue, unspecified; L95.0 Livedoid vasculitis
CPT/HCPCS: 87070; 87075; 87077; 87147; 87186; 87205; 99215

== ENCOUNTER → 2020-10-29 18:20 | Outpatient (CLI) | payer MEDICARE, SELFPAY | PROVIDERS: PCP Internal Medicine; Referring Provider Student in an Organized Health Care Education/Training Program; Visit Provider Student in an Organized Health Care Education/Training Program | DX: L03.115 Cellulitis of right lower limb (principal); L03.116 Cellulitis of left lower limb; L97.919 Non-pressure chronic ulcer of unspecified part of right lower leg with unspecified severity; L97.929 Non-pressure chronic ulcer of unspecified part of left lower leg with unspecified severity | CPT/HCPCS: 87070; 87075; 87205 ==

== ENCOUNTER → 2020-10-31 09:18 | Outpatient (CLI) | payer MEDICARE, SELFPAY | PROVIDERS: PCP Internal Medicine; Referring Provider Internal Medicine; Visit Provider Nurse Practitioner Family | DX: L95.0 Livedoid vasculitis (principal); L08.9 Local infection of the skin and subcutaneous tissue, unspecified; L97.511 Non-pressure chronic ulcer of other part of right foot limited to breakdown of skin; L97.311 Non-pressure chronic ulcer of right ankle limited to breakdown of skin; L97.321 Non-pressure chronic ulcer of left ankle limited to breakdown of skin | CPT/HCPCS: 36415; 80048; 85025; 87070; 87077; 87186; 87205; 97597; 97598; 99214 ==

== ENCOUNTER → 2020-10-31 11:23 | Outpatient (CLI) | payer MEDICARE, SELFPAY ==
[2020-10-31 12:04] LABS: Add Manual Diff / Slide Review NO; Basophils Absolute Auto 0 /uL (0-100); Basophils Percent Auto 0.6 % (0-2); Eosinophils Absolute Auto 300 /uL (0-450); Eosinophils Percent Auto 3.5 % (2-4); Hematocrit 41.7 % (41-53); Lymphocytes Absolute Auto 1400 /uL (1100-4500); Lymphocytes Percent Auto 19.9 % (25-40); Mean Corpuscular HGB Conc 33.5 % (30-36); Mean Corpuscular Hemoglobin 31.1 PG (26-34); Mean Corpuscular Volume 92.7 fL (80-100); Monocytes Absolute Auto 700 /uL (0-900); Monocytes Percent Auto 9.5 % (3-14); Neutrophils Absolute Auto 4700 /uL (1500-7000); Neutrophils Percent Auto 66.5 % (50-75); Platelet Count 364 X10^3/uL (150-400); Red Blood Cell Count 4.49 X10^6/uL (4.5-5.9); Red Cell Distribution Width 12.9 % (11.6-14.8); White Blood Cell Count 7.1 X10^3/uL (4.5-11.0)
[2020-10-31 12:28] LABS: BUN Creatinine Ratio 22.4 (6-22); Blood Urea Nitrogen 26 mg/dL (9-20); Calcium 9.7 mg/dL (8.4-10.2); Carbon Dioxide 28 mmol/L (22-32); Chloride 105 mmol/L (98-107); Estimated Glomerular Filt Rate > 60.0 mL/min (>60); Glucose 121 mg/dL (70-100); HEMOLYSIS < 15 (0-50); Potassium 4.2 mmol/L (3.4-5.1); Sodium 141 mmol/L (137-145)
== END ==
PROVIDERS: Referring Provider Nurse Practitioner Family; Visit Provider Nurse Practitioner Family
DX: L08.9 Local infection of the skin and subcutaneous tissue, unspecified (principal)
CPT/HCPCS: 36415; 80048; 85025

== ENCOUNTER → 2020-11-11 13:44 | Outpatient (CLI) | payer MEDICARE, SELFPAY | LOC: WC 13:47 | PROVIDERS: Referring Provider Student in an Organized Health Care Education/Training Program; Visit Provider Family Medicine | DX: L95.0 Livedoid vasculitis (principal); L97.511 Non-pressure chronic ulcer of other part of right foot limited to breakdown of skin; L97.311 Non-pressure chronic ulcer of right ankle limited to breakdown of skin; L97.321 Non-pressure chronic ulcer of left ankle limited to breakdown of skin; L97.521 Non-pressure chronic ulcer of other part of left foot limited to breakdown of skin; I87.2 Venous insufficiency (chronic) (peripheral); F17.210 Nicotine dependence, cigarettes, uncomplicated; R60.0 Localized edema | CPT/HCPCS: 11042; 87070; 87075; 87077; 87147; 87186; 87205; 99214 ==

== ENCOUNTER → 2020-11-27 15:04 | Outpatient (CLI) | payer MEDICARE, SELFPAY | LOC: WC 15:06 | PROVIDERS: PCP Internal Medicine; Referring Provider Internal Medicine; Visit Provider Family Medicine | DX: L95.0 Livedoid vasculitis (principal); L97.511 Non-pressure chronic ulcer of other part of right foot limited to breakdown of skin; L97.311 Non-pressure chronic ulcer of right ankle limited to breakdown of skin; L97.321 Non-pressure chronic ulcer of left ankle limited to breakdown of skin; L97.521 Non-pressure chronic ulcer of other part of left foot limited to breakdown of skin; I87.2 Venous insufficiency (chronic) (peripheral); F17.210 Nicotine dependence, cigarettes, uncomplicated; L08.9 Local infection of the skin and subcutaneous tissue, unspecified | CPT/HCPCS: 87070; 87075; 87077; 87147; 87186; 87205; 97597; 99213 ==

== ENCOUNTER → 2020-12-11 09:20 | Outpatient (CLI) | payer MEDICARE, SELFPAY | LOC: WC 09:21 | PROVIDERS: PCP Internal Medicine; Referring Provider Internal Medicine; Visit Provider Family Medicine | DX: L95.0 Livedoid vasculitis (principal); I87.2 Venous insufficiency (chronic) (peripheral); L97.311 Non-pressure chronic ulcer of right ankle limited to breakdown of skin; L97.321 Non-pressure chronic ulcer of left ankle limited to breakdown of skin; L97.511 Non-pressure chronic ulcer of other part of right foot limited to breakdown of skin; L97.521 Non-pressure chronic ulcer of other part of left foot limited to breakdown of skin; L08.9 Local infection of the skin and subcutaneous tissue, unspecified; B95.7 Other staphylococcus as the cause of diseases classified elsewhere; R21 Rash and other nonspecific skin eruption; R60.0 Localized edema; Z72.0 Tobacco use | CPT/HCPCS: 87070; 87077; 87147; 87186; 87205; 99214; 99215 ==

== ENCOUNTER 2020-12-12 14:29 | Emergency (ER) | payer MEDICARE, SELFPAY ==
[2020-12-12 14:35] VITALS: BP 133/84; PULSE 78; RESP 14; TEMP 36.6; O2SAT 99
--- NOTE | 2020-12-12 14:45 | ED_ITS ---
HPI - Allergic Reaction General Chief complaint: Allergic Reaction Stated complaint: Reaction to Medication, Facial Swelling Time Seen by Provider: 12/12/20 14:32 Source: patient Mode of arrival: Ambulatory Limitations: no limitations History of Present Illness HPI narrative: Patient is a 55-year-old male. Has had a prolonged issue with lower extremity cellulitis and swelling. Has been on multiple antibiotics. Was recently on doxycycline. Earlier this week he started having swelling and itching of his hands and his face. He is. Take the doxycycline since then. He has seen his wound care provider. Was placed on a steroid cream because of the swelling. Has also been doing Benadryl. States that last evening he was having a sore throat. Is not currently having that. No vomiting. No problems breath ing. He was told to come into the emergency department for evaluation. Related Data Previous Rx's Medication Instructions Recorded prednisone 20 mg tablet 20 mg PO DAILY 3 Days #3 tab 12/12/20 Allergies Allergy/AdvReac Type Severity Reaction Status Date / Time adhesive tape Allergy blistering Verified 10/29/20 16:34 and sores bacitracin Allergy makes skin Verified 10/29/20 16:34 [From Neosporin rot ([id number])] doxycycline Allergy Verified 12/12/20 14:40 neomycin Allergy makes skin Verified 10/29/20 16:34 [From Neosporin rot ([id number])] polymyxin B Allergy makes skin Verified 10/29/20 16:34 [From Neosporin rot ([id number])] Review of Systems Constitutional Constitutional: Denies fever(s) and Denies headache(s) ENT Ears, Nose, Mouth, and Throat: Denies headache(s) Respiratory Respiratory: Reports as per HPI and Reports system reviewed and no additional complaints, except as documented Gastrointestinal Gastrointestinal: Reports as per HPI and Reports system reviewed and no additional complaints, except as documented Musculoskeletal Musculoskeletal: Reports system reviewed and no additional complaints, except as documented and Reports as per HPI Integumentary/Breasts Skin/Breast: Reports system reviewed and no additional complaints, except as documented and Reports as per HPI Neurologic Neurologic: Denies headache(s) Hematologic/Lymphatic On Anticoagulants: No Allergic/Immunologic Allergic/Immunologic: Reports system reviewed and no additional complaints, except as documented and Reports as per HPI Patient History Medical History 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 Social History Smoking Status: Current every day smoker Smoking Status: Current every day smoker alcohol intake frequency: 0-2 drinks per day Substance Use Type: does not use Exam Initial Vital Signs Initial Vital Signs: Vital Signs Temperature 97.8 F 12/12/20 14:35 Pulse Rate 78 12/12/20 14:35 Respiratory Rate 14 12/12/20 14:35 Blood Pressure 133/84 12/12/20 14:35 Pulse Oximetry 99 12/12/20 14:35 Const General: cooperative and comfortable HENNE Head: No contusion Eyes General: appearance normal, both eyes and all related structures Resp Effort & Inspection: normal respiratory effort Auscultation: clear to auscultation bilaterally Cardio Rate: regular rate Rhythm: regular rhythm Skin Other: Patient does have a macular papular rash throughout his face. Does spare the eyes. Has a slight rash on both his hands as well. Bilateral lower extremities covered with bandages. Neuro General: patient alert, patient awake and patient oriented x3 Extrem Other: Bilateral lower extremities covered with bandages. Psych Appearance: grossly normal and well kempt Course Orders Ordered: Discontinued Medications Diphenhydramine HCl (Diphenhydramine 50 Mg/Ml Vial) 25 mg IV NOW ONE Stop: 12/12/20 14:46 Last Admin: 12/12/20 15:01 Dose: 25 mg Documented by: DIANNA Methylprednisolone (Methylprednisolone 125 Mg/2 Ml Vial) 125 mg IV NOW ONE Stop: 12/12/20 14:46 Last Admin: 12/12/20 15:00 Dose: 125 mg Documented by: DIANNA Vital Signs Vital signs: Vital Signs - 8 hr 12/12/20 14:35 Temperature 97.8 F Pulse Rate 78 Respiratory Rate 14 Blood Pressure 133/84 Pulse Oximetry 99 MDM - Allergic Reaction MDM Narrative Medical decision making narrative: Unsure the exact etiology of the patient's symptoms. No respiratory distress. No vomiting. Symptoms are not consistent with anaphylaxis. Plan will be is to send home with a short course of steroids. I did discuss that this could potentially make infections worse but he does seem to be having quite a bit of itching because of the rash on his face. Will have him follow-up with his wound care provider. Discharge Plan Departure Patient Disposition: Home Clinical Impression: Allergic reaction Instructions: DI for Rash Activity Restrictions/Additional Instructions: You can take 1-2 [id number] 25 mg Benadryl every 4-6 hours as needed for itching the rash. You can also start taking a allergy medicine such as Zyrtec. I recommend that you contact the wound care provider that has been following your lower extremity wounds for follow-up. Return to the emergency department for any worsening symptoms. Prescriptions: New prednisone 20 mg tablet 20 mg PO DAILY 3 Days Qty: 3 RF: 0
[2020-12-12] MEDS: methylPREDNISolone 125 MG/2 ML VIAL IV (15:00)
[2020-12-12] MEDS: diphenhydrAMINE 50 MG/ML VIAL 25 MG IV (15:01)
[2020-12-12 16:00] VITALS: BP 132/84; PULSE 74; RESP 18; O2SAT 97
== END 2020-12-12 16:02 | disposition home or self-care (01) ==
PROVIDERS: Emergency Provider Emergency Medicine
DX: R21 Rash and other nonspecific skin eruption (principal); T50.995A Adverse effect of other drugs, medicaments and biological substances, initial encounter
CPT/HCPCS: 96374; 96375; 99283; 99284; J1200; J2930

== ENCOUNTER → 2021-01-19 15:32 | Outpatient (CLI) | payer MEDICARE, SELFPAY | PROVIDERS: Referring Provider Student in an Organized Health Care Education/Training Program; Visit Provider Family Medicine | DX: L95.0 Livedoid vasculitis (principal); I87.2 Venous insufficiency (chronic) (peripheral); L97.311 Non-pressure chronic ulcer of right ankle limited to breakdown of skin; L97.321 Non-pressure chronic ulcer of left ankle limited to breakdown of skin; L97.511 Non-pressure chronic ulcer of other part of right foot limited to breakdown of skin; L97.521 Non-pressure chronic ulcer of other part of left foot limited to breakdown of skin; L08.89 Other specified local infections of the skin and subcutaneous tissue; B96.5 Pseudomonas (aeruginosa) (mallei) (pseudomallei) as the cause of diseases classified elsewhere; B95.1 Streptococcus, group B, as the cause of diseases classified elsewhere; R21 Rash and other nonspecific skin eruption; R60.0 Localized edema; Z72.0 Tobacco use | CPT/HCPCS: 99213; 99215 ==

== ENCOUNTER → 2021-03-11 11:03 | Outpatient (CLI) | payer MEDICARE, SELFPAY | LOC: WC 11:04 | PROVIDERS: PCP Physician Assistant; Referring Provider Physician Assistant; Visit Provider Family Medicine | DX: L95.0 Livedoid vasculitis (principal); I87.2 Venous insufficiency (chronic) (peripheral); L97.322 Non-pressure chronic ulcer of left ankle with fat layer exposed; R60.0 Localized edema; Z72.0 Tobacco use | CPT/HCPCS: 99213 ==

== ENCOUNTER → 2021-05-28 09:16 | Outpatient (CLI) | payer MEDICARE, SELFPAY | PROVIDERS: PCP Physician Assistant; Referring Provider Physician Assistant; Visit Provider Family Medicine | DX: L95.0 Livedoid vasculitis (principal); I87.2 Venous insufficiency (chronic) (peripheral); L97.822 Non-pressure chronic ulcer of other part of left lower leg with fat layer exposed; L97.522 Non-pressure chronic ulcer of other part of left foot with fat layer exposed; L97.322 Non-pressure chronic ulcer of left ankle with fat layer exposed; L08.9 Local infection of the skin and subcutaneous tissue, unspecified; R60.0 Localized edema; Z72.0 Tobacco use | CPT/HCPCS: 11042; 87070; 87075; 87077; 87147; 87186; 87205; 99213; 99214 ==

== ENCOUNTER → 2021-06-18 08:47 | Outpatient (CLI) | payer MEDICARE, SELFPAY | PROVIDERS: PCP Physician Assistant; Referring Provider Physician Assistant; Visit Provider Family Medicine | DX: L95.0 Livedoid vasculitis (principal); I87.2 Venous insufficiency (chronic) (peripheral); L97.822 Non-pressure chronic ulcer of other part of left lower leg with fat layer exposed; L97.522 Non-pressure chronic ulcer of other part of left foot with fat layer exposed; L08.9 Local infection of the skin and subcutaneous tissue, unspecified; B95.61 Methicillin susceptible Staphylococcus aureus infection as the cause of diseases classified elsewhere; R60.0 Localized edema; Z72.0 Tobacco use | CPT/HCPCS: 17250; 99212; 99213 ==

== ENCOUNTER → 2021-07-23 09:06 | Outpatient (CLI) | payer MEDICARE, SELFPAY | PROVIDERS: PCP Physician Assistant; Referring Provider Physician Assistant; Visit Provider Family Medicine | DX: L95.0 Livedoid vasculitis (principal); L97.822 Non-pressure chronic ulcer of other part of left lower leg with fat layer exposed; L97.522 Non-pressure chronic ulcer of other part of left foot with fat layer exposed; L97.512 Non-pressure chronic ulcer of other part of right foot with fat layer exposed; I87.2 Venous insufficiency (chronic) (peripheral); Z72.0 Tobacco use | CPT/HCPCS: 97597; 99212; 99213 ==

== ENCOUNTER → 2021-09-10 09:52 | Outpatient (CLI) | payer MEDICARE, SELFPAY | PROVIDERS: PCP Physician Assistant; Referring Provider Physician Assistant; Visit Provider Family Medicine | DX: L95.0 Livedoid vasculitis (principal); L97.822 Non-pressure chronic ulcer of other part of left lower leg with fat layer exposed; L97.522 Non-pressure chronic ulcer of other part of left foot with fat layer exposed; L97.812 Non-pressure chronic ulcer of other part of right lower leg with fat layer exposed; L97.512 Non-pressure chronic ulcer of other part of right foot with fat layer exposed; Z72.0 Tobacco use; L08.9 Local infection of the skin and subcutaneous tissue, unspecified | CPT/HCPCS: 11042; 87070; 87075; 87077; 87147; 87186; 87205; 99214 ==

== ENCOUNTER → 2021-09-17 14:04 | Outpatient (CLI) | payer MEDICARE, SELFPAY | PROVIDERS: PCP Physician Assistant; Referring Provider Physician Assistant; Visit Provider Family Medicine | DX: L95.0 Livedoid vasculitis (principal); L97.522 Non-pressure chronic ulcer of other part of left foot with fat layer exposed; L97.512 Non-pressure chronic ulcer of other part of right foot with fat layer exposed; L97.822 Non-pressure chronic ulcer of other part of left lower leg with fat layer exposed; L97.812 Non-pressure chronic ulcer of other part of right lower leg with fat layer exposed; L97.312 Non-pressure chronic ulcer of right ankle with fat layer exposed; L97.322 Non-pressure chronic ulcer of left ankle with fat layer exposed; I87.2 Venous insufficiency (chronic) (peripheral); L08.9 Local infection of the skin and subcutaneous tissue, unspecified; L27.0 Generalized skin eruption due to drugs and medicaments taken internally; B95.61 Methicillin susceptible Staphylococcus aureus infection as the cause of diseases classified elsewhere; Z72.0 Tobacco use | CPT/HCPCS: 99214; 99215 ==

== ENCOUNTER → 2021-09-17 16:29 | Outpatient (CLI) | payer MEDICARE, SELFPAY ==
[2021-09-17 18:07] LABS: Add Manual Diff / Slide Review NO; Basophils Absolute Auto 100 /uL (0-100); Basophils Percent Auto 0.8 % (0-2); Eosinophils Absolute Auto 400 /uL (0-450); Eosinophils Percent Auto 5.7 % (2-4); Hematocrit 45.2 % (41-53); Hemoglobin 15.7 g/dL (13.5-17.5); Lymphocytes Absolute Auto 1700 /uL (1100-4500); Lymphocytes Percent Auto 21.4 % (25-40); Mean Corpuscular HGB Conc 34.6 % (30-36); Mean Corpuscular Hemoglobin 31.4 PG (26-34); Mean Corpuscular Volume 90.5 fL (80-100); Monocytes Absolute Auto 700 /uL (0-900); Monocytes Percent Auto 8.4 % (3-14); Neutrophils Absolute Auto 5000 /uL (1500-7000); Neutrophils Percent Auto 63.7 % (50-75); Platelet Count 428 X10^3/uL (150-400); Red Cell Distribution Width 12.8 % (11.6-14.8); White Blood Cell Count 7.8 X10^3/uL (4.5-11.0)
[2021-09-17 18:23] LABS: Alanine Aminotransferase 39 IU/L (<50); Albumin 4.4 g/dL (3.5-5.0); Albumin Globulin Ratio 1.3 (1.0-2.8); Alkaline Phosphatase 78 U/L (38-126); Aspartate Aminotransferase 29 IU/L (17-59); BUN Creatinine Ratio 17.2 (6-22); Bilirubin Total 0.4 mg/dL (0.2-1.3); Blood Urea Nitrogen 17 mg/dL (9-20); Calcium 9.5 mg/dL (8.4-10.2); Carbon Dioxide 29 mmol/L (22-32); Chloride 102 mmol/L (98-107); Estimated Glomerular Filt Rate > 60 mL/min (>60); Globulin 3.4 g/dL (1.7-4.1); Glucose 98 mg/dL (70-100); HEMOLYSIS < 15 (0-50); Potassium 4.1 mmol/L (3.4-5.1); Sodium 138 mmol/L (137-145); Total Protein 7.8 g/dL (6.3-8.2)
== END ==
PROVIDERS: PCP Physician Assistant; Referring Provider Family Medicine; Visit Provider Family Medicine
DX: L08.9 Local infection of the skin and subcutaneous tissue, unspecified (principal); L97.522 Non-pressure chronic ulcer of other part of left foot with fat layer exposed; L97.822 Non-pressure chronic ulcer of other part of left lower leg with fat layer exposed
CPT/HCPCS: 36415; 80053; 85025

== ENCOUNTER → 2021-09-24 14:15 | Outpatient (CLI) | payer MEDICARE, SELFPAY | LOC: WC 14:16 | PROVIDERS: PCP Physician Assistant; Referring Provider Physician Assistant; Visit Provider Family Medicine | DX: L08.9 Local infection of the skin and subcutaneous tissue, unspecified (principal); L95.0 Livedoid vasculitis; L97.822 Non-pressure chronic ulcer of other part of left lower leg with fat layer exposed; L97.522 Non-pressure chronic ulcer of other part of left foot with fat layer exposed; L97.512 Non-pressure chronic ulcer of other part of right foot with fat layer exposed; L97.312 Non-pressure chronic ulcer of right ankle with fat layer exposed; L97.812 Non-pressure chronic ulcer of other part of right lower leg with fat layer exposed; I87.2 Venous insufficiency (chronic) (peripheral); L97.322 Non-pressure chronic ulcer of left ankle with fat layer exposed; Z72.0 Tobacco use | CPT/HCPCS: 87070; 87075; 87205; 97597; 99214 ==

== ENCOUNTER → 2021-09-30 15:33 | Outpatient (CLI) | payer MEDICARE, SELFPAY | LOC: WC 15:34 | PROVIDERS: PCP Physician Assistant; Referring Provider Physician Assistant; Visit Provider Family Medicine | DX: L95.0 Livedoid vasculitis (principal); Z72.0 Tobacco use; L97.522 Non-pressure chronic ulcer of other part of left foot with fat layer exposed; L97.512 Non-pressure chronic ulcer of other part of right foot with fat layer exposed; L97.312 Non-pressure chronic ulcer of right ankle with fat layer exposed; L97.812 Non-pressure chronic ulcer of other part of right lower leg with fat layer exposed; L97.822 Non-pressure chronic ulcer of other part of left lower leg with fat layer exposed; L97.322 Non-pressure chronic ulcer of left ankle with fat layer exposed | CPT/HCPCS: 99212; 99213 ==

== ENCOUNTER 2021-10-30 00:36 | Emergency (ER) | payer MEDICARE, SELFPAY ==
[2021-10-30 00:46] VITALS: BP 151/93; PULSE 77; RESP 18; TEMP 36.7; O2SAT 99; BMI 23.1
--- NOTE | 2021-10-30 00:55 | ED_ITS ---
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 Has not been feeling well but does not describe specific fevers has had some chills today. No cough chest pain dyspnea tachypnea, headaches, abdominal pain, vomiting, diarrhea. He has a primary care doctor in [place] as well as [place] in moves between both [facility]. He has been on Bactrim fairly chronically which seems to keep the wound infections well controlled. He has at least monthly and frequently every other week visits with the wound care clinic. He does an excellent job with dr leatha maguire and wound care at home. Related Data Previous Rx's Medication Instructions Recorded levofloxacin 500 mg tablet 500 mg PO DAILY #20 tabs 10/30/21 oxycodone-acetaminophen 5 mg-325 1 tab PO Q6H PRN pain #20 tabs 10/30/21 mg tablet sulfamethoxazole 800 1 tab PO BID #14 tabs 10/30/21 mg-trimethoprim 160 mg tablet (Bactrim DS) Allergies Allergy/AdvReac Type Severity Reaction Status Date / Time adhesive tape Allergy blistering Verified 10/29/20 16:34 and sores bacitracin Allergy makes skin Verified 10/29/20 16:34 [From Neosporin rot ([id number])] doxycycline Allergy Verified 12/12/20 14:40 neomycin Allergy makes skin Verified 10/29/20 16:34 [From Neosporin rot ([id number])] polymyxin B Allergy makes skin Verified 10/29/20 16:34 [From Neosporin rot ([id number])] Review of Systems Review of Systems Narrative: Remainder of complete review of systems is otherwise unremarkable except for that included in the HPI. 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 Well-nourished well-developed HEENT: Moist mucous membranes, normal sclera with reactive pupils, Neck: No JVD, supple Respiratory: Lungs are clear to auscultation, no wheezing no rales no rhonchi. Full and symmetrical air movement Cardiac: Regular rate and rhythm no murmurs no bruits Abdomen: Soft, nontender, good bowel tones, no flank pain Skin: Multiple superficial wounds over both lower extremities but no additional rashes, lymphadenitis or cellulitis Neurologic: Grossly neurologically intact with no obvious asymmetries or abnormalities Extremities: Chronic lower extremity excoriation to the dorsum of the right foot with superficial ulceration over the ankle that does not go below level of the dermis, does not track has no significant discharge smell or surrounding cellulitis. The left leg is somewhat more swollen to the upper calf. Wounds on this leg again are fairly superficial into dermis only, no underlying abscesses or muscle involvement. The wound on the left are in the popliteal fossa medial aspect of the left knee lateral aspect of the ankle and dorsum of the foot. He has good capillary refill but no palpable distal pulses. He does not have any inguinal adenopathy. He is able to walk but is somewhat antalgic mostly because of pain in the left leg due to the swelling Psych: Cooperative, appropriate insight and affect Course Orders Ordered: ED Orders 10/30/21 01:20 Complete Blood Count AUTO DIFF Stat Comprehensive Metabolic Panel Stat D Dimer Stat Procalcitonin Stat Hydromorphone HCl (Hydromorphone 0.5 Mg Inj) 0.5 mg IV Q15MIN PRN PRN Reason: Pain, Last Admin: 10/30/21 01:32 Dose: 0.5 mg Vital Signs Vital signs: Vital Signs - 8 hr 10/30/21 00:46 Temperature 98.1 F Pulse Rate 77 Respiratory Rate 18 Blood Pressure 151/93 H Pulse Oximetry 99 Oxygen Delivery Method Room Air MDM - Extremity (Nontraumatic) Lab Data Result diagrams: 10/30/21 01:20 10/30/21 01:20 Labs: Lab Results 10/30/21 10/30/21 10/30/21 Range/Units 01:20 01:20 01:20 WBC 5.9 (4.5-11.0) X10^3/uL RBC 4.52 (4.5-5.9) X10^6/uL Hgb 14.0 (13.5-17.5) g/dL Hct 40.3 L (41-53) % MCV 89.2 (80-100) fL MCH 31.1 (26-34) PG MCHC 34.8 (30-36) % RDW 13.3 (11.6-14.8) % Plt Count 423 H (150-400) X10^3/uL Neut % (Auto) 57.7 (50-75) % Lymph % (Auto) 28.3 (25-40) % Sharp % (Auto) 9.1 (3-14) % Eos % (Auto) 4.6 H (2-4) % Baso % (Auto) 0.3 (0-2) % Neut # (Auto) 3400 (5031-0278) /uL Lymph # (Auto) 1700 (0292-1382) /uL Sharp # (Auto) 500 (0-900) /uL Eos # (Auto) 300 (0-450) /uL Baso # (Auto) 0 (0-100) /uL D-Dimer 580 H (<500) ng/ml Sodium 139 (137-145) mmol/L Potassium 4.0 (3.4-5.1) mmol/L Chloride 106 (98-107) mmol/L Carbon Dioxide 26 (22-32) mmol/L BUN 27 H (9-20) mg/dL Creatinine 1.18 (0.66-1.25) mg/dL Estimated GFR > 60 (>60) mL/min BUN/Creatinine Ratio 22.9 H (6-22) Glucose 118 H (70-100) mg/dL Calcium 8.7 (8.4-10.2) mg/dL Total Bilirubin 0.2 (0.2-1.3) mg/dL AST 24 (17-59) IU/L ALT 20 (<50) IU/L Alkaline Phosphatase 102 (38-126) U/L Total Protein 7.2 (6.3-8.2) g/dL Albumin 4.1 (3.5-5.0) g/dL Globulin 3.1 (1.7-4.1) g/dL Albumin/Globulin Ratio 1.3 (1.0-2.8) Procalcitonin 0.04 (<0.5) ng/mL MDM Narrative Medical decision making narrative: Wound cultures within the last year have grown methicillin sensitive Staph aureus resistant to clindamycin but essentially sensitive to everything else including Septra which he is currently on, Cipro, levofloxacin, doxycycline. One culture had light Pseudomonas pansensitive and group B strep. Had Staph epidermidis with erythromycin and Septra resistance, doxycycline sensitive. Frances ballard was recently on doxycycline and had an adverse reaction to this. He has not had any adverse reactions to the fluoroquinolones. Labs returned and show no evidence of sepsis, overt infection, DVT or reason for hospitalization IV antibiotics or further evaluation at this time. Will double cover him with both Septra and Levaquin through the end of the month until his next visit with the wound care doctor. He is well aware of wound complications in will return if symptoms. Will also give him a short course of oxycodone to help with the pain from the the worsening infection from his microvascular superficial chronic wounds. Discharge Plan Departure Patient Disposition: Home Clinical Impression: Wound infection Lower extremity ulceration Qualifiers: Laterality: left Non-pressure ulcer stage: limited to breakdown of skin Qualified Code(s): L97.921 - Non-pressure chronic ulcer of unspecified part of left lower leg limited to breakdown of skin Instructions: DI for Wound Infection Activity Restrictions/Additional Instructions: Thank you for coming in today Your lab work is actually very reassuring. There does not appear to be significant deeper infection, abscess, dramatic cellulitis or blood clots. I do believe it your microvascular superficial ulceration is becoming infected and that is causing the increasing pain as well as swelling in your left leg. After reviewing cultures from wounds over the last year, I Want you to continue the Bactrim through the end of the month when you have an appointment with your wound care doctor. I will give you an additional week supply to complement the medication you just filled. I also am going to give you 20 days of Levaquin. Please take both antibiotics until otherwise directed by your wound care doctor. Using 400 mg of ibuprofen (2 [id number] pills) and 1 Tylenol every 6 hours can be very helpful in controlling pain. For severe pain to ibuprofen and 1 Percocet can be helpful All prescriptions have been electronically transmitted to [facility] this evening. If you find that you are getting worse or develop any new symptoms, please feel free to return to the emergency department for further evaluation. Prescriptions: New oxycodone-acetaminophen 5-325 mg tablet 1 tab PO Q6H PRN (Reason: pain) Qty: 20 0RF sulfamethoxazole-trimethoprim [Bactrim DS] 800-160 mg tablet 1 tab PO BID Qty: 14 0RF levofloxacin 500 mg tablet 500 mg PO DAILY Qty: 20 0RF Referrals: Linda Bar PA-C [Primary Care Provider] -
[2021-10-30] MEDS: HYDROMORPHONE 0.5 MG INJ IV (01:32)
[2021-10-30 01:41] LABS: Add Manual Diff / Slide Review NO; Basophils Absolute Auto 0 /uL (0-100); Basophils Percent Auto 0.3 % (0-2); Eosinophils Absolute Auto 300 /uL (0-450); Eosinophils Percent Auto 4.6 % (2-4); Hematocrit 40.3 % (41-53); Lymphocytes Absolute Auto 1700 /uL (1100-4500); Lymphocytes Percent Auto 28.3 % (25-40); Mean Corpuscular HGB Conc 34.8 % (30-36); Mean Corpuscular Hemoglobin 31.1 PG (26-34); Mean Corpuscular Volume 89.2 fL (80-100); Monocytes Absolute Auto 500 /uL (0-900); Monocytes Percent Auto 9.1 % (3-14); Neutrophils Absolute Auto 3400 /uL (1500-7000); Neutrophils Percent Auto 57.7 % (50-75); Platelet Count 423 X10^3/uL (150-400); Red Blood Cell Count 4.52 X10^6/uL (4.5-5.9); Red Cell Distribution Width 13.3 % (11.6-14.8); White Blood Cell Count 5.9 X10^3/uL (4.5-11.0)
[2021-10-30 01:44] LABS: Alanine Aminotransferase 20 IU/L (<50); Albumin 4.1 g/dL (3.5-5.0); Albumin Globulin Ratio 1.3 (1.0-2.8); Alkaline Phosphatase 102 U/L (38-126); Aspartate Aminotransferase 24 IU/L (17-59); BUN Creatinine Ratio 22.9 (6-22); Bilirubin Total 0.2 mg/dL (0.2-1.3); Blood Urea Nitrogen 27 mg/dL (9-20); Calcium 8.7 mg/dL (8.4-10.2); Carbon Dioxide 26 mmol/L (22-32); Chloride 106 mmol/L (98-107); Estimated Glomerular Filt Rate > 60 mL/min (>60); Globulin 3.1 g/dL (1.7-4.1); Glucose 118 mg/dL (70-100); HEMOLYSIS 16 (0-50); Sodium 139 mmol/L (137-145); Total Protein 7.2 g/dL (6.3-8.2)
[2021-10-30 01:55] LABS: D Dimer 580 ng/ml (<500)
[2021-10-30 02:01] LABS: Procalcitonin 0.04 ng/mL (<0.5)
[2021-10-30] MEDS: levoFLOXacin 250 MG TABLET 750 MG PO (02:41)
[2021-10-30] MEDS: TRIMETH/SULFA 160/800 (DS) TABLET 1 TAB PO (02:42)
[2021-10-30] MEDS: OXYCODONE/ACETAMINOPHEN 5/325 TABLET 2 TAB PO (02:42)
[2021-10-30 02:49] VITALS: BP 145/89; PULSE 75; RESP 18; O2SAT 99
== END 2021-10-30 02:51 | disposition home or self-care (01) ==
PROVIDERS: Emergency Provider Emergency Medicine; PCP Physician Assistant
DX: L97.921 Non-pressure chronic ulcer of unspecified part of left lower leg limited to breakdown of skin (principal)
CPT/HCPCS: 80053; 84145; 85025; 85379; 96374; 99284; J1170

== ENCOUNTER → 2021-11-12 14:11 | Outpatient (CLI) | payer MEDICARE, SELFPAY | PROVIDERS: PCP Physician Assistant; Referring Provider Physician Assistant; Visit Provider Family Medicine | DX: L95.0 Livedoid vasculitis (principal); L97.822 Non-pressure chronic ulcer of other part of left lower leg with fat layer exposed; L97.522 Non-pressure chronic ulcer of other part of left foot with fat layer exposed; L97.812 Non-pressure chronic ulcer of other part of right lower leg with fat layer exposed; I87.2 Venous insufficiency (chronic) (peripheral); L97.512 Non-pressure chronic ulcer of other part of right foot with fat layer exposed; Z72.0 Tobacco use; L08.9 Local infection of the skin and subcutaneous tissue, unspecified | CPT/HCPCS: 99213 ==

== ENCOUNTER → 2022-01-26 15:46 | Outpatient (CLI) | payer MEDICARE, SELFPAY | LOC: WC 15:47 | PROVIDERS: PCP Physician Assistant; Referring Provider Physician Assistant; Visit Provider Family Medicine | DX: L95.0 Livedoid vasculitis (principal); L97.522 Non-pressure chronic ulcer of other part of left foot with fat layer exposed; L97.512 Non-pressure chronic ulcer of other part of right foot with fat layer exposed; L97.312 Non-pressure chronic ulcer of right ankle with fat layer exposed; L97.812 Non-pressure chronic ulcer of other part of right lower leg with fat layer exposed; L97.822 Non-pressure chronic ulcer of other part of left lower leg with fat layer exposed; R60.0 Localized edema; R21 Rash and other nonspecific skin eruption; Z72.0 Tobacco use; L97.322 Non-pressure chronic ulcer of left ankle with fat layer exposed | CPT/HCPCS: 99213; 99214 ==

== ENCOUNTER → 2022-02-09 08:58 | Outpatient (CLI) | payer MEDICARE, SELFPAY | LOC: WC 09:01 | PROVIDERS: PCP Physician Assistant; Referring Provider Physician Assistant; Visit Provider Surgery | DX: L95.0 Livedoid vasculitis (principal); I87.2 Venous insufficiency (chronic) (peripheral); L97.522 Non-pressure chronic ulcer of other part of left foot with fat layer exposed; L97.512 Non-pressure chronic ulcer of other part of right foot with fat layer exposed; L97.312 Non-pressure chronic ulcer of right ankle with fat layer exposed; L97.812 Non-pressure chronic ulcer of other part of right lower leg with fat layer exposed; L97.822 Non-pressure chronic ulcer of other part of left lower leg with fat layer exposed; L97.322 Non-pressure chronic ulcer of left ankle with fat layer exposed; L08.9 Local infection of the skin and subcutaneous tissue, unspecified; Z72.0 Tobacco use | CPT/HCPCS: 99213; 99214 ==

== ENCOUNTER → 2022-03-31 09:48 | Outpatient (CLI) | payer MEDICARE, SELFPAY | LOC: WC 09:49 | PROVIDERS: PCP Physician Assistant; Referring Provider Physician Assistant; Visit Provider Surgery | DX: L95.0 Livedoid vasculitis (principal); L97.812 Non-pressure chronic ulcer of other part of right lower leg with fat layer exposed; L97.822 Non-pressure chronic ulcer of other part of left lower leg with fat layer exposed; L97.512 Non-pressure chronic ulcer of other part of right foot with fat layer exposed; L97.522 Non-pressure chronic ulcer of other part of left foot with fat layer exposed; I87.2 Venous insufficiency (chronic) (peripheral); L08.9 Local infection of the skin and subcutaneous tissue, unspecified; Z72.0 Tobacco use | CPT/HCPCS: 99213; 99214 ==

== ENCOUNTER → 2022-05-17 11:57 | Outpatient (CLI) | payer MEDICARE, SELFPAY ==
[2022-05-17 14:39] LABS: Hemoglobin A1C% w Est Avg Glu 5.4 % (4.0-6.0)
[2022-05-17 14:44] LABS: Cholesterol 189 mg/dL (140-199); HDL Cholesterol 40 mg/dL (40-60); LDL Cholesterol Calculated 98 mg/dL (<100); Triglycerides 257 mg/dL (35-150)
[2022-05-17 15:11] LABS: Prostate Specific Antigen Scrn 1.24 ng/mL (0.1-4.0)
== END ==
PROVIDERS: PCP Family Medicine; Referring Provider Family Medicine; Visit Provider Family Medicine
DX: E78.5 Hyperlipidemia, unspecified (principal); I10 Essential (primary) hypertension; Z12.5 Encounter for screening for malignant neoplasm of prostate
CPT/HCPCS: 36415; 80061; 83036; G0103

== ENCOUNTER → 2022-05-19 08:41 | Outpatient (CLI) | payer MEDICARE, SELFPAY | PROVIDERS: PCP Family Medicine; Referring Provider Physician Assistant; Visit Provider Surgery | DX: L95.0 Livedoid vasculitis (principal); L97.822 Non-pressure chronic ulcer of other part of left lower leg with fat layer exposed; S30.860A Insect bite (nonvenomous) of lower back and pelvis, initial encounter; L08.9 Local infection of the skin and subcutaneous tissue, unspecified; R60.0 Localized edema; L53.9 Erythematous condition, unspecified | CPT/HCPCS: 11042; 87070; 87075; 87077; 87147; 87186; 87205; 99213 ==

== ENCOUNTER → 2022-05-26 09:19 | Outpatient (CLI) | payer MEDICARE, SELFPAY | PROVIDERS: PCP Family Medicine; Referring Provider Family Medicine; Visit Provider Surgery | DX: L97.822 Non-pressure chronic ulcer of other part of left lower leg with fat layer exposed (principal); L95.0 Livedoid vasculitis; S70.262A Insect bite (nonvenomous), left hip, initial encounter; F17.210 Nicotine dependence, cigarettes, uncomplicated; R60.0 Localized edema; L53.9 Erythematous condition, unspecified | CPT/HCPCS: 99213; 99214 ==

== ENCOUNTER → 2022-06-28 08:35 | Outpatient (CLI) | payer MEDICARE, SELFPAY | LOC: WC 08:37 | PROVIDERS: PCP Family Medicine; Referring Provider Family Medicine; Visit Provider Surgery | DX: L95.0 Livedoid vasculitis (principal); L97.812 Non-pressure chronic ulcer of other part of right lower leg with fat layer exposed; L97.822 Non-pressure chronic ulcer of other part of left lower leg with fat layer exposed; L97.512 Non-pressure chronic ulcer of other part of right foot with fat layer exposed; L97.522 Non-pressure chronic ulcer of other part of left foot with fat layer exposed; I87.2 Venous insufficiency (chronic) (peripheral); Z72.0 Tobacco use; L08.9 Local infection of the skin and subcutaneous tissue, unspecified | CPT/HCPCS: 87070; 87075; 87077; 87147; 87186; 87205; 99213; 99214 ==

== ENCOUNTER → 2022-07-07 08:52 | Outpatient (CLI) | payer MEDICARE, SELFPAY ==
--- NOTE | 2022-07-07 | OV.WND_ITS ---
Progress Note Details Patient Name: Nolberto Nowak Patient Number: [id number] Clinician: Aruna Antoine RN Patient Date of : 1965 Physician / Property Claims Manager: WendyRafa Patient SUBJECTIVE Chief Complaint This information was obtained from the patient, chart Vasculitic ulcers to bilateral lower extremities. Allergies adhesive tape (Reaction: blisters), Neosporin ([id number]) (Reaction: inflamed), neomycin (Reaction: inflammation), polymyxin B (Reaction: inflammation), doxycycline (Reaction: rash/pruritus) HPI This information was obtained from the patient The following HPI elements were documented for the patient's wound: Location: BLE Duration: 06/14/22 Context: livedoid vasculopathy The patient is a 56-year-old male who returns today for evaluation of new bilateral lower extremity ulcerations that were 1st noted June 14, 2022. The ulcers are very painful and are surrounded by mild erythema. most recently he has been receiving dressing changes with gentamicin cream and Xeroform gauze. Cultures from last week grew MRSA. The patient has been on Bactrim for 1 week. 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 He underwent an extensive workup at the dermatology clinic at [facility] where the diagnosis was established. The patient has undergone a wide variety of treatments including combinations of anticoagulants, anti- platelet medications, fibrinolytic therapies, and anabolic steroids without success and his wounds are now considered palliative. The only treatment that offered any benefit was an off level use of hyperbaric oxygen several years ago. The ulcers do seem to occur less frequently since starting Cialis. Patient has declined any further workup or any further attempts at curative treatment. Ulcers do seem to fluctuate in severity and the patient has never been able to identify any factors that seem to make them worse. Linezolid and Bactrim have both helped in the past. Patient remains a current every day smoker. He denies having any fever or chills and reports no other changes in overall health. On today's visit the redness does appear to be improved, ulcers are stable. Previous testin06/28/22: Culture left leg grew MRSA 05/19/22: Left hip culture grew MRSA 10/30/21 (in ED): PLT 423K. Otherwise CBC and CMP without significant abnormality. D-Dimer 580. Procalcitonin 0.04. 09/24/21: L ankle. GS neg. Cx NG. 09/17/21: PLT 428K. Otherwise CBC and CMP without significant abnormality. 09/10/21: R leg. GS neg. Cx MSSA (R-clindamycin). 05/28/21: L leg. GS neg. Cx MSSA (R-clindamycin). 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 Yes? Complete all questions.: No OBJECTIVE Wound Assessment(s) Wound #54 Left, Lateral Ankle is a chronic Full Thickness Vasculitic Ulcer and has received a status of Not Healed. Initial wound encounter measurements are 0.1cm length x 0.1cm width x 0.1cm depth, with an area of 0.01 sq cm and a volume of 0.001 cubic cm. Adipose is exposed. No tunneling has been noted. No sinus tract has been noted. No undermining has been noted. There was no drainage noted. The patient reports a wound pain of level 0/10. The wound margin is irregular. Wound bed has No epithelialization, No eschar, No slough, No granulation. The periwound skin moisture is normal. The periwound skin exhibited: Edema, Atrophie Sarah, Hemosiderosis. The periwound skin did not exhibit: Rash, Erythema. The temperature of the periwound skin is WNL. Local Pulse is Palpable. General Notes: Multiple scattered areas covered in dried exudate. Wound #60 Left, Proximal, Lateral Leg is an acute Full Thickness Vasculitic Ulcer and has received a status of Not Healed. Initial wound encounter measurements are 3cm length x 3cm width x 0.1cm depth, with an area of 9 sq cm and a volume of 0.9 cubic cm. Adipose is exposed. No tunneling has been noted. No sinus tract has been noted. No undermining has been noted. There is a moderate amount of serosanguineous drainage noted which has no odor. The patient reports a wound pain of level 8/10. The wound margin is attached. Wound bed has No epithelialization, No eschar, Yes slough, Yes bright red, firm granulation. The periwound skin moisture is normal. The periwound skin exhibited: Edema, Ecchymosis, Erythema. The temperature of the periwound skin is WNL. Local Pulse is Palpable. Wound #61 Left, Medial Leg - lower is an acute Full Thickness Vasculitic Ulcer and has received a status of Not Healed. Initial wound encounter measurements are 3cm length x 3cm width x 0.1cm depth, with an area of 9 sq cm and a volume of 0.9 cubic cm. Adipose is exposed. No tunneling has been noted. No sinus tract has been noted. No undermining has been noted. There is a moderate amount of serosanguineous drainage noted which has no odor. The patient reports a wound pain of level 7/10. The wound margin is irregular. Wound bed has No epithelialization, No eschar, Yes slough, Yes bright red, firm granulation. The periwound skin moisture is normal. The periwound skin exhibited: Edema, Ecchymosis, Erythema. The temperature of the periwound skin is WNL. Local Pulse is Palpable. Wound #62 Right, Anterior Leg is an acute Full Thickness Vasculitic Ulcer and has received a status of Not Healed. Initial wound encounter measurements are 2.5cm length x 3.2cm width x 0.1cm depth, with an area of 8 sq cm and a volume of 0.8 cubic cm. Adipose is exposed. No tunneling has been noted. No sinus tract has been noted. No undermining has been noted. There is a moderate amount of serosanguineous drainage noted which has no odor. The patient reports a wound pain of level 7/10. The wound margin is irregular. Wound bed has No epithelialization, No eschar, Yes slough, Yes bright red, firm granulation. The periwound skin moisture is normal. The periwound skin exhibited: Edema, Ecchymosis, Erythema. The temperature of the periwound skin is WNL. Local Pulse is Palpable. Vitals Height/Length: 74 in (187.96 cm), Weight: 186.9 lbs (84.95 kgs), BMI: 24, Temperature: 97.9 ?F (36.61 ?C), Pulse: 85 bpm, Respiratory Rate: 16 breaths/min, Blood Pressure: 121/75 mmHg, Pulse Oximetry: 100 %. Physical Exam Constitutional Vital signs reviewed and noted. Well developed, well nourished, and in no acute distress. Alert and oriented x3. Respiratory: Even respirations without use of accessory muscles. No intercoastal retractions noted. Even and non labored respiration. Integumentary (Hair, Skin) mild periwound erythema, improved. See wound assessment. Neurological: Sensation: Symmetric function by informal observation. Psychiatric: Orientation to time, place and person: Normal affect with normal thought pattern. Additional Information The patient's potential to heal is: poor. Limited to breakdown of skin: No Limited to breakdown of skin: No Limited to breakdown of skin: No Limited to breakdown of skin: No ASSESSMENT Active Problems ICD-10 (Encounter Diagnosis) L95.0 - Livedoid vasculitis (Encounter Diagnosis) L97.812 - Non-pressure chronic ulcer of other part of right lower leg with fat layer exposed (Encounter Diagnosis) L97.822 - Non-pressure chronic ulcer of other part of left lower leg with fat layer exposed (Encounter Diagnosis) L97.512 - Non-pressure chronic ulcer of other part of right foot with fat layer exposed (Encounter Diagnosis) L97.522 - Non-pressure chronic ulcer of other part of left foot with fat layer exposed (Encounter Diagnosis) I87.2 - Venous insufficiency (chronic) (peripheral) (Encounter Diagnosis) Z72.0 - Tobacco use (Encounter Diagnosis) L08.9 - Local infection of the skin and subcutaneous tissue, unspecified General Notes: Multiple skin ulcerations of both lower extremities secondary to live avoid vasculopathy with cellulitis. Cellulitis improved on today's visit, ulcers stable. The following factors have been identified it may affect wound healing: Devitalized tissue Bioburden Infection Goals: Remove devitalized tissue Remove and prevent biofilm Prevent infection Plan: Continue dressing changes with gentamicin cream and Xeroform gauze, extend Bactrim DS 1 p.o. b.i.d. for 1 more week, follow up in 2 weeks for a recheck. PLAN Wound Orders: Wound #54 Left, Lateral Ankle Cleanser Cleanse Wound with normal saline Topical Treatments Antibiotic/Antimicrobial Ointment/Cream - Gentamicin cream to all open areas. Dressings Primary dressing - Xeroform cut to cover. Cover and secure with - Telfa pad, secured with conform. Change Dressing - Every day to apply gentamicin cream. Physician Review: Discussed the Plan of Care @ bedside with - the patient Reviewed hospital records. I, as the physician, have reviewed the orders scribed by the pollock RN's and agree. Wound #60 Left, Proximal, Lateral Leg Cleanser Cleanse Wound with normal saline Topical Treatments Antibiotic/Antimicrobial Ointment/Cream - Gentamicin cream to all open areas. Dressings Primary dressing - Xeroform cut to cover. Cover and secure with - Telfa pad, secured with conform. Change Dressing - Every day to apply gentamicin cream. Physician Review: Discussed the Plan of Care @ bedside with - the patient Reviewed hospital records. I, as the physician, have reviewed the orders scribed by the pollock RN's and agree. Wound #61 Left, Medial Leg - lower Cleanser Cleanse Wound with normal saline Topical Treatments Antibiotic/Antimicrobial Ointment/Cream - Gentamicin cream to all open areas. Dressings Primary dressing - Xeroform cut to cover. Cover and secure with - Telfa pad, secured with conform. Change Dressing - Every day to apply gentamicin cream. Physician Review: Discussed the Plan of Care @ bedside with - the patient Reviewed hospital records. I, as the physician, have reviewed the orders scribed by the pollock RN's and agree. Wound #62 Right, Anterior Leg Cleanser Cleanse Wound with normal saline Topical Treatments Antibiotic/Antimicrobial Ointment/Cream - Gentamicin cream to all open areas. Dressings Primary dressing - Xeroform cut to cover. Cover and secure with - Telfa pad, secured with conform. Change Dressing - Every day to apply gentamicin cream. Physician Review: Discussed the Plan of Care @ bedside with - the patient Reviewed hospital records. I, as the physician, have reviewed the orders scribed by the pollock RN's and agree. Additional Orders: Anesthetic Topical Xylocaine to wound bed - To all wounds in clinic. Compression/Edema Control Elevation of leg(s) above the level of the heart when sitting Avoid prolonged standing in one place Knee-high gradient compression stockings Compression Type: - Tubular compression stockings size D to both legs. Other Instructions: - Please burr picker refill of Bactrim and continue taking as prescribed. Follow-Up Appointments Return Appointment - Two weeks. Other information: If you develop fever, chills, increased pain, drainage, redness or swelling please call our office. If after hours, respond to the ER. Should you experience any significant changes in your wound(s) or have any questions regarding your home care instructions please contact the wound center @ [phone]. If after hours, contact your primary care physician or go to the hospital emergency room. Scribing Attestation I attest, as the nurse, that I scribed these orders for the physician. Medications prescribed: Bactrim DS - oral 800 mg-160 mg tablet twice daily starting 07/08/2022 Plan of Care: 01. ENSURE/ESTABLISH OPTIMAL BLOOD FLOW : - Complete lower extremity assessment 02. ASSESS FOR/TREAT INFECTION : - Evaluate for signs and symptoms of infection and document findings. - Obtain culture and sensitivity (CandS) or tissue culture when infection is suspected. (NOTE:) Consider repeating when wound healing <40% after 30 days of wound care. - Order appropriate antibiotics based on patient presentation and culture and sensitivity results. Instruct patient on the importance of taking medication as prescribed. 03. DEBRIDE WEEKLY OR MORE OFTEN PRN : - Evaluate patient in center weekly to assess wound bed and margins for need for debridement. - Mechanical debridement: Stimulate and/or maintain acute phase of wound healing by reducing bacterial burden and devitalized/non-viable tissue. - Debridement by any method to remove devitalized/necrotic tissue to promote healing and prevent further complications. Goal is to stimulate and/or maintain acute phase of wound healing by reducing bacterial burden and devitalized/non-viable tissue. 04. OPTIMIZE GLUCOSE CONTROL and NUTRITION : - Reviewed, not applicable 05. OFFLOADING PLAN : - Reviewed, not applicable 06. OPTIMIZE HOST FACTORS: - Assess and review patient history for wound etiology, co-morbid conditions, medication regime, and smoking history. 07. DRESSING SELECTION : - Evaluate for dressing-related factors, such as availability, wear time, adaptability and use to better optimize wound healing and patient compliance. 08. ADVANCED MODALITIES : - Evaluate for appropriateness of Cellular Tissue Product therapy. 09. FALL PREVENTION : - Reviewed, not applicable 10. PAIN MANAGEMENT : - Complete pain assessment - Prepare patient to set reasonable expectations prior to procedure. 11. MEASURABLE GOALS for Wound Healing and/or Hyperbaric Oxygen Therapy : - Less Drainage - Decrease Inflammation - Decrease pain - Decrease Wound Dimensions - Wound Closure - Improve quality of life - Improve/promote tissue viability and perfusion - To improve potential to heal 12. DURATION/FREQUENCY of Wound Care Visits : - 1x weekly for 30 days Electronic Signature(s) Signed By: Date: Rafa Nguyen MD 07/07/2022 10:16:21 (PT) Entered By: Rafa Nguyen MD on 07/07/2022 10:15:43 (PT)
== END ==
PROVIDERS: PCP Family Medicine; Referring Provider Family Medicine; Visit Provider Surgery
DX: L95.0 Livedoid vasculitis (principal); L97.812 Non-pressure chronic ulcer of other part of right lower leg with fat layer exposed; L97.822 Non-pressure chronic ulcer of other part of left lower leg with fat layer exposed; L97.322 Non-pressure chronic ulcer of left ankle with fat layer exposed; L08.9 Local infection of the skin and subcutaneous tissue, unspecified; A49.02 Methicillin resistant Staphylococcus aureus infection, unspecified site; L53.9 Erythematous condition, unspecified; R60.0 Localized edema; Z79.01 Long term (current) use of anticoagulants; M79.661 Pain in right lower leg; M79.662 Pain in left lower leg
CPT/HCPCS: 99213; 99214

== ENCOUNTER → 2022-07-21 09:01 | Outpatient (CLI) | payer MEDICARE, SELFPAY | PROVIDERS: PCP Family Medicine; Referring Provider Physician Assistant; Visit Provider Surgery | DX: L95.0 Livedoid vasculitis (principal); L97.322 Non-pressure chronic ulcer of left ankle with fat layer exposed; L97.822 Non-pressure chronic ulcer of other part of left lower leg with fat layer exposed; L97.812 Non-pressure chronic ulcer of other part of right lower leg with fat layer exposed; L08.9 Local infection of the skin and subcutaneous tissue, unspecified; M79.604 Pain in right leg; M79.605 Pain in left leg | CPT/HCPCS: 99212; 99213 ==

== ENCOUNTER → 2022-08-04 08:50 | Outpatient (CLI) | payer MEDICARE, SELFPAY | PROVIDERS: PCP Family Medicine; Referring Provider Family Medicine; Visit Provider Surgery | DX: L95.0 Livedoid vasculitis (principal); L97.322 Non-pressure chronic ulcer of left ankle with fat layer exposed; L97.822 Non-pressure chronic ulcer of other part of left lower leg with fat layer exposed; L97.812 Non-pressure chronic ulcer of other part of right lower leg with fat layer exposed; L08.9 Local infection of the skin and subcutaneous tissue, unspecified; M79.604 Pain in right leg; M79.605 Pain in left leg | CPT/HCPCS: 29580; 99213 ==

== ENCOUNTER → 2022-08-06 08:57 | Outpatient (CLI) | payer MEDICARE, SELFPAY | PROVIDERS: PCP Family Medicine; Referring Provider Physician Assistant; Visit Provider Physician Assistant | DX: L95.9 Vasculitis limited to the skin, unspecified (principal); L97.322 Non-pressure chronic ulcer of left ankle with fat layer exposed; L97.822 Non-pressure chronic ulcer of other part of left lower leg with fat layer exposed; L97.812 Non-pressure chronic ulcer of other part of right lower leg with fat layer exposed; R60.0 Localized edema | CPT/HCPCS: 29580 ==

== ENCOUNTER → 2022-08-09 10:55 | Outpatient (CLI) | payer MEDICARE, SELFPAY | PROVIDERS: PCP Family Medicine; Referring Provider Family Medicine; Visit Provider Surgery | DX: L95.0 Livedoid vasculitis (principal); L97.322 Non-pressure chronic ulcer of left ankle with fat layer exposed; L97.822 Non-pressure chronic ulcer of other part of left lower leg with fat layer exposed; L97.812 Non-pressure chronic ulcer of other part of right lower leg with fat layer exposed; R60.0 Localized edema; Z72.0 Tobacco use | CPT/HCPCS: 87070; 87075; 87205; 99212; 99213 ==

== ENCOUNTER → 2022-08-19 11:51 | Outpatient (CLI) | payer MEDICARE, SELFPAY | PROVIDERS: PCP Family Medicine; Referring Provider Family Medicine; Visit Provider Surgery | DX: L95.0 Livedoid vasculitis (principal); I87.2 Venous insufficiency (chronic) (peripheral); L08.9 Local infection of the skin and subcutaneous tissue, unspecified; L97.322 Non-pressure chronic ulcer of left ankle with fat layer exposed; L97.822 Non-pressure chronic ulcer of other part of left lower leg with fat layer exposed; L97.812 Non-pressure chronic ulcer of other part of right lower leg with fat layer exposed; Z72.0 Tobacco use | CPT/HCPCS: 87070; 87075; 87205; 99213 ==

== ENCOUNTER → 2022-08-25 08:54 | Outpatient (CLI) | payer MEDICARE, SELFPAY | PROVIDERS: PCP Family Medicine; Referring Provider Physician Assistant; Visit Provider Surgery | DX: L95.0 Livedoid vasculitis (principal); L97.322 Non-pressure chronic ulcer of left ankle with fat layer exposed; L97.822 Non-pressure chronic ulcer of other part of left lower leg with fat layer exposed; L97.812 Non-pressure chronic ulcer of other part of right lower leg with fat layer exposed; L08.9 Local infection of the skin and subcutaneous tissue, unspecified | CPT/HCPCS: 99213; 99214 ==

== ENCOUNTER → 2022-09-08 08:55 | Outpatient (CLI) | payer MEDICARE, SELFPAY | PROVIDERS: PCP Family Medicine; Referring Provider Family Medicine; Visit Provider Surgery | DX: L95.0 Livedoid vasculitis (principal); L08.9 Local infection of the skin and subcutaneous tissue, unspecified; L97.322 Non-pressure chronic ulcer of left ankle with fat layer exposed; L97.822 Non-pressure chronic ulcer of other part of left lower leg with fat layer exposed; L97.812 Non-pressure chronic ulcer of other part of right lower leg with fat layer exposed | CPT/HCPCS: 87070; 87075; 87077; 87186; 87205; 99213 ==

== ENCOUNTER 2022-09-19 15:03 | Emergency (ER) | payer MEDICARE, SELFPAY ==
[2022-09-19 15:04] VITALS: BP 155/94; PULSE 88; RESP 18; TEMP 37.1; O2SAT 97; BMI 24.6
--- NOTE | 2022-09-19 15:28 | ED.WOUNDLAC ---
HPI - Wound/Laceration General Chief Complaint: Wound/Laceration Stated Complaint: THINKS INFECTION IN LEGS Time Seen by Provider: 09/19/22 15:14 Source: patient and family Mode of arrival: Ambulatory History of Present Illness HPI narrative: Patient is a 57-year-old male. Does have a history of vasculitis. He is had it since he has been 13 years old. Has had issues with it in the past. He states that sometimes the ulcerations become worse than others. He is not currently on antibiotics. He does see wound care. He states that for the past couple days he feels like the ulcerations have been worsening. He does have a foul smell to it. He is in quite a bit of discomfort. He does not have pain medication at home. In the past he has been on both Bactrim and Levaquin which he states seems to have almost completely taking care of his symptoms. He does change his bandages per the recommendation of wound care. He denies any fevers. Related Data Home Medications Medication Instructions Recorded Confirmed tadalafil 20 mg tablet 20 mg PO DAILY 05/17/22 05/17/22 Previous Rx's Medication Instructions Recorded atorvastatin 20 mg tablet (Lipitor) 20 mg PO BEDTIME cholesterol #90 05/17/22 tabs lisinopril 20 mg tablet 20 mg PO DAILY #90 tabs 05/17/22 gentamicin 0.1 % topical cream 1 applic topical DAILY #15 grams 09/19/22 hydrocodone 5 mg-acetaminophen 325 1 tab PO Q6H PRN pain #14 tabs 09/19/22 mg tablet levofloxacin 500 mg tablet 500 mg PO DAILY 10 days #10 tabs 09/19/22 sulfamethoxazole 800 1 tab PO BID 7 days #14 tabs 09/19/22 mg-trimethoprim 160 mg tablet (Bactrim DS) Allergies Allergy/AdvReac Type Severity Reaction Status Date / Time adhesive tape Allergy blistering Verified 09/19/22 15:04 and sores bacitracin Allergy makes skin Verified 09/19/22 15:04 [From Neosporin rot ([id number])] doxycycline Allergy Verified 09/19/22 15:04 neomycin Allergy makes skin Verified 09/19/22 15:04 [From Neosporin rot ([id number])] polymyxin B Allergy makes skin Verified 09/19/22 15:04 [From Neosporin rot ([id number])] Review of Systems Constitutional Constitutional: Reports system reviewed and no additional complaints, except as documented Integumentary/Breasts Skin/Breast: Reports system reviewed and no additional complaints, except as documented Neurologic Neurologic: Reports system reviewed and no additional complaints, except as documented Hematologic/Lymphatic On Anticoagulants: No Patient History Medical History Anxiety (~2005) Benign essential HTN Coagulation disorder Deep vein thrombosis Depression (~2005) Foot pain GERD (gastroesophageal reflux disease) (~1989) Headache (~1989) Hearing loss (~1999) Heartburn (~1989) Human papilloma virus (~2014) Hyperlipidemia Livedo vasculitis Migraines (~1989) 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 Peripheral neuropathy Substance abuse (~2005) Tinnitus (~1999) Tobacco dependence Vasculopathy Wart of hand Wears glasses Surgical History (Updated 06/28/22 @ 21:45 by Haven Vega) Anesthesia History of hernia surgery (~2001) Chavies teeth removed (~1997) Family History (Updated 06/28/22 @ 21:48 by Haven Vega) Father No problems noted. Mother No problems noted. Grandfather Cancer Grandmother Stroke Grandfather Stroke Grandmother Stroke Social History Smoking Status: Current every day smoker Smoking Status: Current every day smoker alcohol intake frequency: 0-2 drinks per day Substance Use Type: marijuana Exam Initial Vital Signs Initial Vital Signs: Vital Signs Temperature 98.7 F 09/19/22 15:04 Pulse Rate 88 09/19/22 15:04 Respiratory Rate 18 09/19/22 15:04 Blood Pressure 155/94 H 09/19/22 15:04 Pulse Oximetry 97 09/19/22 15:04 Oxygen Delivery Method Room Air 09/19/22 15:04 Const General: cooperative, comfortable and No ill appearing HENMT Head: normal to inspection and normocephalic Skin Other: Patient does have multiple ulcerations at various depths on both of his legs. There is some surrounding erythema from the area. No fevers. No abscesses seen. Neuro General: patient alert, patient awake and moves all extremities Extrem Other: Ulcerations bilateral lower extremities Course Orders Ordered: ED Orders 09/19/22 15:46 Basic Metabolic Panel Stat Complete Blood Count AUTO DIFF Stat Lactate (Lactic Acid) Stat Wound Culture and Gram Stain Stat Wound Culture and Gram Stain Stat 09/19/22 16:00 Blood Culture Stat Discontinued Medications Hydrocodone Bitart/Acetaminophen (Hydrocodone/Acet 5/325 Tablet) 1 tab PO NOW ONE Stop: 09/19/22 17:02 Last Admin: 09/19/22 17:06 Dose: 1 tab Documented By: ZHANNA Hydromorphone HCl (Hydromorphone 1 Mg Inj) 1 mg IM NOW ONE Stop: 09/19/22 15:30 Last Admin: 09/19/22 15:44 Dose: 1 mg Documented By: CTS Hydromorphone HCl (Hydromorphone 1 Mg Inj) 1 mg IV NOW ONE Stop: 09/19/22 15:37 Last Admin: 09/19/22 15:45 Dose: 1 mg Documented By: CTS Vital Signs Vital signs: Vital Signs - 8 hr 09/19/22 15:04 09/19/22 17:36 Temperature 98.7 F 97.7 F Pulse Rate 88 83 Respiratory Rate 18 18 Blood Pressure 155/94 H 137/91 H Pulse Oximetry 97 96 Oxygen Delivery Method Room Air Room Air MDM - Wound/Laceration Lab Data Attestation: I reviewed the patient's lab results. 09/19/22 15:46 09/19/22 15:46 Labs: Lab Results 09/19/22 09/19/22 09/19/22 Range/Units 15:46 15:46 15:46 WBC 9.3 (4.5-11.0) X10^3/uL RBC 4.49 L (4.5-5.9) X10^6/uL Hgb 13.8 (13.5-17.5) g/dL Hct 39.8 L (41-53) % MCV 88.7 (80-100) fL MCH 30.8 (26-34) PG MCHC 34.8 (30-36) % RDW 13.0 (11.6-14.8) % Plt Count 360 (150-400) X10^3/uL Neut % (Auto) 73.0 (50-75) % Lymph % (Auto) 15.6 L (25-40) % [place] % (Auto) 8.1 (3-14) % Eos % (Auto) 2.5 (2-4) % Baso % (Auto) 0.8 (0-2) % Neut # (Auto) 6800 (9386-8321) /uL Lymph # (Auto) 1500 (8479-3172) /uL [place] # (Auto) 800 (0-900) /uL Eos # (Auto) 200 (0-450) /uL Baso # (Auto) 100 (0-100) /uL Sodium 137 (137-145) mmol/L Potassium 4.0 (3.4-5.1) mmol/L Chloride 103 (98-107) mmol/L Carbon Dioxide 28 (22-32) mmol/L BUN 20 (9-20) mg/dL Creatinine 0.81 (0.66-1.25) mg/dL Estimated GFR > 60 (>60) mL/min BUN/Creatinine Ratio 24.7 H (6-22) Glucose 131 H (70-100) mg/dL Lactate 1.6 (0.7-2.1) mmol/L Calcium 9.0 (8.4-10.2) mg/dL MDM Narrative Medical decision making narrative: Labs are unremarkable. If his medical record shows that he has had frequent cultures of his lower extremities. The prior infections have been susceptible to Levaquin any states that Levaquin including Bactrim has been successful in the past. We discussed potential admission to the hospital for IV antibiotics and wound care versus discharge home with oral antibiotics. After this discussion the patient would like to be discharged home. I will put him on Bactrim and Levaquin as this seems to have for him. I did refill his gentamicin topical ointment. Was also given pain medication. He does have a follow-up with and care at his scheduled. He was given return precautions and follow-up instructions. He expressed understanding and agreement. Discharge Plan Departure Patient Disposition: Home Clinical Impression: Cellulitis Activity Restrictions/Additional Instructions: Recommend that you continue to take all of your medications as directed. Keep all of your scheduled medical appointments. Return to the emergency department for new or worsening symptoms. Prescriptions: New hydrocodone-acetaminophen 5-325 mg tablet 1 tab PO Q6H PRN (Reason: pain) Qty: 14 0RF levofloxacin 500 mg tablet 500 mg PO DAILY 10 Days Qty: 10 0RF sulfamethoxazole-trimethoprim [Bactrim DS] 800-160 mg tablet 1 tab PO BID 7 Days Qty: 14 0RF gentamicin 0.1 % cream 1 applic topical DAILY Qty: 15 2RF No Action tadalafil 20 mg tablet 20 mg PO DAILY Patient Comments: take 1 tablet by mouth once daily if needed INTERCOURSE NOT TO EXCEED 20 MG IN 24 HOURS lisinopril 20 mg tablet 20 mg PO DAILY Qty: 90 3RF atorvastatin [Lipitor] 20 mg tablet 20 mg PO BEDTIME Qty: 90 3RF Referrals: Trevin Morales DO [Primary Care Provider] - Stand Alone Forms: Patient Portal/API
[2022-09-19] MEDS: HYDROMORPHONE 1 MG INJ IM (15:44)
[2022-09-19] MEDS: HYDROMORPHONE 1 MG INJ IV (15:45)
[2022-09-19 15:53] LABS: Add Manual Diff / Slide Review NO; Basophils Absolute Auto 100 /uL (0-100); Basophils Percent Auto 0.8 % (0-2); Eosinophils Absolute Auto 200 /uL (0-450); Eosinophils Percent Auto 2.5 % (2-4); Hematocrit 39.8 % (41-53); Hemoglobin 13.8 g/dL (13.5-17.5); Lymphocytes Absolute Auto 1500 /uL (1100-4500); Lymphocytes Percent Auto 15.6 % (25-40); Mean Corpuscular HGB Conc 34.8 % (30-36); Mean Corpuscular Hemoglobin 30.8 PG (26-34); Mean Corpuscular Volume 88.7 fL (80-100); Monocytes Absolute Auto 800 /uL (0-900); Monocytes Percent Auto 8.1 % (3-14); Neutrophils Absolute Auto 6800 /uL (1500-7000); Platelet Count 360 X10^3/uL (150-400); Red Blood Cell Count 4.49 X10^6/uL (4.5-5.9); White Blood Cell Count 9.3 X10^3/uL (4.5-11.0)
[2022-09-19 16:11] LABS: BUN Creatinine Ratio 24.7 (6-22); Blood Urea Nitrogen 20 mg/dL (9-20); Carbon Dioxide 28 mmol/L (22-32); Chloride 103 mmol/L (98-107); Estimated Glomerular Filt Rate > 60 mL/min (>60); Glucose 131 mg/dL (70-100); HEMOLYSIS < 15 (0-50); Sodium 137 mmol/L (137-145)
[2022-09-19 16:15] LABS: Lactate (Lactic Acid) 1.6 mmol/L (0.7-2.1)
[2022-09-19] MEDS: HYDROCODONE/ACET 5/325 TABLET 1 TAB PO (17:06)
[2022-09-19 17:36] VITALS: BP 137/91; PULSE 83; RESP 18; TEMP 36.5; O2SAT 96
== END 2022-09-19 17:36 | disposition home or self-care (01) ==
PROVIDERS: Emergency Provider Emergency Medicine; PCP Family Medicine
DX: L03.116 Cellulitis of left lower limb (principal); L03.115 Cellulitis of right lower limb
CPT/HCPCS: 36415; 80048; 83605; 85025; 87040; 87070; 87075; 87077; 87186; 87205; 96372; 96374; 99284; J1170

== ENCOUNTER → 2022-09-28 10:11 | Outpatient (CLI) | payer MEDICARE, SELFPAY | PROVIDERS: PCP Family Medicine; Referring Provider Physician Assistant; Visit Provider Surgery | DX: L95.0 Livedoid vasculitis (principal); I87.2 Venous insufficiency (chronic) (peripheral); L08.9 Local infection of the skin and subcutaneous tissue, unspecified; L97.322 Non-pressure chronic ulcer of left ankle with fat layer exposed; L97.822 Non-pressure chronic ulcer of other part of left lower leg with fat layer exposed; L97.812 Non-pressure chronic ulcer of other part of right lower leg with fat layer exposed; L97.312 Non-pressure chronic ulcer of right ankle with fat layer exposed; Z72.0 Tobacco use | CPT/HCPCS: 99213 ==

== ENCOUNTER → 2022-10-19 09:41 | Outpatient (CLI) | payer MEDICARE, SELFPAY | PROVIDERS: PCP Family Medicine; Referring Provider Family Medicine; Visit Provider Surgery | DX: L95.0 Livedoid vasculitis (principal); I87.2 Venous insufficiency (chronic) (peripheral); L97.322 Non-pressure chronic ulcer of left ankle with fat layer exposed; L97.822 Non-pressure chronic ulcer of other part of left lower leg with fat layer exposed; L97.312 Non-pressure chronic ulcer of right ankle with fat layer exposed; Z72.0 Tobacco use; L08.9 Local infection of the skin and subcutaneous tissue, unspecified; R60.0 Localized edema; L53.9 Erythematous condition, unspecified | CPT/HCPCS: 99213 ==

== ENCOUNTER → 2022-11-09 08:47 | Outpatient (CLI) | payer MEDICARE, SELFPAY | PROVIDERS: PCP Family Medicine; Referring Provider Physician Assistant; Visit Provider Surgery | DX: L95.0 Livedoid vasculitis (principal); L97.322 Non-pressure chronic ulcer of left ankle with fat layer exposed; L97.822 Non-pressure chronic ulcer of other part of left lower leg with fat layer exposed; L97.312 Non-pressure chronic ulcer of right ankle with fat layer exposed | CPT/HCPCS: 29580; 99213 ==

== ENCOUNTER → 2022-11-30 09:00 | Outpatient (CLI) | payer MEDICARE, SELFPAY | PROVIDERS: PCP Family Medicine; Referring Provider Physician Assistant; Visit Provider Surgery | DX: L95.0 Livedoid vasculitis (principal); L97.812 Non-pressure chronic ulcer of other part of right lower leg with fat layer exposed; L97.822 Non-pressure chronic ulcer of other part of left lower leg with fat layer exposed; L97.512 Non-pressure chronic ulcer of other part of right foot with fat layer exposed; L97.522 Non-pressure chronic ulcer of other part of left foot with fat layer exposed | CPT/HCPCS: 99213; 99214 ==

== ENCOUNTER → 2022-12-21 08:36 | Outpatient (CLI) | payer MEDICARE, SELFPAY | PROVIDERS: PCP Family Medicine; Referring Provider Physician Assistant; Visit Provider Surgery | DX: I87.2 Venous insufficiency (chronic) (peripheral) (principal); L97.512 Non-pressure chronic ulcer of other part of right foot with fat layer exposed; L97.522 Non-pressure chronic ulcer of other part of left foot with fat layer exposed; L97.312 Non-pressure chronic ulcer of right ankle with fat layer exposed; L97.322 Non-pressure chronic ulcer of left ankle with fat layer exposed | CPT/HCPCS: 87070; 87075; 87205; 99213 ==

== ENCOUNTER → 2023-01-12 10:10 | Outpatient (CLI) | payer MEDICARE, SELFPAY | PROVIDERS: PCP Family Medicine; Referring Provider Physician Assistant; Visit Provider Surgery | DX: L95.0 Livedoid vasculitis (principal); L97.812 Non-pressure chronic ulcer of other part of right lower leg with fat layer exposed; L97.822 Non-pressure chronic ulcer of other part of left lower leg with fat layer exposed; L97.512 Non-pressure chronic ulcer of other part of right foot with fat layer exposed; L97.522 Non-pressure chronic ulcer of other part of left foot with fat layer exposed; I87.2 Venous insufficiency (chronic) (peripheral); Z72.0 Tobacco use; L08.9 Local infection of the skin and subcutaneous tissue, unspecified | CPT/HCPCS: 99213 ==

== ENCOUNTER → 2023-02-02 09:02 | Outpatient (CLI) | payer MEDICARE, SELFPAY | PROVIDERS: PCP Family Medicine; Referring Provider Physician Assistant; Visit Provider Surgery | DX: L97.812 Non-pressure chronic ulcer of other part of right lower leg with fat layer exposed (principal); L97.822 Non-pressure chronic ulcer of other part of left lower leg with fat layer exposed; L97.512 Non-pressure chronic ulcer of other part of right foot with fat layer exposed; L97.522 Non-pressure chronic ulcer of other part of left foot with fat layer exposed; I87.2 Venous insufficiency (chronic) (peripheral); Z72.0 Tobacco use; R60.0 Localized edema | CPT/HCPCS: 99213; 99214 ==

== ENCOUNTER → 2023-03-18 14:16 | Outpatient (CLI) | payer MEDICARE, SELFPAY | LOC: WC 14:18 | PROVIDERS: PCP Family Medicine; Referring Provider Physician Assistant; Visit Provider Physician Assistant | DX: L97.322 Non-pressure chronic ulcer of left ankle with fat layer exposed (principal); L95.0 Livedoid vasculitis; I87.2 Venous insufficiency (chronic) (peripheral); R60.0 Localized edema; L53.9 Erythematous condition, unspecified; F17.210 Nicotine dependence, cigarettes, uncomplicated | CPT/HCPCS: 97597; 99212; 99214 ==

== ENCOUNTER → 2023-03-31 14:32 | Outpatient (CLI) | payer MEDICARE, SELFPAY ==
[2023-03-31 15:31] LABS: Add Manual Diff / Slide Review NO; Basophils Absolute Auto 100 /uL (0-100); Basophils Percent Auto 0.9 % (0-2); Eosinophils Absolute Auto 200 /uL (0-450); Eosinophils Percent Auto 3.8 % (2-4); Hematocrit 42.8 % (41-53); Hemoglobin 14.6 g/dL (13.5-17.5); Lymphocytes Absolute Auto 1400 /uL (1100-4500); Lymphocytes Percent Auto 24.8 % (25-40); Mean Corpuscular HGB Conc 34.1 % (30-36); Mean Corpuscular Hemoglobin 30.8 PG (26-34); Mean Corpuscular Volume 90.3 fL (80-100); Monocytes Absolute Auto 500 /uL (0-900); Monocytes Percent Auto 9.2 % (3-14); Neutrophils Absolute Auto 3500 /uL (1500-7000); Neutrophils Percent Auto 61.3 % (50-75); Platelet Count 329 X10^3/uL (150-400); Red Blood Cell Count 4.74 X10^6/uL (4.5-5.9); Red Cell Distribution Width 13.4 % (11.6-14.8); White Blood Cell Count 5.7 X10^3/uL (4.5-11.0)
[2023-03-31 15:38] LABS: Hemoglobin A1C% w Est Avg Glu 5.6 % (4.0-6.0)
[2023-03-31 17:09] LABS: Alanine Aminotransferase 28 IU/L (<50); Albumin 4.2 g/dL (3.5-5.0); Albumin Globulin Ratio 1.3 (1.0-2.8); Alkaline Phosphatase 77 U/L (38-126); Aspartate Aminotransferase 31 IU/L (17-59); BUN Creatinine Ratio 23.9 (6-22); Bilirubin Total 0.4 mg/dL (0.2-1.3); Blood Urea Nitrogen 22 mg/dL (9-20); Calcium 9.5 mg/dL (8.4-10.2); Carbon Dioxide 27 mmol/L (22-32); Chloride 103 mmol/L (98-107); Estimated Glomerular Filt Rate > 60 mL/min (>60); Globulin 3.2 g/dL (1.7-4.1); Glucose 105 mg/dL (70-100); HEMOLYSIS < 15 (0-50); Lipase 65 U/L (23-300); Potassium 4.9 mmol/L (3.4-5.1); Sodium 139 mmol/L (137-145); Total Protein 7.4 g/dL (6.3-8.2)
[2023-03-31 18:32] LABS: HIV 1 & 2 Ab/Ag 4th Gen Combo NEGATIVE (NEGATIVE); Hep C Virus Ab w/Reflex Quant NEGATIVE s/c (NEGATIVE)
== END ==
PROVIDERS: PCP Family Medicine; Referring Provider Family Medicine; Visit Provider Family Medicine
DX: F17.200 Nicotine dependence, unspecified, uncomplicated (principal); R73.01 Impaired fasting glucose; I10 Essential (primary) hypertension; R07.89 Other chest pain; Z11.59 Encounter for screening for other viral diseases; Z11.4 Encounter for screening for human immunodeficiency virus [HIV]
CPT/HCPCS: 36415; 80053; 83036; 83690; 85025; 86803; 87389

== ENCOUNTER → 2023-04-14 08:40 | Outpatient (CLI) | payer MEDICARE, SELFPAY | PROVIDERS: PCP Family Medicine; Referring Provider Physician Assistant; Visit Provider Surgery | DX: L97.812 Non-pressure chronic ulcer of other part of right lower leg with fat layer exposed (principal); L97.822 Non-pressure chronic ulcer of other part of left lower leg with fat layer exposed; L97.322 Non-pressure chronic ulcer of left ankle with fat layer exposed; L95.0 Livedoid vasculitis; R60.0 Localized edema; L53.9 Erythematous condition, unspecified; F17.210 Nicotine dependence, cigarettes, uncomplicated; R23.3 Spontaneous ecchymoses; Z79.01 Long term (current) use of anticoagulants; Z79.52 Long term (current) use of systemic steroids | CPT/HCPCS: 87070; 87075; 87077; 87147; 87186; 87205; 99213; 99215 ==

== ENCOUNTER → 2023-04-14 15:46 | Outpatient (CLI) | payer MEDICARE, SELFPAY ==
--- NOTE | 2023-04-19 07:42 | DI.NM.S_ITS ---
DATE OF SERVICE: 04/14/2023 PROCEDURE: Exercise treadmill stress testing without imaging. ORDERING PROVIDER: Trevin Morales DO INDICATIONS: The patient is a 57-year-old male with recent atypical chest discomfort and an abnormal ECG. FINDINGS: 1. The patient was able to exercise for 9 minutes 12 seconds on a standard Avtar protocol suggesting average exercise capacity with an RAHAT of +1%, achieving 10.1 METs. 2. He had a normal heart rate and blood pressure response to exercise, achieving a maximum heart rate of 142 BPM (87% of his predicted maximum). 3. He had no chest discomfort or other anginal symptoms. 4. His resting ECG is normal with a sinus rhythm at [address] segments. There are no significant ST-segment shifts or arrhythmias with stress. IMPRESSION: 1. Normal exercise treadmill stress test for ischemia. 2. Average exercise capacity without angina or arrhythmias. Nolberto Nowak - NICOLE/janessa/kt doc#: [id number]/job#: [id number] dd: 04/15/2023 17:14:00 dt: 04/16/2023 04:03:00 DICTATING /COPIES TO: Andrew Bar MD; Trevin Morales DO COPIES MNE: SERG;
== END ==
PROVIDERS: PCP Family Medicine; Referring Provider Family Medicine; Visit Provider Family Medicine
DX: R07.89 Other chest pain (principal); I10 Essential (primary) hypertension; L97.812 Non-pressure chronic ulcer of other part of right lower leg with fat layer exposed; L97.822 Non-pressure chronic ulcer of other part of left lower leg with fat layer exposed; L97.322 Non-pressure chronic ulcer of left ankle with fat layer exposed; L95.0 Livedoid vasculitis; R60.0 Localized edema; L53.9 Erythematous condition, unspecified; R23.3 Spontaneous ecchymoses; F17.210 Nicotine dependence, cigarettes, uncomplicated; Z79.01 Long term (current) use of anticoagulants; Z79.52 Long term (current) use of systemic steroids
CPT/HCPCS: 87070; 87075; 87077; 87147; 87186; 87205; 93017; 99215

== ENCOUNTER → 2023-06-06 14:43 | Outpatient (CLI) | payer MEDICARE, SELFPAY | PROVIDERS: PCP Family Medicine; Referring Provider Family Medicine; Visit Provider Surgery | DX: L97.822 Non-pressure chronic ulcer of other part of left lower leg with fat layer exposed (principal); L97.322 Non-pressure chronic ulcer of left ankle with fat layer exposed; L97.522 Non-pressure chronic ulcer of other part of left foot with fat layer exposed; L95.0 Livedoid vasculitis; L53.9 Erythematous condition, unspecified; M79.672 Pain in left foot; F17.210 Nicotine dependence, cigarettes, uncomplicated; Z79.2 Long term (current) use of antibiotics | CPT/HCPCS: 99213; 99215 ==

== ENCOUNTER → 2023-06-20 10:47 | Outpatient (CLI) | payer MEDICARE, SELFPAY | LOC: WC 10:48 | PROVIDERS: PCP Family Medicine; Referring Provider Physician Assistant; Visit Provider Surgery ==

== ENCOUNTER → 2023-06-23 12:58 | Outpatient (CLI) | payer MEDICARE, SELFPAY | LOC: WC 12:59 | PROVIDERS: PCP Family Medicine; Referring Provider Physician Assistant; Visit Provider Surgery | DX: L97.822 Non-pressure chronic ulcer of other part of left lower leg with fat layer exposed (principal); L97.322 Non-pressure chronic ulcer of left ankle with fat layer exposed; L97.522 Non-pressure chronic ulcer of other part of left foot with fat layer exposed; L95.0 Livedoid vasculitis; R60.0 Localized edema; L53.9 Erythematous condition, unspecified; F17.210 Nicotine dependence, cigarettes, uncomplicated; M79.672 Pain in left foot | CPT/HCPCS: 99213 ==

== ENCOUNTER → 2023-07-22 09:10 | Outpatient (CLI) | payer MEDICARE, SELFPAY | PROVIDERS: PCP Family Medicine; Referring Provider Physician Assistant; Visit Provider Physician Assistant | DX: L97.322 Non-pressure chronic ulcer of left ankle with fat layer exposed (principal); L97.522 Non-pressure chronic ulcer of other part of left foot with fat layer exposed; L97.822 Non-pressure chronic ulcer of other part of left lower leg with fat layer exposed; L53.9 Erythematous condition, unspecified; R60.0 Localized edema; L95.0 Livedoid vasculitis; L08.89 Other specified local infections of the skin and subcutaneous tissue | CPT/HCPCS: 87070; 87075; 87205; 99213; 99214 ==

== ENCOUNTER → 2023-09-02 08:57 | Outpatient (CLI) | payer MEDICARE, SELFPAY | PROVIDERS: PCP Family Medicine; Referring Provider Physician Assistant; Visit Provider Physician Assistant | DX: L97.322 Non-pressure chronic ulcer of left ankle with fat layer exposed (principal); L97.522 Non-pressure chronic ulcer of other part of left foot with fat layer exposed; L97.822 Non-pressure chronic ulcer of other part of left lower leg with fat layer exposed; L97.512 Non-pressure chronic ulcer of other part of right foot with fat layer exposed; L95.0 Livedoid vasculitis; L53.9 Erythematous condition, unspecified; R60.0 Localized edema; L08.89 Other specified local infections of the skin and subcutaneous tissue; F17.210 Nicotine dependence, cigarettes, uncomplicated | CPT/HCPCS: 87070; 87075; 87077; 87147; 87186; 87205; 99213; 99214 ==

== ENCOUNTER → 2023-09-30 09:00 | Outpatient (CLI) | payer MEDICARE, SELFPAY | PROVIDERS: PCP Family Medicine; Referring Provider Physician Assistant; Visit Provider Physician Assistant | DX: L97.322 Non-pressure chronic ulcer of left ankle with fat layer exposed (principal); L97.522 Non-pressure chronic ulcer of other part of left foot with fat layer exposed; L97.822 Non-pressure chronic ulcer of other part of left lower leg with fat layer exposed; L97.512 Non-pressure chronic ulcer of other part of right foot with fat layer exposed; L97.312 Non-pressure chronic ulcer of right ankle with fat layer exposed; L97.812 Non-pressure chronic ulcer of other part of right lower leg with fat layer exposed; L95.0 Livedoid vasculitis; R60.0 Localized edema; L53.9 Erythematous condition, unspecified; F17.210 Nicotine dependence, cigarettes, uncomplicated | CPT/HCPCS: 99214; 99215 ==

== ENCOUNTER → 2023-10-21 09:25 | Outpatient (CLI) | payer MEDICARE, SELFPAY | PROVIDERS: PCP Family Medicine; Referring Provider Physician Assistant; Visit Provider Physician Assistant | DX: L97.322 Non-pressure chronic ulcer of left ankle with fat layer exposed (principal); L97.522 Non-pressure chronic ulcer of other part of left foot with fat layer exposed; L97.512 Non-pressure chronic ulcer of other part of right foot with fat layer exposed; L97.312 Non-pressure chronic ulcer of right ankle with fat layer exposed; L97.812 Non-pressure chronic ulcer of other part of right lower leg with fat layer exposed; B95.62 Methicillin resistant Staphylococcus aureus infection as the cause of diseases classified elsewhere; R60.0 Localized edema; L53.9 Erythematous condition, unspecified; M25.571 Pain in right ankle and joints of right foot; F17.210 Nicotine dependence, cigarettes, uncomplicated; L95.0 Livedoid vasculitis | CPT/HCPCS: 11042; 11045; 87070; 87075; 87077; 87147; 87186; 87205; 97597 ==

== ENCOUNTER → 2023-10-22 12:05 | Outpatient (CLI) | payer MEDICARE, SELFPAY ==
[2023-10-22 14:05] LABS: Alanine Aminotransferase 19 IU/L (<50); Albumin Globulin Ratio 1.5 (1.0-2.8); Alkaline Phosphatase 88 U/L (38-126); Aspartate Aminotransferase 23 IU/L (17-59); Bilirubin Total 0.4 mg/dL (0.2-1.3); Blood Urea Nitrogen 24 mg/dL (9-20); Calcium 9.6 mg/dL (8.4-10.2); Carbon Dioxide 27 mmol/L (22-32); Chloride 104 mmol/L (98-107); Estimated Glomerular Filt Rate > 60 mL/min (>60); Globulin 2.7 g/dL (1.7-4.1); Glucose 97 mg/dL (70-100); HEMOLYSIS < 15 (0-50); Potassium 4.8 mmol/L (3.4-5.1); Sodium 138 mmol/L (137-145); Total Protein 6.7 g/dL (6.3-8.2)
== END ==
PROVIDERS: PCP Family Medicine; Referring Provider Physician Assistant; Visit Provider Physician Assistant
DX: L95.0 Livedoid vasculitis (principal)
CPT/HCPCS: 36415; 80053

== ENCOUNTER → 2023-11-09 13:22 | Outpatient (CLI) | payer MEDICARE, SELFPAY | LOC: WC 13:23 | PROVIDERS: PCP Family Medicine; Referring Provider Physician Assistant; Visit Provider Surgery | DX: L97.322 Non-pressure chronic ulcer of left ankle with fat layer exposed (principal); L97.312 Non-pressure chronic ulcer of right ankle with fat layer exposed; L97.522 Non-pressure chronic ulcer of other part of left foot with fat layer exposed; L95.0 Livedoid vasculitis; R60.0 Localized edema; L53.9 Erythematous condition, unspecified; Z79.2 Long term (current) use of antibiotics | CPT/HCPCS: 99213 ==

== ENCOUNTER → 2023-12-15 08:36 | Outpatient (CLI) | payer MEDICARE, SELFPAY | PROVIDERS: PCP Family Medicine; Referring Provider Physician Assistant; Visit Provider Surgery | DX: L97.322 Non-pressure chronic ulcer of left ankle with fat layer exposed (principal); L97.522 Non-pressure chronic ulcer of other part of left foot with fat layer exposed; L95.0 Livedoid vasculitis; L53.9 Erythematous condition, unspecified; R60.0 Localized edema; F17.210 Nicotine dependence, cigarettes, uncomplicated | CPT/HCPCS: 99213 ==

== ENCOUNTER → 2024-01-12 09:11 | Outpatient (CLI) | payer MEDICARE, SELFPAY | LOC: WC 09:12 | PROVIDERS: PCP Family Medicine; Referring Provider Family Medicine; Visit Provider Surgery | DX: L97.322 Non-pressure chronic ulcer of left ankle with fat layer exposed (principal); L97.512 Non-pressure chronic ulcer of other part of right foot with fat layer exposed; L97.522 Non-pressure chronic ulcer of other part of left foot with fat layer exposed; L95.0 Livedoid vasculitis; L53.9 Erythematous condition, unspecified; R21 Rash and other nonspecific skin eruption; M79.672 Pain in left foot; M79.671 Pain in right foot | CPT/HCPCS: 99213; 99214 ==

== ENCOUNTER → 2024-02-09 08:36 | Outpatient (CLI) | payer MEDICARE, SELFPAY | LOC: WC 08:52 | PROVIDERS: PCP Family Medicine; Referring Provider Physician Assistant; Visit Provider Surgery | DX: L97.322 Non-pressure chronic ulcer of left ankle with fat layer exposed (principal); L97.522 Non-pressure chronic ulcer of other part of left foot with fat layer exposed; L95.0 Livedoid vasculitis; R23.3 Spontaneous ecchymoses; R60.0 Localized edema; R21 Rash and other nonspecific skin eruption; F17.210 Nicotine dependence, cigarettes, uncomplicated | CPT/HCPCS: 99213; 99214 ==

== ENCOUNTER → 2024-03-29 08:16 | Outpatient (CLI) | payer MEDICARE, SELFPAY ==
--- NOTE | 2024-03-29 | OV.WND_ITS ---
PROGRESS NOTE DETAILS PATIENT NAME: ROHIT SIDDIQI PATIENT NUMBER: [id number] CLINICIAN: CLAUDINE VALERIO R.N. PATIENT DATE OF : 1965 PHYSICIAN / MACHINING SUPERVISOR: AYALACRYSTAL PATIENT SUBJECTIVE CHIEF COMPLAINT THIS INFORMATION WAS OBTAINED FROM THE PATIENT. I HAVE WOUNDS ON MY LEGS. ALLERGIES ADHESIVE TAPE (REACTION: BLISTERS), NEOSPORIN ([id number]) (REACTION: INFLAMED), NEOMYCIN (REACTION: INFLAMMATION), POLYMYXIN B (REACTION: INFLAMMATION), DOXYCYCLINE (REACTION: RASH/PRURITUS) HPI THIS INFORMATION WAS OBTAINED FROM THE PATIENT. THE FOLLOWING HPI ELEMENTS WERE DOCUMENTED FOR THE PATIENT'S WOUND: LOCATION: BLE DURATION: 02/18/24 CONTEXT: LIVEDOID VASCULOPATHY THE PATIENT IS A 58-YEAR-OLD MALE WHO RETURNS TODAY FOR READMISSION TO THE WOUND CENTER FOR EVALUATION AND TREATMENT OF MULTIPLE NEW ULCERS ON BILATERAL LOWER EXTREMITIES. THE PATIENT REPORTS THAT THE ULCERS ARE VERY PAINFUL AND HAVE BEEN DRAINING SOME PURULENT FLUID. HE HAS NOTICED SOME PERIWOUND ERYTHEMA. HE HAS BEEN DRESSING THE ULCERS WITH DRY GAUZE. THE PATIENT REPORTS THAT HE IS INTERMITTENTLY USING ALEJANDRO WRAPS AND TUBIGRIP FOR COMPRESSION. 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 HE HAS PREVIOUSLY UNDERGONE AN EXTENSIVE WORKUP AT THE DERMATOLOGY CLINIC AT [facility] WHERE THE DIAGNOSIS WAS ESTABLISHED. THE PATIENT HAS UNDERGONE A WIDE VARIETY OF TREATMENTS INCLUDING COMBINATIONS OF ANTICOAGULANTS, ANTI-PLATELET MEDICATIONS, FIBRINOLYTIC THERAPIES, AND ANABOLIC STEROIDS WITHOUT SUCCESS AND HIS WOUNDS ARE NOW CONSIDERED PALLIATIVE. THE ONLY TREATMENT THAT PROVIDED ANY BENEFIT WAS AN OFF LABEL USE OF HYPERBARIC OXYGEN SEVERAL YEARS AGO. PATIENT HAS DECLINED ANY FURTHER WORKUP OR ANY FURTHER ATTEMPTS AT CURATIVE TREATMENT. ULCERS DO SEEM TO FLUCTUATE IN SEVERITY AND THE PATIENT HAS NEVER BEEN ABLE TO IDENTIFY ANY FACTORS THAT SEEM TO MAKE THEM WORSE. LINEZOLID, LEVAQUIN, AND BACTRIM HAVE HELPED IN THE PAST. PATIENT REMAINS A CURRENT EVERY DAY SMOKER. HE HAS STOPPED SMOKING IN THE PAST AND THIS HAD NO EFFECT ON ULCER HEALING. HE DENIES HAVING ANY FEVER OR CHILLS. NO OTHER CHANGES IN OVERALL HEALTH. HE WAS LAST SEEN AT THE WOUND CENTER FEBRUARY 09, 2024. PREVIOUS TESTIN10/21/23: CULTURE MRSA 09/02/23: CULTURE MRSA, RX BACTRIM 07/22/23: CULTURE NO GROWTH 06/06/23: CULTURES GREW STAPHYLOCOCCUS AUREUS AND CITROBACTER DIVERSUS 03/31/23: WBC 5.7, HEMOGLOBIN 14.6, HCT 42.8 ELECTROLYTES UNREMARKABLE, LFTS NORMAL 09/19/22: CULTURES GREW MORGANELLI MORGANII AND ENTEROCOCCUS FAECALIS. 09/19/22: WBC 9.3, HEMOGLOBIN 13.8, HCT 39.8, ELECTROLYTES NORMAL, GFR GREATER THAN 60 ROHIT SIDDIQI [id number] 1965 FAMILY HISTORY THIS INFORMATION WAS OBTAINED FROM THE PATIENT. CANCER- MOTHER, MATERNAL GRANDPARENTS, PATERNAL GRANDPARENTS HEART DISEASE- FATHER KIDNEY DISEASE- SIBLING LUNG DISEASE- MOTHER MENTAL ILLNESS- MOTHER STROKE- PATERNAL GRANDPARENTS SOCIAL HISTORY THIS INFORMATION WAS OBTAINED FROM THE PATIENT. CURRENT SOME DAY SMOKER: 2-3 CIGARETTES/DAY CAFFEINE USE: COFFEE OCCASIONALLY CHILDREN: 2 LIVES IN: APARTMENT IN [place], AND STAYS WITH EX- MARITAL STATUS: OCCUPATION: DISABLED MEDICAL HISTORY THIS INFORMATION WAS OBTAINED FROM THE PATIENT. 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 YES? COMPLETE ALL QUESTIONS.: NO SURGICAL HISTORY THIS INFORMATION WAS OBTAINED FROM THE PATIENT. PATIENT HAS A SURGICAL HISTORY OF: INGUNIAL HERNIA- (2004) WISDOM TEETH EXTRACTION- (1999) VASECTOMY- REVIEW OF SYSTEMS (ROS) THIS INFORMATION WAS OBTAINED FROM THE PATIENT. COMPLAINTS AND SYMPTOMS PATIENT COM PLAINS OF: GENERAL NOTES: I HAVE REVIEWED AND CONCUR WITH THE REVIEW OF SYSTEMS AND PAST FAMILY SOCIAL HISTORY DOCUMENTS COMPLETED BY THE CLINICIAN, I HAVE REVIEWED AND CONCUR WITH THE WOUND ASSESSMENT DOCUMENT COMPLETED BY THE CLINICIAN ALLERGIC/IMMUNOLOGIC: FREQUENT RASHES ROHIT SIDDIQI [id number] 1965 CARDIOVASCULAR (CENTRAL/PERIPHERAL): LOWER EXTREMITY (LEG) SWELLING CO-MORBID CONDITIONS: SMOKING HEMATOLOGIC/LYMPHATIC: BLEEDING / CLOTTING DISORDERS INTEGUMENTARY (HAIR/SKIN/NAILS): LESIONS, OPEN SORE PRIOR WOUND HISTORY: BLEEDING, DRAINAGE, ERYTHEMA, MALODOR, PAIN PATIENT DENIES COM PLAINTS OR SY M PTOM S RELATED TO: CARDIOVASCULAR (CENTRAL): CHEST PAIN, DYSPNEA ON EXERTION CARDIOVASCULAR (CENTRAL/PERIPHERAL): LOWER EXTREMITY (LEG) RESTING PAIN CONSTITUTIONAL SYMPTOMS (GENERAL HEALTH): CHILLS, FEVER, MARKED WEIGHT CHANGE EAR/NOSE/MOUTH/THROAT: HEARING LOSS / AID EYES: PARTIAL/COMPLETE BLINDNESS GASTROINTESTINAL (GI): NAUSEA / VOMITING HEMATOLOGIC/LYMPHATIC: BLEEDING TENDENCY MUSCULOSKELETAL: ASSISTIVE DEVICES, MUSCLE WEAKNESS NEUROLOGICAL: LOSS OF PROTECTIVE SENSATION PSYCHIATRIC: MEMORY LOSS RESPIRATORY: OXYGEN USE, SHORTNESS OF BREATH GENERAL NOTES IMMUNIZATIONS MANAGED BY PCP OBJECTIVE VITALS HEIGHT/LENGTH: 74 IN (187.96 CM), WEIGHT: 203.3 LBS (92.41 KGS), BMI: 26.1, TEMPERATURE: 98.1 ?F (36.72 ?C), PULSE: 81 BPM, RESPIRATORY RATE: 16 BREATHS/MIN, BLOOD PRESSURE: 115/74 MMHG, PULSE OXIMETRY: 95 %. PHYSICAL EXAM CONSTITUTIONAL: VITAL SIGNS REVIEWED AND NOTED. WELL DEVELOPED, WELL NOURISHED, AND IN NO ACUTE DISTRESS. ALERT AND ORIENTED X3. RESPIRATORY: EVEN RESPIRATIONS WITHOUT USE OF ACCESSORY MUSCLES. NO INTERCOASTAL RETRACTIONS NOTED. EVEN AND NON LABORED RESPIRATION. INTEGUMENTARY (HAIR, SKIN): PERIWOUND ERYTHEMA. MILD BILATERAL LOWER EXTREMITY EDEMA. SEE WOUND ASSESSMENT. NEUROLOGICAL: SENSATION: SYMMETRIC FUNCTION BY INFORMAL OBSERVATION. PSYCHIATRIC: ORIENTATION TO TIME, PLACE AND PERSON: NORMAL AFFECT WITH NORMAL THOUGHT PATTERN. ADDITIONAL INFORMATION THE PATIENT'S POTENTIAL TO HEAL IS: POOR. LOWER EXTREMITY ASSESSMENT EDEMA ASSESSMENT: LEFT EXTREMITY: EDEMA IS PRESENT COMPRESSION DEVICE IN USE: NO CALF MEASUREMENT 40 CM FROM HEEL WITH LEFT MEASUREMENT OF 39 CM ANKLE MEASUREMENT 5 CM FROM ANKLE WITH LEFT MEASUREMENT OF 25 CM FOOT MEASUREMENT 17 CM FROM HEEL WITH LEFT MEASUREMENT OF 24 CM ROHIT SIDDIQI [id number] 1965 RIGHT EXTREMITY: EDEMA IS PRESENT COMPRESSION DEVICE IN USE: NO CALF MEASUREMENT 40 CM FROM HEEL WITH RIGHT MEASUREMENT OF 40.5 CM ANKLE MEASUREMENT 5 CM FROM ANKLE WITH RIGHT MEASUREMENT OF 23 CM FOOT MEASUREMENT 17 CM FROM HEEL WITH RIGHT MEASUREMENT OF 22.5 CM VASCULAR ASSESSMENT LEFT EXTREMITY PULSES: DORSALIS PEDIS: PALPABLE RIGHT EXTREMITY PULSES: DORSALIS PEDIS: PALPABLE LEFT EXTREMITY COLORS, HAIR GROWTH, AND CONDITIONS: EXTREMITY COLOR: PIGMENTED HAIR GROWTH ON EXTREMITY: YES TEMPERATURE OF EXTREMITY: WARM CAPILARY REFILL: > 3 SECONDS ERYTHEMA: YES DEPENDENT RUBOR: NO HYPERPIGMENTATION: YES LIPODERMATOSCLEROSIS: NO RIGHT EXTREMITY COLORS, HAIR GROWTH, AND CONDITIONS: EXTREMITY COLOR: PIGMENTED HAIR GROWTH ON EXTREMITY: YES TEMPERATURE OF EXTREMITY: WARM CAPILARY REFILL: > 3 SECONDS ERYTHEMA: YES DEPENDENT RUBOR: NO HYPERPIGMENTATION: YES LIPODERMATOSCLEROSIS: NO OFF-LOADING: LEFT OFF-LOADING DEVICE IN USE: NO RIGHT OFF-LOADING DEVICE IN USE: NO WOUND ASSESSMENT(S) WOUND #82 RIGHT, POSTERIOR KNEE IS A CHRONIC FULL THICKNESS VASCULITIC ULCER ACQUIRED ON 02/18/2024 AND HAS RECEIVED A STATUS OF NOT HEALED. INITIAL WOUND ENCOUNTER MEASUREMENTS ARE 0.6CM LENGTH X 1.3CM WIDTH X 0.2 CM DEPTH, WITH AN AREA OF 0.78 SQ CM AND A VOLUME OF 0.156 CUBIC CM. ADIPOSE IS EXPOSED. NO TUNNELING HAS BEEN NOTED. NO SINUS TRACT HAS BEEN NOTED. NO UNDERMINING HAS BEEN NOTED. THERE IS A MODERATE AMOUNT OF SEROUS DRAINAGE NOTED WHICH HAS NO ODOR. THE PATIENT REPORTS A WOUND PAIN OF LEVEL 2/10. THE WOUND MARGIN IS UNATTACHED WOUND BED HAS NO, GRANULATION, YES SLOUGH, NO ESCHAR, NO EPITHELIALIZATION. THE PERIWOUND SKIN EXHIBITED EDEMA AND ERYTHEMA. THE PERIWOUND SKIN DID NOT EXHIBIT BRAWNY INDURATION, EXCORIATION, INDURATION, CALLUS, CREPITUS, FLUCTUANCE, RASH, MACERATION, ATROPHIE JAVIER, CYANOSIS, ECCHYMOSIS, HEMOSIDEROSIS, PALLOR AND RUBOR. THE PERIWOUND SKIN WAS NOT FRIABLE, DRY/SCALY AND MOIST. THE TEMPERATURE OF THE PERIWOUND SKIN IS WARM. PERIWOUND SKIN PRESENTS WITH S/S OF INFECTION. LOCAL PULSE IS PALPABLE. ADDITIONAL INFORMATION OTHER DEVITALIZED TISSUE PRESENT: BIOFILM WOUND #83 RIGHT, MEDIAL ANKLE RIGHT FOOT IS A CHRONIC FULL THICKNESS VASCULITIC ULCER ACQUIRED ON 02/18/2024 AND HAS RECEIVED A STATUS OF NOT HEALED. INITIAL WOUND ENCOUNTER MEASUREMENTS ARE 1CM LENGTH X 1CM WIDTH X 0.2 CM DEPTH, WITH AN AREA OF 1 SQ CM AND A VOLUME OF 0.2 CUBIC CM. ADIPOSE IS EXPOSED. NO TUNNELING HAS BEEN NOTED. NO SINUS TRACT HAS BEEN NOTED. NO UNDERMINING HAS BEEN NOTED. THERE IS A MODERATE AMOUNT OF SEROUS DRAINAGE NOTED WHICH HAS NO ODOR. THE PATIENT REPORTS A WOUND PAIN OF LEVEL 2/10. THE WOUND MARGIN IS ATTACHED WOUND BED HAS NO, GRANULATION, YES SLOUGH, NO ESCHAR, NO EPITHELIALIZATION. THE PERIWOUND SKIN EXHIBITED EDEMA AND ERYTHEMA. THE PERIWOUND SKIN DID NOT EXHIBIT BRAWNY INDURATION, EXCORIATION, INDURATION, CALLUS, CREPITUS, FLUCTUANCE, RASH, MACERATION, ATROPHIE JAVIER, CYANOSIS, ECCHYMOSIS, HEMOSIDEROSIS, PALLOR AND RUBOR. THE PERIWOUND SKIN WAS NOT FRIABLE, DRY/SCALY ROHIT SIDDIQI [id number] 1965 AND MOIST. THE TEMPERATURE OF THE PERIWOUND SKIN IS WARM. PERIWOUND SKIN PRESENTS WITH S/S OF INFECTION. LOCAL PULSE IS PALPABLE. ADDITIONAL INFORMATION OTHER DEVITALIZED TISSUE PRESENT: BIOFILM WOUND #84 LEFT, MEDIAL LEG - LOWER MEDIAL ANKLE IS A CHRONIC FULL THICKNESS VASCULITIC ULCER ACQUIRED ON 01/22/2024 AND HAS RECEIVED A STATUS OF NOT HEALED. INITIAL WOUND ENCOUNTER MEASUREMENTS ARE 4CM LENGTH X 4.5CM WIDTH X 0.2 CM DEPTH, WITH AN AREA OF 18 SQ CM AND A VOLUME OF 3.6 CUBIC CM. ADIPOSE IS EXPOSED. NO TUNNELING HAS BEEN NOTED. NO SINUS TRACT HAS BEEN NOTED. NO UNDERMINING HAS BEEN NOTED. THERE IS A MODERATE AMOUNT OF SEROUS DRAINAGE NOTED WHICH HAS NO ODOR. THE PATIENT REPORTS A WOUND PAIN OF LEVEL 2/10. THE WOUND MARGIN IS UNATTACHED WOUND BED HAS NO, GRANULATION, YES SLOUGH, NO ESCHAR, NO EPITHELIALIZATION. THE PERIWOUND SKIN EXHIBITED EDEMA AND ERYTHEMA. THE PERIWOUND SKIN DID NOT EXHIBIT BRAWNY INDURATION, EXCORIATION, INDURATION, CALLUS, CREPITUS, FLUCTUANCE, RASH, MACERATION, ATROPHIE JAVIER, CYANOSIS, ECCHYMOSIS, HEMOSIDEROSIS, PALLOR AND RUBOR. THE PERIWOUND SKIN WAS NOT FRIABLE, DRY/SCALY AND MOIST. THE TEMPERATURE OF THE PERIWOUND SKIN IS WNL. PERIWOUND SKIN PRESENTS WITH S/S OF INFECTION. LOCAL PULSE IS PALPABLE. ADDITIONAL INFORMATION OTHER DEVITALIZED TISSUE PRESENT: BIOFILM WOUND #85 LEFT, LATERAL LEG - LOWER LEFT FOOT IS A CHRONIC FULL THICKNESS VASCULITIC ULCER ACQUIRED ON 02/18/2024 AND HAS RECEIVED A STATUS OF NOT HEALED. INITIAL WOUND ENCOUNTER MEASUREMENTS ARE 3.6CM LENGTH X 1.9CM WIDTH X 0.2 CM DEPTH, WITH AN AREA OF 6.84 SQ CM AND A VOLUME OF 1.368 CUBIC CM. ADIPOSE IS EXPOSED. NO TUNNELING HAS BEEN NOTED. NO SINUS TRACT HAS BEEN NOTED. NO UNDERMINING HAS BEEN NOTED. THERE IS A MODERATE AMOUNT OF SEROUS DRAINAGE NOTED WHICH HAS NO ODOR. THE PATIENT REPORTS A WOUND PAIN OF LEVEL 2/10. THE WOUND MARGIN IS UNATTACHED WOUND BED HAS YES, BRIGHT RED, FIRM, GRANULATION, YES SLOUGH, NO ESCHAR, NO EPITHELIALIZATION. THE PERIWOUND SKIN EXHIBITED EDEMA AND ERYTHEMA. THE PERIWOUND SKIN DID NOT EXHIBIT BRAWNY INDURATION, EXCORIATION, INDURATION, CALLUS, CREPITUS, FLUCTUANCE, RASH, MACERATION, ATROPHIE JAVIER, CYANOSIS, ECCHYMOSIS, HEMOSIDEROSIS, PALLOR AND RUBOR. THE PERIWOUND SKIN WAS NOT FRIABLE, DRY/SCALY AND MOIST. THE TEMPERATURE OF THE PERIWOUND SKIN IS WARM. PERIWOUND SKIN PRESENTS WITH S/S OF INFECTION. LOCAL PULSE IS PALPABLE. ADDITIONAL INFORMATION OTHER DEVITALIZED TISSUE PRESENT: BIOFILM ASSESSMENT ACTIVE PROBLEMS ICD-10 (ENCOUNTER DIAGNOSIS) L95.0 - LIVEDOID VASCULITIS (ENCOUNTER DIAGNOSIS) L97.322 - NON-PRESSURE CHRONIC ULCER OF LEFT ANKLE WITH FAT LAYER EXPOSED (ENCOUNTER DIAGNOSIS) L97.312 - NON-PRESSURE CHRONIC ULCER OF RIGHT ANKLE WITH FAT LAYER EXPOSED (ENCOUNTER DIAGNOSIS) L97.812 - NON-PRESSURE CHRONIC ULCER OF OTHER PART OF RIGHT LOWER LEG WITH FAT LAYER EXPOSED (ENCOUNTER DIAGNOSIS) L97.822 - NON-PRESSURE CHRONIC ULCER OF OTHER PART OF LEFT LOWER LEG WITH FAT LAYER EXPOSED GENERAL NOTES MULTIPLE BILATERAL LOWER EXTREMITY ULCERS SECONDARY TO LIVE AVOID VASCULOPATHY WITH ACUTE INFECTION THE FOLLOWING FACTORS HAVE BEEN IDENTIFIED THAT MAY AFFECT WOUND HEALING: DEVITALIZED TISSUE BIOBURDEN ROHIT SIDDIQI [id number] 1965 INFECTION EDEMA GOALS: REMOVE DEVITALIZED TISSUE REMOVE AND PREVENT BIOFILM TREAT INFECTION REDUCE PAIN REDUCE SWELLING PLAN: THE PATIENT DECLINED TO HAVE ULCERS DEBRIDED. CULTURE OBTAINED FROM ULCER ON THE LEFT LOWER EXTREMITY. START DRESSING CHANGES WITH GENTAMICIN CREAM WITH TUBIGRIP FOR COMPRESSION, START BACTRIM DS 1 P.O. B.I.D. X7 DAYS AND ADJUST NEEDED, KEEP HER LEGS ELEVATED, FOLLOW UP IN 2 WEEKS FOR A RECHECK. PLAN WOUND ORDERS: WOUND #82 RIGHT, POSTERIOR KNEE ANESTHETIC TOPICAL XYLOCAINE TO WOUND BED - TO ALL WOUNDS IN CLINIC. HYGIENE MAY SHOWER WITH WOUND PROTECTED, USING A CAST PROTECTOR OR PLASTIC BAG AND TAPE CLEANSER CLEANSE WOUND WITH NORMAL SALINE TOPICAL TREATMENTS ANTIBIOTIC/ANTIMICROBIAL OINTMENT/CREAM - GENTAMICIN CREAM APPLIED TO WOUND BEDS. DRESSINGS PRIMARY DRESSING - NON-ADHERENT PAD. COVER AND SECURE WITH - CONFORMING ROLL GAUZE AND TAPE. CHANGE DRESSING - DAILY TO APPLY THE GENTAMICIN CREAM. WOUND #83 RIGHT, MEDIAL ANKLE RIGHT FOOT ANESTHETIC TOPICAL XYLOCAINE TO WOUND BED - TO ALL WOUNDS IN CLINIC. HYGIENE MAY SHOWER WITH WOUND PROTECTED, USING A CAST PROTECTOR OR PLASTIC BAG AND TAPE CLEANSER CLEANSE WOUND WITH NORMAL SALINE TOPICAL TREATMENTS ANTIBIOTIC/ANTIMICROBIAL OINTMENT/CREAM - GENTAMICIN CREAM APPLIED TO WOUND BEDS. DRESSINGS PRIMARY DRESSING - NON-ADHERENT PAD. COVER AND SECURE WITH - CONFORMING ROLL GAUZE AND TAPE. CHANGE DRESSING - DAILY TO APPLY THE GENTAMICIN CREAM. WOUND #84 LEFT, MEDIAL LEG - LOWER MEDIAL ANKLE ANESTHETIC TOPICAL XYLOCAINE TO WOUND BED - TO ALL WOUNDS IN CLINIC. HYGIENE MAY SHOWER WITH WOUND PROTECTED, USING A CAST PROTECTOR OR PLASTIC BAG AND TAPE CLEANSER CLEANSE WOUND WITH NORMAL SALINE TOPICAL TREATMENTS ANTIBIOTIC/ANTIMICROBIAL OINTMENT/CREAM - GENTAMICIN CREAM APPLIED TO WOUND BEDS. DRESSINGS PRIMARY DRESSING - NON-ADHERENT PAD. COVER AND SECURE WITH - CONFORMING ROLL GAUZE AND TAPE. CHANGE DRESSING - DAILY TO APPLY THE GENTAMICIN CREAM. WOUND #85 LEFT, LATERAL LEG - LOWER LEFT FOOT ROHIT SIDDIQI [id number] 1965 ANESTHETIC TOPICAL XYLOCAINE TO WOUND BED - TO ALL WOUNDS IN CLINIC. HYGIENE MAY SHOWER WITH WOUND PROTECTED, USING A CAST PROTECTOR OR PLASTIC BAG AND TAPE CLEANSER CLEANSE WOUND WITH NORMAL SALINE TOPICAL TREATMENTS ANTIBIOTIC/ANTIMICROBIAL OINTMENT/CREAM - GENTAMICIN CREAM APPLIED TO WOUND BEDS. DRESSINGS PRIMARY DRESSING - NON-ADHERENT PAD. COVER AND SECURE WITH - CONFORMING ROLL GAUZE AND TAPE. CHANGE DRESSING - DAILY TO APPLY THE GENTAMICIN CREAM. ADDITIONAL ORDERS: COMPRESSION/EDEMA CONTROL ELEVATION OF LEG(S) ABOVE THE LEVEL OF THE HEART WHEN SITTING AVOID PROLONGED STANDING IN ONE PLACE KNEE-HIGH GRADIENT COMPRESSION STOCKINGS COMPRESSION TYPE: - TUBULAR COMPRESSION STOCKING SIZE E TO BOTH LEGS. DIETARY INCREASED PROTEIN - AIDS IN WOUND HEALING. OTHER INSTRUCTIONS: - PLEASE CONTINUE TAKING CIALIS PRESCRIBED. FOLLOW-UP APPOINTMENTS RETURN APPOINTMENT - TWO WEEKS. OTHER INFORMATION: IF YOU DEVELOP FEVER, CHILLS, INCREASED PAIN, DRAINAGE, REDNESS OR SWELLING PLEASE CALL OUR OFFICE. IF AFTER HOURS, RESPOND TO THE ER. SHOULD YOU EXPERIENCE ANY SIGNIFICANT CHANGES IN YOUR WOUND(S) OR HAVE ANY QUESTIONS REGARDING YOUR HOME CARE INSTRUCTIONS PLEASE CONTACT THE WOUND CENTER @ [phone]. IF AFTER HOURS, CONTACT YOUR PRIMARY CARE PHYSICIAN OR GO TO THE HOSPITAL EMERGENCY ROOM. WE ARE PLACING AN ORDER FOR WOUND SUPPLIES ON YOUR BEHALF WITH AT-HOME WOUND CARE SUPPLIES. IF YOU HAVE NOT RECEIVED YOUR ORDER WITHIN 3 BUSINESS DAYS, PLEASE CALL AT-HOME WOUND CARE SUPPLIES AT [phone] TO SPEAK WITH A SPRAY CREW OR EMAIL: SCRIBING ATTESTATION I ATTEST, THE NURSE, THAT I SCRIBED THESE ORDERS FOR THE PHYSICIAN. ANCILLARY SERVICES: LABORATORY: CULTURE AND SENSITIVITY - SWAB SAMPLE TAKEN OF WOUND #85 (LEFT LATERAL LEG). PLEASE ASSOCIATE SCHOOL PSYCHOLOGIST AND START TAKING ANTIBIOTIC PRESCRIBED. WE WILL CALL YOU IF THE CULTURE RESULT INDICATES A NEED FOR A CHANGE IN MEDICATION. PLAN OF CARE: 01. ENSURE/ESTABLISH OPTIMAL BLOOD FLOW : - COMPLETE LOWER EXTREMITY ASSESSMENT STATUS: INITIATED DATE: 03/29/2024 02. ASSESS FOR/TREAT INFECTION : - EVALUATE FOR SIGNS AND SYMPTOMS OF INFECTION AND DOCUMENT FINDINGS. STATUS: INITIATED DATE: 03/29/2024 - OBTAIN CULTURE AND SENSITIVITY (CANDS) OR TISSUE CULTURE WHEN INFECTION IS SUSPECTED. (NOTE:) CONSIDER REPEATING WHEN WOUND HEALING <40% AFTER 30 DAYS OF WOUND CARE. STATUS: INITIATED DATE: 03/29/2024 - ORDER APPROPRIATE ANTIBIOTICS BASED ON PATIENT PRESENTATION AND CULTURE AND SENSITIVITY RESULTS. INSTRUCT PATIENT ON THE IMPORTANCE OF TAKING MEDICATION PRESCRIBED. STATUS: INITIATED DATE: 03/29/2024 03. DEBRIDE WEEKLY OR MORE OFTEN PRN : - EVALUATE PATIENT IN CENTER WEEKLY TO ASSESS WOUND BED AND MARGINS FOR NEED FOR DEBRIDEMENT. ROHIT SIDDIQI [id number] 1965 STATUS: INITIATED DATE: 03/29/2024 - DEBRIDEMENT BY ANY METHOD TO REMOVE DEVITALIZED/NECROTIC TISSUE TO PROMOTE HEALING AND PREVENT FURTHER COMPLICATIONS. GOAL IS TO STIMULATE AND/OR MAINTAIN ACUTE PHASE OF WOUND HEALING BY REDUCING BACTERIAL BURDEN AND DEVITALIZED/NON-VIABLE TISSUE. STATUS: INITIATED DATE: 03/29/2024 04. OPTIMIZE GLUCOSE CONTROL AND NUTRITION : - ORDER/REVIEW PERTINENT LABS TO EVALUATE RENAL FUNCTION, GLUCOSE CONTROL, AND NUTRITIONAL STATUS. STATUS: INITIATED DATE: 03/29/2024 05. OFFLOADING PLAN : - REVIEWED, NOT APPLICABLE 06. OPTIMIZE HOST FACTORS: - ASSESS AND REVIEW PATIENT HISTORY FOR WOUND ETIOLOGY, CO-MORBID CONDITIONS, MEDICATION REGIME, AND SMOKING HISTORY. STATUS: INITIATED DATE: 03/29/2024 - ASSESS LIFESTYLE FACTORS SUCH SMOKING, ALCOHOL/DRUG ABUSE, EATING HABITS/MALNUTRITION AND ACTIVITY LEVEL. STATUS: INITIATED DATE: 03/29/2024 - EDUCATE AND ENCOURAGE SMOKING CESSATION. STATUS: INITIATED DATE: 03/29/2024 - CONSIDER THE PATIENT FOR PALLIATIVE CARE APPROPRIATE. STATUS: COMPLETED DATE: 03/29/2024 07. DRESSING SELECTION : - EVALUATE FOR DRESSING-RELATED FACTORS, SUCH AVAILABILITY, WEAR TIME, ADAPTABILITY AND USE TO BETTER OPTIMIZE WOUND HEALING AND PATIENT COMPLIANCE. STATUS: INITIATED DATE: 03/29/2024 - EDUCATE THE PATIENT/FAMILY/CAREGIVER TO MONITOR DRESSING DAILY. CHANGE DRESSING ONLY NEEDED BUT NEVER LESS FREQUENTLY THAN WEEKLY SO THAT WOUND BED CAN BE REASSESSED. STATUS: INITIATED DATE: 03/29/2024 08. ADVANCED MODALITIES : - SET TREATMENT GOALS ACCORDING TO PATIENT AND/OR CAREGIVER?S ABILITY/ COMPLIANCE. STATUS: INITIATED DATE: 03/29/2024 09. FALL PREVENTION : - REVIEWED, NOT APPLICABLE 10. PAIN MANAGEMENT : - REVIEWED, NOT APPLICABLE 11. MEASURABLE GOALS FOR WOUND HEALING AND/OR HYPERBARIC OXYGEN THERAPY : - DECREASE INFLAMMATION STATUS: INITIATED DATE: 03/29/2024 - DECREASE PAIN STATUS: INITIATED DATE: 03/29/2024 - IMPLEMENT PROTOCOLS TO PROMOTE HEALING AND IMPEDE FURTHER INJURY STATUS: INITIATED DATE: 03/29/2024 - REDUCE EDEMA STATUS: INITIATED DATE: 03/29/2024 12. DURATION/FREQUENCY OF WOUND CARE VISITS : - 1X MONTH FOR NEXT FEW MONTHS ( NEEDED FOR PALLIATIVE) STATUS: INITIATED DATE: 03/29/2024 ROHIT ISDDIQI [id number] 1965 ELECTRONIC SIGNATURE(S) SIGNED BY: DATE: CRYSTAL CAI MD 04/03/2024 09:32:50 (PT) 03/29/2024 11:27:43 AM VERSION ELECTRONICALLY DATE: SIGNED BY: CRYSTAL CAI MD 03/29/2024 15:29:56 (PT) ENTERED BY: MARIBETH WALL ON 04/03/2024 08:53:34 (PT) ROHIT SIDDIQI [id number] 1965
== END ==
PROVIDERS: PCP Family Medicine; Referring Provider Physician Assistant; Visit Provider Surgery
DX: L97.312 Non-pressure chronic ulcer of right ankle with fat layer exposed (principal); L97.812 Non-pressure chronic ulcer of other part of right lower leg with fat layer exposed; L97.822 Non-pressure chronic ulcer of other part of left lower leg with fat layer exposed; L95.0 Livedoid vasculitis; L53.9 Erythematous condition, unspecified; R60.0 Localized edema; L08.89 Other specified local infections of the skin and subcutaneous tissue; F17.210 Nicotine dependence, cigarettes, uncomplicated; Z79.2 Long term (current) use of antibiotics
CPT/HCPCS: 87070; 87075; 87077; 87147; 87186; 87205; 99213; 99215

== ENCOUNTER → 2024-04-09 14:39 | Outpatient (CLI) | payer MEDICARE, SELFPAY | PROVIDERS: PCP Family Medicine; Referring Provider Physician Assistant; Visit Provider Surgery | DX: L95.0 Livedoid vasculitis (principal); L97.322 Non-pressure chronic ulcer of left ankle with fat layer exposed; L97.312 Non-pressure chronic ulcer of right ankle with fat layer exposed; L97.812 Non-pressure chronic ulcer of other part of right lower leg with fat layer exposed; L97.822 Non-pressure chronic ulcer of other part of left lower leg with fat layer exposed; R60.0 Localized edema; L53.9 Erythematous condition, unspecified | CPT/HCPCS: 97597; 97598; 97602 ==

== ENCOUNTER → 2024-04-23 13:55 | Outpatient (CLI) | payer MEDICARE, SELFPAY | PROVIDERS: PCP Family Medicine; Referring Provider Physician Assistant; Visit Provider Surgery | DX: L95.0 Livedoid vasculitis (principal); L97.322 Non-pressure chronic ulcer of left ankle with fat layer exposed; L97.312 Non-pressure chronic ulcer of right ankle with fat layer exposed; L97.822 Non-pressure chronic ulcer of other part of left lower leg with fat layer exposed; L97.812 Non-pressure chronic ulcer of other part of right lower leg with fat layer exposed; R60.0 Localized edema; L53.8 Other specified erythematous conditions; F17.210 Nicotine dependence, cigarettes, uncomplicated | CPT/HCPCS: 99213 ==

== ENCOUNTER → 2024-05-21 09:03 | Outpatient (CLI) | payer MEDICARE, SELFPAY ==
--- NOTE | 2024-05-21 | OV.WND_ITS ---
PROGRESS NOTE DETAILS PATIENT NAME: ROHIT SIDDIQI PATIENT NUMBER: [id number] CLINICIAN: FLETCHER AMOR PATIENT DATE OF : 1965 PHYSICIAN / MMD UNIT TEACHER: CRYSTAL CAI PATIENT SUBJECTIVE CHIEF COMPLAINT THIS INFORMATION WAS OBTAINED FROM THE PATIENT. THEY HURT ALLERGIES ADHESIVE TAPE (REACTION: BLISTERS), NEOSPORIN ([id number]) (REACTION: INFLAMED), NEOMYCIN (REACTION: INFLAMMATION), POLYMYXIN B (REACTION: INFLAMMATION), DOXYCYCLINE (REACTION: RASH/PRURITUS) HPI THIS INFORMATION WAS OBTAINED FROM THE PATIENT. THE FOLLOWING HPI ELEMENTS WERE DOCUMENTED FOR THE PATIENT'S WOUND: LOCATION: BLE DURATION: 02/18/24 CONTEXT: LIVEDOID VASCULOPATHY THE PATIENT IS A 58-YEAR-OLD MALE WHO RETURNS TODAY FOR FOLLOW UP OF MULTIPLE ULCERS ON BOTH LOWER EXTREMITIES. THE PATIENT HAS BEEN RECEIVING DRESSING CHANGES WITH GENTAMICIN CREAM AND RECENTLY COMPLETED ANOTHER COURSE OF BACTRIM DS. THE PATIENT REPORTS THAT THE ULCERS ARE STILL PAINFUL. THE PATIENT HAS BEEN USING ALEJANDRO WRAPS AND TUBIGRIP FOR COMPRESSION. THE PATIENT FEELS THAT HIS LOWER EXTREMITY SWELLING HAS BEEN GRADUALLY GETTING WORSE. 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 HE HAS PREVIOUSLY UNDERGONE AN EXTENSIVE WORKUP AT THE DERMATOLOGY CLINIC AT [facility] WHERE THE DIAGNOSIS WAS ESTABLISHED. THE PATIENT HAS UNDERGONE A WIDE VARIETY OF TREATMENTS INCLUDING COMBINATIONS OF ANTICOAGULANTS, ANTI-PLATELET MEDICATIONS, FIBRINOLYTIC THERAPIES, AND ANABOLIC STEROIDS WITHOUT SUCCESS AND HIS WOUNDS ARE NOW CONSIDERED PALLIATIVE. THE ONLY TREATMENT THAT PROVIDED ANY BENEFIT WAS AN OFF LABEL USE OF HYPERBARIC OXYGEN SEVERAL YEARS AGO. PATIENT HAS DECLINED ANY FURTHER WORKUP OR ANY FURTHER ATTEMPTS AT CURATIVE TREATMENT. ULCERS DO SEEM TO FLUCTUATE IN SEVERITY AND THE PATIENT HAS NEVER BEEN ABLE TO IDENTIFY ANY FACTORS THAT SEEM TO MAKE THEM WORSE. LINEZOLID, LEVAQUIN, AND BACTRIM HAVE HELPED IN THE PAST. PATIENT REMAINS A CURRENT EVERY DAY SMOKER. HE HAS STOPPED SMOKING IN THE PAST AND THIS HAD NO EFFECT ON ULCER HEALING. HE DENIES HAVING ANY FEVER OR CHILLS. NO OTHER CHANGES IN OVERALL HEALTH. ON EXAM TODAY THERE IS SOME MILD PERIWOUND ERYTHEMA AND MILD LOWER EXTREMITY SWELLING. MULTIPLE SCATTERED ULCERS WITH SLOUGH WERE NOTED ON BOTH LOWER EXTREMITIES. PREVIOUS TESTIN03/29/24: CULTURE GREW MRSA 10/21/23: CULTURE MRSA 09/02/23: CULTURE MRSA, RX BACTRIM 07/22/23: CULTURE NO GROWTH 06/06/23: CULTURES GREW STAPHYLOCOCCUS AUREUS AND CITROBACTER DIVERSUS 03/31/23: WBC 5.7, HEMOGLOBIN 14.6, HCT 42.8 ELECTROLYTES UNREMARKABLE, LFTS NORMAL ROHIT SIDDIQI [id number] 1965 09/19/22: CULTURES GREW MORGANELLI MORGANII AND ENTEROCOCCUS FAECALIS. 09/19/22: WBC 9.3, HEMOGLOBIN 13.8, HCT 39.8, ELECTROLYTES NORMAL, GFR GREATER THAN 60 FAMILY HISTORY THIS INFORMATION WAS OBTAINED FROM THE PATIENT. CANCER- MOTHER, MATERNAL GRANDPARENTS, PATERNAL GRANDPARENTS HEART DISEASE- FATHER KIDNEY DISEASE- SIBLING LUNG DISEASE- MOTHER MENTAL ILLNESS- MOTHER STROKE- PATERNAL GRANDPARENTS SOCIAL HISTORY THIS INFORMATION WAS OBTAINED FROM THE PATIENT. CURRENT SOME DAY SMOKER: 2-3 CIGARETTES/DAY CAFFEINE USE: COFFEE OCCASIONALLY CHILDREN: 2 LIVES IN: APARTMENT IN [place], AND STAYS WITH EX- MARITAL STATUS: OCCUPATION: DISABLED MEDICAL HISTORY THIS INFORMATION WAS OBTAINED FROM THE PATIENT. 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 YES? COMPLETE ALL QUESTIONS.: NO SURGICAL HISTORY THIS INFORMATION WAS OBTAINED FROM THE PATIENT. PATIENT HAS A SURGICAL HISTORY OF: INGUNIAL HERNIA- (2004) WISDOM TEETH EXTRACTION- (1999) VASECTOMY- REVIEW OF SYSTEMS (ROS) THIS INFORMATION WAS OBTAINED FROM THE PATIENT. COMPLAINTS AND SYMPTOMS PATIENT COM PLAINS OF: GENERAL NOTES: I HAVE REVIEWED AND CONCUR WITH THE REVIEW OF SYSTEMS AND PAST FAMILY SOCIAL HISTORY DOCUMENTS COMPLETED BY THE CLINICIAN, I HAVE REVIEWED AND CONCUR WITH THE WOUND ASSESSMENT ROHIT SIDDIQI [id number] 1965 DOCUMENT COMPLETED BY THE CLINICIAN ALLERGIC/IMMUNOLOGIC: FREQUENT RASHES CARDIOVASCULAR (CENTRAL/PERIPHERAL): LOWER EXTREMITY (LEG) SWELLING CO-MORBID CONDITIONS: SMOKING HEMATOLOGIC/LYMPHATIC: BLEEDING / CLOTTING DISORDERS INTEGUMENTARY (HAIR/SKIN/NAILS): LESIONS, OPEN SORE PRIOR WOUND HISTORY: BLEEDING, DRAINAGE, ERYTHEMA, MALODOR, PAIN PATIENT DENIES COM PLAINTS OR SY M PTOM S RELATED TO: CARDIOVASCULAR (CENTRAL): CHEST PAIN, DYSPNEA ON EXERTION CARDIOVASCULAR (CENTRAL/PERIPHERAL): LOWER EXTREMITY (LEG) RESTING PAIN CONSTITUTIONAL SYMPTOMS (GENERAL HEALTH): CHILLS, FEVER, MARKED WEIGHT CHANGE EAR/NOSE/MOUTH/THROAT: HEARING LOSS / AID EYES: PARTIAL/COMPLETE BLINDNESS GASTROINTESTINAL (GI): NAUSEA / VOMITING HEMATOLOGIC/LYMPHATIC: BLEEDING TENDENCY MUSCULOSKELETAL: ASSISTIVE DEVICES, MUSCLE WEAKNESS NEUROLOGICAL: LOSS OF PROTECTIVE SENSATION PSYCHIATRIC: MEMORY LOSS RESPIRATORY: OXYGEN USE, SHORTNESS OF BREATH OBJECTIVE VITALS HEIGHT/LENGTH: 74 IN (187.96 CM), WEIGHT: 203.3 LBS (92.41 KGS), BMI: 26.1, TEMPERATURE: 99.2 ?F (37.33 ?C), PULSE: 91 BPM, RESPIRATORY RATE: 16 BREATHS/MIN, BLOOD PRESSURE: 136/76 MMHG, PULSE OXIMETRY: 97 %. PHYSICAL EXAM CONSTITUTIONAL: VITAL SIGNS REVIEWED AND NOTED. WELL DEVELOPED, WELL NOURISHED, AND IN NO ACUTE DISTRESS. ALERT AND ORIENTED X3. RESPIRATORY: EVEN RESPIRATIONS WITHOUT USE OF ACCESSORY MUSCLES. NO INTERCOASTAL RETRACTIONS NOTED. EVEN AND NON LABORED RESPIRATION. INTEGUMENTARY (HAIR, SKIN): MILD PERIWOUND ERYTHEMA. MILD BILATERAL LOWER EXTREMITY SWELLING. SEE WOUND ASSESSMENT. SKIN WARM AND DRY. NO RASHES. NEUROLOGICAL: SENSATION: SYMMETRIC FUNCTION BY INFORMAL OBSERVATION. PSYCHIATRIC: ORIENTATION TO TIME, PLACE AND PERSON: NORMAL AFFECT WITH NORMAL THOUGHT PATTERN. ADDITIONAL INFORMATION THE PATIENT'S POTENTIAL TO HEAL IS: POOR. LOWER EXTREMITY ASSESSMENT EDEMA ASSESSMENT: LEFT EXTREMITY: EDEMA IS PRESENT COMPRESSION DEVICE IN USE: NO CALF MEASUREMENT 40 CM FROM HEEL WITH LEFT MEASUREMENT OF 39.5 CM ANKLE MEASUREMENT 5 CM FROM ANKLE WITH LEFT MEASUREMENT OF 22.5 CM ROHIT SIDDIQI [id number] 1965 FOOT MEASUREMENT 17 CM FROM HEEL WITH LEFT MEASUREMENT OF 23 CM RIGHT EXTREMITY: EDEMA IS PRESENT COMPRESSION DEVICE IN USE: NO CALF MEASUREMENT 40 CM FROM HEEL WITH RIGHT MEASUREMENT OF 39 CM ANKLE MEASUREMENT 5 CM FROM ANKLE WITH RIGHT MEASUREMENT OF 25.5 CM FOOT MEASUREMENT 17 CM FROM HEEL WITH RIGHT MEASUREMENT OF 23.5 CM VASCULAR ASSESSMENT LEFT EXTREMITY COLORS, HAIR GROWTH, AND CONDITIONS: EXTREMITY COLOR: PIGMENTED HAIR GROWTH ON EXTREMITY: YES TEMPERATURE OF EXTREMITY: WARM CAPILARY REFILL: > 3 SECONDS ERYTHEMA: YES DEPENDENT RUBOR: NO HYPERPIGMENTATION: YES LIPODERMATOSCLEROSIS: NO RIGHT EXTREMITY COLORS, HAIR GROWTH, AND CONDITIONS: EXTREMITY COLOR: PIGMENTED HAIR GROWTH ON EXTREMITY: YES TEMPERATURE OF EXTREMITY: WARM CAPILARY REFILL: > 3 SECONDS ERYTHEMA: YES DEPENDENT RUBOR: NO HYPERPIGMENTATION: YES LIPODERMATOSCLEROSIS: NO OFF-LOADING: LEFT OFF-LOADING DEVICE IN USE: NO RIGHT OFF-LOADING DEVICE IN USE: NO WOUND ASSESSMENT(S) WOUND #82 RIGHT, POSTERIOR KNEE IS A CHRONIC FULL THICKNESS VASCULITIC ULCER ACQUIRED ON 02/18/2024 AND HAS RECEIVED AN OUTCOME OF HEALED - NO NEW WOUND(S). INITIAL WOUND ENCOUNTER MEASUREMENTS ARE 0CM LENGTH X 0CM WIDTH WITH NO MEASURABLE DEPTH, WITH AN AREA OF 0 SQ CM.INITIAL WOUND ENCOUNTER PREVIOUS MEASUREMENTS FROM 04/23/2024 ARE 0.6CM LENGTH X 0.7CM WIDTH X 0.1CM DEPTH, WITH AN AREA OF 0.42 SQ CM AND A VOLUME OF 0.042 CUBIC CM. NO TUNNELING HAS BEEN NOTED. NO SINUS TRACT HAS BEEN NOTED. NO UNDERMINING HAS BEEN NOTED. THERE WAS NO DRAINAGE NOTED. THE PATIENT REPORTS A WOUND PAIN OF LEVEL 2/10. THE WOUND MARGIN IS EPITHELIAL RESURFACING WOUND BED HAS NO, GRANULATION, NO SLOUGH, NO ESCHAR, YES EPITHELIALIZATION. THE PERIWOUND SKIN EXHIBITED EDEMA AND ERYTHEMA. THE PERIWOUND SKIN DID NOT EXHIBIT BRAWNY INDURATION, EXCORIATION, INDURATION, CALLUS, CREPITUS, FLUCTUANCE, RASH, MACERATION, ATROPHIE JAVIER, CYANOSIS, ECCHYMOSIS, HEMOSIDEROSIS, PALLOR AND RUBOR. THE PERIWOUND SKIN WAS NOT FRIABLE, DRY/SCALY AND MOIST. THE TEMPERATURE OF THE PERIWOUND SKIN IS WARM. PERIWOUND SKIN DOES NOT EXHIBIT SIGNS OR SYMPTOMS OF INFECTION. LOCAL PULSE IS PALPABLE. WOUND #83 RIGHT, MEDIAL ANKLE RIGHT FOOT IS A CHRONIC FULL THICKNESS VASCULITIC ULCER ACQUIRED ON 02/18/2024 AND HAS RECEIVED A STATUS OF NOT HEALED. INITIAL WOUND ENCOUNTER MEASUREMENTS ARE 0.4CM LENGTH X 0.3CM WIDTH X 0.1 CM DEPTH, WITH AN AREA OF 0.12 SQ CM AND A VOLUME OF 0.012 CUBIC CM.INITIAL WOUND ENCOUNTER PREVIOUS MEASUREMENTS FROM 04/23/2024 ARE 0.5CM LENGTH X 0.4CM WIDTH X 0.2CM DEPTH, WITH AN AREA OF 0.2 SQ CM AND A VOLUME OF 0.04 CUBIC CM. ADIPOSE IS EXPOSED. NO TUNNELING HAS BEEN NOTED. NO SINUS TRACT HAS BEEN NOTED. NO UNDERMINING HAS BEEN NOTED. THERE IS A MODERATE AMOUNT OF SEROUS DRAINAGE NOTED WHICH HAS NO ODOR. THE PATIENT REPORTS A WOUND PAIN OF LEVEL 2/10. THE WOUND MARGIN IS ATTACHED WOUND BED HAS NO, GRANULATION, YES SLOUGH, NO ESCHAR, NO EPITHELIALIZATION. THE PERIWOUND SKIN EXHIBITED EDEMA AND ERYTHEMA. THE PERIWOUND SKIN DID NOT EXHIBIT BRAWNY INDURATION, EXCORIATION, INDURATION, CALLUS, CREPITUS, FLUCTUANCE, RASH, MACERATION, ATROPHIE JAVIER, CYANOSIS, ECCHYMOSIS, HEMOSIDEROSIS, PALLOR AND RUBOR. THE PERIWOUND SKIN WAS NOT FRIABLE, DRY/SCALY AND MOIST. THE TEMPERATURE OF THE PERIWOUND SKIN IS WNL. PERIWOUND SKIN DOES NOT EXHIBIT SIGNS OR SYMPTOMS OF INFECTION. LOCAL PULSE IS PALPABLE. GENERAL NOTES ROHIT SIDDIQI [id number] 1965 SCATTERED OPEN AREAS NOTED TO ANKLE AND FOOT ADDITIONAL INFORMATION OTHER DEVITALIZED TISSUE PRESENT: BIOFILM WOUND #84 LEFT, MEDIAL LEG - LOWER MEDIAL ANKLE IS A CHRONIC FULL THICKNESS VASCULITIC ULCER ACQUIRED ON 01/22/2024 AND HAS RECEIVED A STATUS OF NOT HEALED. INITIAL WOUND ENCOUNTER MEASUREMENTS ARE 0.2CM LENGTH X 0.2CM WIDTH X 0.1 CM DEPTH, WITH AN AREA OF 0.04 SQ CM AND A VOLUME OF 0.004 CUBIC CM.INITIAL WOUND ENCOUNTER PREVIOUS MEASUREMENTS FROM 04/23/2024 ARE 5.5CM LENGTH X 1.1CM WIDTH X 0.1CM DEPTH, WITH AN AREA OF 6.05 SQ CM AND A VOLUME OF 0.605 CUBIC CM. ADIPOSE IS EXPOSED. NO TUNNELING HAS BEEN NOTED. NO SINUS TRACT HAS BEEN NOTED. NO UNDERMINING HAS BEEN NOTED. THERE IS A MODERATE AMOUNT OF SEROUS DRAINAGE NOTED WHICH HAS NO ODOR. THE PATIENT REPORTS A WOUND PAIN OF LEVEL 2/10. THE WOUND MARGIN IS UNATTACHED WOUND BED HAS NO, GRANULATION, YES SLOUGH, NO ESCHAR, NO EPITHELIALIZATION. THE PERIWOUND SKIN EXHIBITED EDEMA AND ERYTHEMA. THE PERIWOUND SKIN DID NOT EXHIBIT BRAWNY INDURATION, EXCORIATION, INDURATION, CALLUS, CREPITUS, FLUCTUANCE, RASH, MACERATION, ATROPHIE JAVIER, CYANOSIS, ECCHYMOSIS, HEMOSIDEROSIS, PALLOR AND RUBOR. THE PERIWOUND SKIN WAS NOT FRIABLE, DRY/SCALY AND MOIST. THE TEMPERATURE OF THE PERIWOUND SKIN IS WNL. PERIWOUND SKIN DOES NOT EXHIBIT SIGNS OR SYMPTOMS OF INFECTION. LOCAL PULSE IS PALPABLE. ADDITIONAL INFORMATION OTHER DEVITALIZED TISSUE PRESENT: BIOFILM WOUND #85 LEFT, LATERAL LEG - LOWER LEFT FOOT IS A CHRONIC FULL THICKNESS VASCULITIC ULCER ACQUIRED ON 02/18/2024 AND HAS RECEIVED A STATUS OF NOT HEALED. INITIAL WOUND ENCOUNTER MEASUREMENTS ARE 0.1CM LENGTH X 0.1CM WIDTH X 0.1 CM DEPTH, WITH AN AREA OF 0.01 SQ CM AND A VOLUME OF 0.001 CUBIC CM.INITIAL WOUND ENCOUNTER PREVIOUS MEASUREMENTS FROM 04/23/2024 ARE 6.5CM LENGTH X 3CM WIDTH X 0.1CM DEPTH, WITH AN AREA OF 19.5 SQ CM AND A VOLUME OF 1.95 CUBIC CM. ADIPOSE IS EXPOSED. NO TUNNELING HAS BEEN NOTED. NO SINUS TRACT HAS BEEN NOTED. NO UNDERMINING HAS BEEN NOTED. THERE IS A MODERATE AMOUNT OF SEROUS DRAINAGE NOTED WHICH HAS NO ODOR. THE PATIENT REPORTS A WOUND PAIN OF LEVEL 2/10. THE WOUND MARGIN IS UNATTACHED WOUND BED HAS YES, BRIGHT RED, FIRM, GRANULATION, YES SLOUGH, NO ESCHAR, NO EPITHELIALIZATION. THE PERIWOUND SKIN EXHIBITED EDEMA AND ERYTHEMA. THE PERIWOUND SKIN DID NOT EXHIBIT BRAWNY INDURATION, EXCORIATION, INDURATION, CALLUS, CREPITUS, FLUCTUANCE, RASH, MACERATION, ATROPHIE JAVIER, CYANOSIS, ECCHYMOSIS, HEMOSIDEROSIS, PALLOR AND RUBOR. THE PERIWOUND SKIN WAS NOT FRIABLE, DRY/SCALY AND MOIST. THE TEMPERATURE OF THE PERIWOUND SKIN IS WARM. PERIWOUND SKIN DOES NOT EXHIBIT SIGNS OR SYMPTOMS OF INFECTION. LOCAL PULSE IS PALPABLE. GENERAL NOTES SCATTERED OPEN AREAS NOTED TO ANKLE AND FOOT ADDITIONAL INFORMATION OTHER DEVITALIZED TISSUE PRESENT: BIOFILM ASSESSMENT ACTIVE PROBLEMS ICD-10 (ENCOUNTER DIAGNOSIS) L95.0 - LIVEDOID VASCULITIS (ENCOUNTER DIAGNOSIS) L97.322 - NON-PRESSURE CHRONIC ULCER OF LEFT ANKLE WITH FAT LAYER EXPOSED (ENCOUNTER DIAGNOSIS) L97.312 - NON-PRESSURE CHRONIC ULCER OF RIGHT ANKLE WITH FAT LAYER EXPOSED (ENCOUNTER DIAGNOSIS) L97.812 - NON-PRESSURE CHRONIC ULCER OF OTHER PART OF RIGHT LOWER LEG WITH FAT LAYER EXPOSED (ENCOUNTER DIAGNOSIS) L97.822 - NON-PRESSURE CHRONIC ULCER OF OTHER PART OF LEFT LOWER LEG WITH FAT LAYER EXPOSED SIDDIQIROHIT NEAL [id number] 1965 GENERAL NOTES MULTIPLE BILATERAL LOWER EXTREMITY ULCERS SECONDARY TO LIVEDOID VASCULOPATHY, LOWER EXTREMITY SWELLING GRADUALLY GETTING WORSE THE FOLLOWING FACTORS HAVE BEEN IDENTIFIED THAT MAY AFFECT WOUND HEALING: DEVITALIZED TISSUE BIOBURDEN INFECTION EDEMA GOALS: REMOVE DEVITALIZED TISSUE REMOVE AND PREVENT BIOFILM TREAT INFECTION REDUCE PAIN REDUCE SWELLING PLAN: CONTINUE DRESSING CHANGES WITH GENTAMICIN CREAM WITH TUBIGRIP FOR COMPRESSION, REFILL BACTRIM DS 1 P.O. B.I.D. TO USE IF THE PAIN AND ERYTHEMA WORSEN, ORDER VEIN MAPPING, FOLLOW UP IN 1 MONTH FOR A RECHECK. 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 TOPICAL TREATMENTS APPLY ANTIBIOTIC/ANTIMICROBIAL OINTMENT/CREAM TO THE WOUND BED. - GENTAMICIN CREAM TO ALL DAILY DRESSING ORDERS APPLY DRESSING(S) AND SECURE WITH: - TELFA. MAY USE UNNA GAUZE FOR COMFORT, ROLL GAUZE DRESSING CHANGE FREQUENCY CHANGE DRESSING DAILY. WOUND #84 LEFT, MEDIAL LEG - LOWER MEDIAL ANKLE CLEANSER CLEANSE WOUND WITH NORMAL SALINE PROCEDURE / ANESTHETIC 5% TOPICAL LIDOCAINE TO WOUND BED PRIOR TO PROCEDURE, IN CLINIC ONLY. TOPICAL TREATMENTS APPLY ANTIBIOTIC/ANTIMICROBIAL OINTMENT/CREAM TO THE WOUND BED. - GENTAMICIN CREAM TO ALL DAILY DRESSING ORDERS APPLY DRESSING(S) AND SECURE WITH: - TELFA. MAY USE UNNA GAUZE FOR COMFORT, ROLL GAUZE DRESSING CHANGE FREQUENCY CHANGE DRESSING DAILY. WOUND #85 LEFT, LATERAL LEG - LOWER LEFT FOOT CLEANSER CLEANSE WOUND WITH NORMAL SALINE PROCEDURE / ANESTHETIC 5% TOPICAL LIDOCAINE TO WOUND BED PRIOR TO PROCEDURE, IN CLINIC ONLY. TOPICAL TREATMENTS APPLY ANTIBIOTIC/ANTIMICROBIAL OINTMENT/CREAM TO THE WOUND BED. - GENTAMICIN CREAM TO ALL DAILY DRESSING ORDERS APPLY DRESSING(S) AND SECURE WITH: - TELFA. MAY USE UNNA GAUZE FOR COMFORT, ROLL GAUZE DRESSING CHANGE FREQUENCY CHANGE DRESSING DAILY. ROHIT SIDDIQI [id number] 1965 ADDITIONAL ORDERS: COMPRESSION/EDEMA CONTROL ELEVATE LEG(S) ABOVE THE LEVEL OF THE HEART MUCH POSSIBLE. AVOID STANDING IN ONE POSITION FOR MORE THAN 10 MINUTES. AVOID SITTING WITH LEGS DOWN. DO NOT CROSS LEGS WHEN SITTING. APPLY KNEE-HIGH GRADIENT COMPRESSION STOCKINGS AT 20-30MMHG DIETARY TAKE VITAMIN C 1000MG BY MOUTH DAILY. TAKE ZINC 25MG BY MOUTH DAILY. INCREASE THE PROTEIN IN YOUR DIET. FOLLOW-UP APPOINTMENTS RETURN APPOINTMENT 3 WEEKS OTHER ORDERS: - PLEASE CALL AND SCHEDULE [facility] [phone] SCRIBING ATTESTATION I ATTEST, THE NURSE, THAT I SCRIBED THESE ORDERS FOR THE WOUND CARE PROVIDER. PROVIDER REVIEW AND ATTESTATION: REVIEWED AND EVALUATED LABS. REVIEWED HOSPITAL RECORDS. DISCUSSED THE PLAN OF CARE @ BEDSIDE WITH - THE PATIENT SMOKING CESSATION WAS ENCOURAGED. PLACE PATIENT ON PALLIATIVE CARE DUE TO: - CHRONIC DISEASE I AGREE AND ATTEST TO THE ABOVE INFORMATION PROVIDED FROM OTHER LICENSED PROFESSIONALS. ANCILLARY SERVICES: CARDIOVASCULAR: [facility] DOPPLER STUDIES - BILATERAL LEGS MEDICATIONS PRESCRIBED: BACTRIM DS - ORAL 800 MG-160 MG 1 TABLET TWICE DAILY FOR 1 WEEK STARTING 05/21/2024 PLAN OF CARE: 01. ENSURE/ESTABLISH OPTIMAL BLOOD FLOW : - COMPLETE LOWER EXTREMITY ASSESSMENT STATUS: CONTINUED DATE: 05/21/2024 02. ASSESS FOR/TREAT INFECTION : - EVALUATE FOR SIGNS AND SYMPTOMS OF INFECTION AND DOCUMENT FINDINGS. STATUS: CONTINUED DATE: 05/21/2024 - OBTAIN CULTURE AND SENSITIVITY (CANDS) OR TISSUE CULTURE WHEN INFECTION IS SUSPECTED. (NOTE:) CONSIDER REPEATING WHEN WOUND HEALING <40% AFTER 30 DAYS OF WOUND CARE. STATUS: CONTINUED DATE: 05/21/2024 - ORDER APPROPRIATE ANTIBIOTICS BASED ON PATIENT PRESENTATION AND CULTURE AND SENSITIVITY RESULTS. INSTRUCT PATIENT ON THE IMPORTANCE OF TAKING MEDICATION PRESCRIBED. STATUS: CONTINUED DATE: 05/21/2024 03. DEBRIDE WEEKLY OR MORE OFTEN PRN : - EVALUATE PATIENT IN CENTER WEEKLY TO ASSESS WOUND BED AND MARGINS FOR NEED FOR DEBRIDEMENT. STATUS: CONTINUED DATE: 05/21/2024 - DEBRIDEMENT BY ANY METHOD TO REMOVE DEVITALIZED/NECROTIC TISSUE TO PROMOTE HEALING AND PREVENT FURTHER COMPLICATIONS. GOAL IS TO STIMULATE AND/OR MAINTAIN ACUTE PHASE OF WOUND HEALING BY REDUCING BACTERIAL BURDEN AND DEVITALIZED/NON-VIABLE TISSUE. STATUS: CONTINUED DATE: 05/21/2024 04. OPTIMIZE GLUCOSE CONTROL AND NUTRITION : - ORDER/REVIEW PERTINENT LABS TO EVALUATE RENAL FUNCTION, GLUCOSE CONTROL, AND NUTRITIONAL STATUS. STATUS: CONTINUED DATE: 05/21/2024 05. OFFLOADING PLAN : - REVIEWED, NOT APPLICABLE ROHIT SIDDIQI [id number] 1965 06. OPTIMIZE HOST FACTORS: - ASSESS AND REVIEW PATIENT HISTORY FOR WOUND ETIOLOGY, CO-MORBID CONDITIONS, MEDICATION REGIME, AND SMOKING HISTORY. STATUS: CONTINUED DATE: 05/21/2024 - ASSESS LIFESTYLE FACTORS SUCH SMOKING, ALCOHOL/DRUG ABUSE, EATING HABITS/MALNUTRITION AND ACTIVITY LEVEL. STATUS: CONTINUED DATE: 05/21/2024 - EDUCATE AND ENCOURAGE SMOKING CESSATION. STATUS: CONTINUED DATE: 05/21/2024 - CONSIDER THE PATIENT FOR PALLIATIVE CARE APPROPRIATE. STATUS: COMPLETED DATE: 05/21/2024 07. DRESSING SELECTION : - EVALUATE FOR DRESSING-RELATED FACTORS, SUCH AVAILABILITY, WEAR TIME, ADAPTABILITY AND USE TO BETTER OPTIMIZE WOUND HEALING AND PATIENT COMPLIANCE. STATUS: CONTINUED DATE: 05/21/2024 - EDUCATE THE PATIENT/FAMILY/CAREGIVER TO MONITOR DRESSING DAILY. CHANGE DRESSING ONLY NEEDED BUT NEVER LESS FREQUENTLY THAN WEEKLY SO THAT WOUND BED CAN BE REASSESSED. STATUS: CONTINUED DATE: 05/21/2024 08. ADVANCED MODALITIES : - SET TREATMENT GOALS ACCORDING TO PATIENT AND/OR CAREGIVER?S ABILITY/ COMPLIANCE. STATUS: CONTINUED DATE: 05/21/2024 09. FALL PREVENTION : - REVIEWED, NOT APPLICABLE 10. PAIN MANAGEMENT : - REVIEWED, NOT APPLICABLE 11. MEASURABLE GOALS FOR WOUND HEALING AND/OR HYPERBARIC OXYGEN THERAPY : - DECREASE INFLAMMATION STATUS: CONTINUED DATE: 05/21/2024 - DECREASE PAIN STATUS: CONTINUED DATE: 05/21/2024 - IMPLEMENT PROTOCOLS TO PROMOTE HEALING AND IMPEDE FURTHER INJURY STATUS: CONTINUED DATE: 05/21/2024 - REDUCE EDEMA STATUS: CONTINUED DATE: 05/21/2024 12. DURATION/FREQUENCY OF WOUND CARE VISITS : - EVERY 30 DAYS STATUS: CONTINUED DATE: 05/21/2024 ELECTRONIC SIGNATURE(S) SIGNED BY: DATE: CRYSTAL CAI MD 05/21/2024 16:06:32 (PT) ENTERED BY: CRYSTAL CAI MD ON 05/21/2024 13:15:52 (PT) ROHIT SIDDIQI [id number] 1965
== END ==
PROVIDERS: PCP Family Medicine; Referring Provider Physician Assistant; Visit Provider Surgery
DX: L95.0 Livedoid vasculitis (principal); L97.312 Non-pressure chronic ulcer of right ankle with fat layer exposed; L97.322 Non-pressure chronic ulcer of left ankle with fat layer exposed; L97.822 Non-pressure chronic ulcer of other part of left lower leg with fat layer exposed; R60.0 Localized edema; L53.8 Other specified erythematous conditions; R20.8 Other disturbances of skin sensation
CPT/HCPCS: 99213; 99214

== ENCOUNTER → 2024-06-04 12:03 | Outpatient (CLI) | payer MEDICARE, SELFPAY ==
--- NOTE | 2024-06-04 12:04 | DI.US.S_ITS ---
PROCEDURE: US VENOUS INSUFFICIENCY BILAT INDICATIONS: eval for refulx TECHNIQUE: Real time scanning was performed of the lower extremity venous system, with imaging documentation, as well as Color and pulse Doppler interrogation. COMPARISON: None. FINDINGS: RIGHT LOWER EXTREMITY: The deep veins are normally compressible, and free of intraluminal thrombus. Color and pulse Doppler demonstrate normal intravascular flow. There is normal augmentation with distal compression maneuver. Deep system reflux is only present in the common femoral vein, measuring 1.7 seconds. Greater saphenous vein (GSV): Normally 4 mm or less in diameter, with any reflux less than 0.5 seconds. Saphenofemoral junction (SFJ): 7 mm. No reflux. Proximal GSV: 4 mm. No reflux. Mid GSV: 2 mm. No reflux. Distal GSV: 2 mm. No reflux. Calf GSV: 2 mm. Borderline reflux measuring 0.5 seconds. Anterior accessory GSV (AAGSV): Tiny caliber without reflux. Small saphenous vein (SSV): Posterior calf, draining into popliteal vein. Posterior calf: 4 mm. No reflux. Vein of Giacomini (posterior thigh connection between GSV and SSV): Anatomic variant not seen. Load Manager veins: Calf: 3 mm, prolonged reflux measuring 3.1 seconds. LEFT LOWER EXTREMITY: The deep veins are normally compressible, and free of intraluminal thrombus. Color and pulse Doppler demonstrate normal intravascular flow. There is normal augmentation with distal compression maneuver. Deep system reflux is present only in the common femoral vein, measuring 1.1 seconds Greater saphenous vein (GSV): Normally 4 mm or less in diameter, with any reflux less than 0.5 seconds. Saphenofemoral junction (SFJ): 5 mm. No reflux. Proximal GSV: 5 mm. No reflux. Mid GSV: 3 mm. No reflux. Distal GSV: 3 mm. No reflux. Calf GSV: 4 mm. Borderline reflux measuring 0.5 seconds Anterior accessory GSV (AAGSV): Anatomic variant not present across anterior thigh. Small saphenous vein (SSV): Posterior calf, draining into popliteal vein. Posterior calf: 5 mm. No reflux. Vein of Giacomini (posterior thigh connection between GSV and SSV): Anatomic variant not seen. Load Manager veins: Calf: Multiple calf perforators are noted. The largest measures 4 mm, with 1.2 seconds of reflux. IMPRESSION: 1. No DVT bilaterally. 2. In the deep system, the only vessel that reflux is bilaterally is the common femoral vein. 3. Both greater saphenous veins are competent at the junction and throughout the thigh. Both of them are relatively small caliber in the calf, with borderline reflux measuring 0.5 seconds. 4. No short saphenous vein reflux. 5. 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 Dictated by: Pino Gaitan M.D. on 06/04/2024 at 17:30 Approved by: Pino Gaitan M.D. on 06/04/2024 at 17:35
--- NOTE | 2024-06-04 13:52 | DI.CT.S_ITS ---
PROCEDURE: CT LUNG LOW DOSE SCREENING INDICATIONS: tob use TECHNIQUE: Noncontrast 2.0-2.5 mm thick sections acquired from the pulmonary apices to the posterior costophrenic angles. 7 mm thick axial MIP, and 5 mm coronal and sagittal reformats were then acquired. For radiation dose reduction, the following was used: automated exposure control, adjustment of mA and/or kV according to patient size. COMPARISON: None. FINDINGS: Image quality: Diagnostic. Lower Neck: No enlarged lymph nodes. Thyroid: No thyroid nodules which require sonographic follow up, per consensus guidelines. Axillae: No enlarged lymph nodes. Chest Wall: Unremarkable. Bones: Visualized osseous structures appear intact without acute fracture or focal destructive lesion. No acute compression fractures of the imaged spine. Lungs and Pleura: No pneumothorax or pleural effusions. No acute consolidation. A 4 mm pleural-based nodule along the medial margin of the right upper lobe (161/series 3). Heart: Heart size is normal. No pericardial effusion. Thoracic Vessels: The aorta and pulmonary arteries demonstrate normal size. Mediastinum and Senia: No enlarged lymph nodes. Esophagus: No wall thickening. No hiatal hernia. Upper Abdomen: Visualized upper abdomen solid organs and bowel loops appear normal. IMPRESSION: No suspicious pulmonary nodules. LUNG-RADS 2; continued annual screening, if eligible. Clinically Significant Non-pulmonary Findings: None. Dictated by: Angel Juarez M.D. on 06/04/2024 at 17:42 Approved by: Angel Juarez M.D. on 06/04/2024 at 17:54
== END ==
LOC: US 12:03
PROVIDERS: PCP Family Medicine; Referring Provider Surgery; Visit Provider Surgery
DX: I87.2 Venous insufficiency (chronic) (peripheral) (principal); L97.322 Non-pressure chronic ulcer of left ankle with fat layer exposed; L97.312 Non-pressure chronic ulcer of right ankle with fat layer exposed; R91.1 Solitary pulmonary nodule; F17.210 Nicotine dependence, cigarettes, uncomplicated
CPT/HCPCS: 71271; 93970

== ENCOUNTER → 2024-06-11 10:01 | Outpatient (CLI) | payer MEDICARE, SELFPAY ==
--- NOTE | 2024-06-11 | OV.WND_ITS ---
PROGRESS NOTE DETAILS PATIENT NAME: ROHIT SIDDIQI PATIENT NUMBER: [id number] CLINICIAN: RAFI SALEH RN PATIENT DATE OF : 1965 PHYSICIAN / HELP DESK SPECIALIST: AYALA FABIANAHALLIE PATIENT SUBJECTIVE CHIEF COMPLAINT THIS INFORMATION WAS OBTAINED FROM THE PATIENT. LEG WOUNDS GENERAL NOTES VASCULITIC ULCERS TO BILATERAL LOWER EXTREMITIES. ALLERGIES ADHESIVE TAPE (REACTION: BLISTERS), NEOSPORIN ([id number]) (REACTION: INFLAMED), NEOMYCIN (REACTION: INFLAMMATION), POLYMYXIN B (REACTION: INFLAMMATION), DOXYCYCLINE (REACTION: RASH/PRURITUS) HPI THIS INFORMATION WAS OBTAINED FROM THE PATIENT. THE FOLLOWING HPI ELEMENTS WERE DOCUMENTED FOR THE PATIENT'S WOUND: LOCATION: BLE DURATION: 02/18/24 CONTEXT: LIVEDOID VASCULOPATHY THE PATIENT IS A 58-YEAR-OLD MALE WHO RETURNS TODAY FOR FOLLOW UP OF MULTIPLE ULCERS ON BOTH LOWER EXTREMITIES. THE PATIENT HAS BEEN RECEIVING DRESSING CHANGES WITH GENTAMICIN CREAM EVERY OTHER DAY AND RECENTLY COMPLETED ANOTHER COURSE OF BACTRIM DS FOR RECURRENT CELLULITIS. THE PATIENT REPORTS THAT THE ULCERS ARE STILL PAINFUL. THE PATIENT HAS BEEN USING ALEJANDRO WRAPS AND TUBIGRIP FOR COMPRESSION. THE PATIENT FEELS THAT HIS LOWER EXTREMITY SWELLING HAS BEEN GRADUALLY GETTING WORSE. 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 HE HAS PREVIOUSLY UNDERGONE AN EXTENSIVE WORKUP AT THE DERMATOLOGY CLINIC AT [facility] WHERE THE DIAGNOSIS WAS ESTABLISHED. THE PATIENT HAS UNDERGONE A WIDE VARIETY OF TREATMENTS INCLUDING COMBINATIONS OF ANTICOAGULANTS, ANTI-PLATELET MEDICATIONS, FIBRINOLYTIC THERAPIES, AND ANABOLIC STEROIDS WITHOUT SUCCESS AND HIS WOUNDS ARE NOW CONSIDERED PALLIATIVE. THE ONLY TREATMENT THAT PROVIDED ANY BENEFIT WAS AN OFF LABEL USE OF HYPERBARIC OXYGEN SEVERAL YEARS AGO. PATIENT HAS DECLINED ANY FURTHER WORKUP OR ANY FURTHER ATTEMPTS AT CURATIVE TREATMENT. ULCERS DO SEEM TO FLUCTUATE IN SEVERITY AND THE PATIENT HAS NEVER BEEN ABLE TO IDENTIFY ANY FACTORS THAT SEEM TO MAKE THEM WORSE. LINEZOLID, LEVAQUIN, AND BACTRIM HAVE HELPED IN THE PAST. PATIENT REMAINS A CURRENT EVERY DAY SMOKER. HE HAS STOPPED SMOKING IN THE PAST AND THIS HAD NO EFFECT ON ULCER HEALING. HE DENIES HAVING ANY FEVER OR CHILLS. NO OTHER CHANGES IN OVERALL HEALTH. ON EXAM TODAY THERE ARE INCREASED VASCULITIC CHANGES OF BOTH LOWER EXTREMITIES AND BOTH FEET WITH MILD LOWER EXTREMITY SWELLING. MULTIPLE SCATTERED ULCERS WITH SLOUGH WERE NOTED ON BOTH LOWER EXTREMITIES. PREVIOUS TESTIN06/04/24: VENOUS ULTRASOUND: IN THE DEEP SYSTEM, THE ONLY VESSEL THAT REFLUX IS BILATERALLY IS THE COMMON FEMORAL VEIN. BOTH GREATER SAPHENOUS VEINS ARE COMPETENT AT THE JUNCTION AND THROUGHOUT THE THIGH. BOTH OF THEM ARE RELATIVELY SMALL CALIBER IN THE CALF, WITH BORDERLINE REFLUX MEASURING 0.5 SECONDS. NO SHORT DEVANG ROHIT Sarmiento [id number] 1965 SAPHENOUS VEIN REFLUX. THERE IS PYROMETALLURGICAL ENGINEER VEIN REFLUX IN THE LEFT CALF. 03/29/24: CULTURE GREW MRSA 10/21/23: CULTURE MRSA 09/02/23: CULTURE MRSA, RX BACTRIM 07/22/23: CULTURE NO GROWTH 06/06/23: CULTURES GREW STAPHYLOCOCCUS AUREUS AND CITROBACTER DIVERSUS 03/31/23: WBC 5.7, HEMOGLOBIN 14.6, HCT 42.8 ELECTROLYTES UNREMARKABLE, LFTS NORMAL 09/19/22: CULTURES GREW MORGANELLI MORGANII AND ENTEROCOCCUS FAECALIS. 09/19/22: WBC 9.3, HEMOGLOBIN 13.8, HCT 39.8, ELECTROLYTES NORMAL, GFR GREATER THAN 60 MEDICAL HISTORY THIS INFORMATION WAS OBTAINED FROM THE PATIENT. 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 YES? COMPLETE ALL QUESTIONS.: NO SURGICAL HISTORY THIS INFORMATION WAS OBTAINED FROM THE PATIENT. PATIENT HAS A SURGICAL HISTORY OF: INGUNIAL HERNIA- (2004) WISDOM TEETH EXTRACTION- (1999) VASECTOMY- OBJECTIVE VITALS HEIGHT/LENGTH: 74 IN (187.96 CM), WEIGHT: 203.3 LBS (92.41 KGS), BMI: 26.1, TEMPERATURE: 99.3 ?F (37.39 ?C), PULSE: 84 BPM, RESPIRATORY RATE: 18 BREATHS/MIN, BLOOD PRESSURE: 131/73 MMHG. PHYSICAL EXAM CONSTITUTIONAL: VITAL SIGNS REVIEWED AND NOTED. WELL DEVELOPED, WELL NOURISHED, AND IN NO ACUTE DISTRESS. ALERT AND ORIENTED X3. RESPIRATORY: EVEN RESPIRATIONS WITHOUT USE OF ACCESSORY MUSCLES. NO INTERCOASTAL RETRACTIONS NOTED. EVEN AND NON LABORED RESPIRATION. INTEGUMENTARY (HAIR, SKIN): VASCULITIC CHANGES BOTH LOWER EXTREMITIES AND FEET. MILD LOWER EXTREMITY SWELLING. SEE WOUND ASSESSMENT. SKIN WARM AND DRY. NO RASHES. NEUROLOGICAL: SENSATION: SYMMETRIC FUNCTION BY INFORMAL OBSERVATION. PSYCHIATRIC: ORIENTATION TO TIME, PLACE AND PERSON: NORMAL AFFECT WITH NORMAL THOUGHT PATTERN. ADDITIONAL INFORMATION ROHIT SIDDIQI [id number] 1965 THE PATIENT'S POTENTIAL TO HEAL IS: POOR. WOUND ASSESSMENT(S) WOUND #83 RIGHT ANKLE RIGHT FOOT IS A CHRONIC FULL THICKNESS VASCULITIC ULCER ACQUIRED ON 02/18/2024 AND HAS RECEIVED A STATUS OF NOT HEALED. INITIAL WOUND ENCOUNTER MEASUREMENTS ARE 0.4CM LENGTH X 0.2CM WIDTH X 0.2 CM DEPTH, WITH AN AREA OF 0.08 SQ CM AND A VOLUME OF 0.016 CUBIC CM.INITIAL WOUND ENCOUNTER PREVIOUS MEASUREMENTS FROM 05/21/2024 ARE 0.4CM LENGTH X 0.3CM WIDTH X 0.1CM DEPTH, WITH AN AREA OF 0.12 SQ CM AND A VOLUME OF 0.012 CUBIC CM. ADIPOSE IS EXPOSED. NO TUNNELING HAS BEEN NOTED. NO SINUS TRACT HAS BEEN NOTED. NO UNDERMINING HAS BEEN NOTED. THERE IS A MODERATE AMOUNT OF SEROUS DRAINAGE NOTED WHICH HAS NO ODOR. THE PATIENT REPORTS A WOUND PAIN OF LEVEL 2/10. THE WOUND MARGIN IS ATTACHED WOUND BED HAS NO, GRANULATION, YES SLOUGH, NO ESCHAR, NO EPITHELIALIZATION. THE PERIWOUND SKIN EXHIBITED EDEMA AND ERYTHEMA. THE PERIWOUND SKIN DID NOT EXHIBIT BRAWNY INDURATION, EXCORIATION, INDURATION, CALLUS, CREPITUS, FLUCTUANCE, RASH, MACERATION, ATROPHIE JAVIER, CYANOSIS, ECCHYMOSIS, HEMOSIDEROSIS, PALLOR AND RUBOR. THE PERIWOUND SKIN WAS NOT FRIABLE, DRY/SCALY AND MOIST. THE TEMPERATURE OF THE PERIWOUND SKIN IS WNL. PERIWOUND SKIN DOES NOT EXHIBIT SIGNS OR SYMPTOMS OF INFECTION. LOCAL PULSE IS PALPABLE. GENERAL NOTES SCATTERED SCABS AND OPEN AREAS TO BILATERAL LOWER LEGS, BOTH MEDIAL AND LATERAL. ADDITIONAL INFORMATION OTHER DEVITALIZED TISSUE PRESENT: BIOFILM WOUND #84 LEFT LEG - LOWER IS A CHRONIC FULL THICKNESS VASCULITIC ULCER ACQUIRED ON 01/22/2024 AND HAS RECEIVED A STATUS OF NOT HEALED. INITIAL WOUND ENCOUNTER MEASUREMENTS ARE 0.2CM LENGTH X 0.2CM WIDTH X 0.1 CM DEPTH, WITH AN AREA OF 0.04 SQ CM AND A VOLUME OF 0.004 CUBIC CM.INITIAL WOUND ENCOUNTER PREVIOUS MEASUREMENTS FROM 05/21/2024 ARE 0.2CM LENGTH X 0.2CM WIDTH X 0.1CM DEPTH, WITH AN AREA OF 0.04 SQ CM AND A VOLUME OF 0.004 CUBIC CM. ADIPOSE IS EXPOSED. NO TUNNELING HAS BEEN NOTED. NO SINUS TRACT HAS BEEN NOTED. NO UNDERMINING HAS BEEN NOTED. THERE IS A MODERATE AMOUNT OF SEROUS DRAINAGE NOTED WHICH HAS NO ODOR. THE PATIENT REPORTS A WOUND PAIN OF LEVEL 2/10. THE WOUND MARGIN IS UNATTACHED WOUND BED HAS NO, GRANULATION, YES SLOUGH, NO ESCHAR, NO EPITHELIALIZATION. THE PERIWOUND SKIN EXHIBITED EDEMA AND ERYTHEMA. THE PERIWOUND SKIN DID NOT EXHIBIT BRAWNY INDURATION, EXCORIATION, INDURATION, CALLUS, CREPITUS, FLUCTUANCE, RASH, MACERATION, ATROPHIE JAVIER, CYANOSIS, ECCHYMOSIS, HEMOSIDEROSIS, PALLOR AND RUBOR. THE PERIWOUND SKIN WAS NOT FRIABLE, DRY/SCALY AND MOIST. THE TEMPERATURE OF THE PERIWOUND SKIN IS WNL. PERIWOUND SKIN DOES NOT EXHIBIT SIGNS OR SYMPTOMS OF INFECTION. LOCAL PULSE IS PALPABLE. GENERAL NOTES SCATTERED SCABS AND OPEN AREAS TO BILATERAL LOWER LEGS, BOTH MEDIAL AND LATERAL. ADDITIONAL INFORMATION OTHER DEVITALIZED TISSUE PRESENT: BIOFILM WOUND #85 LEFT, LATERAL LEG - LOWER LEFT FOOT IS A CHRONIC FULL THICKNESS VASCULITIC ULCER ACQUIRED ON 02/18/2024 AND HAS RECEIVED AN OUTCOME OF CONVERTED/BRIDGED. INITIAL WOUND ENCOUNTER MEASUREMENTS ARE 1.1CM LENGTH X 0.8CM WIDTH X 0.2 CM DEPTH, WITH AN AREA OF 0.88 SQ CM AND A VOLUME OF 0.176 CUBIC CM.INITIAL WOUND ENCOUNTER PREVIOUS MEASUREMENTS FROM 05/21/2024 ARE 0.1CM LENGTH X 0.1CM WIDTH X 0.1CM DEPTH, WITH AN AREA OF 0.01 SQ CM AND A VOLUME OF 0.001 CUBIC CM. ADIPOSE IS EXPOSED. NO TUNNELING HAS BEEN NOTED. NO SINUS TRACT HAS BEEN NOTED. NO UNDERMINING HAS BEEN NOTED. THERE IS A MODERATE AMOUNT OF SEROUS DRAINAGE NOTED WHICH HAS NO ODOR. THE PATIENT REPORTS A WOUND PAIN OF LEVEL 2/10. THE WOUND MARGIN IS UNATTACHED WOUND BED HAS YES, BRIGHT RED, FIRM, GRANULATION, YES SLOUGH, NO ESCHAR, NO EPITHELIALIZATION. THE PERIWOUND SKIN EXHIBITED EDEMA AND ERYTHEMA. THE PERIWOUND SKIN DID NOT EXHIBIT BRAWNY INDURATION, EXCORIATION, INDURATION, CALLUS, CREPITUS, FLUCTUANCE, RASH, MACERATION, ATROPHIE JAVIER, CYANOSIS, ECCHYMOSIS, HEMOSIDEROSIS, PALLOR AND RUBOR. THE PERIWOUND SKIN WAS NOT FRIABLE, DRY/SCALY AND MOIST. THE TEMPERATURE OF THE PERIWOUND SKIN IS WARM. PERIWOUND SKIN DOES NOT EXHIBIT SIGNS OR SYMPTOMS OF INFECTION. LOCAL PULSE IS PALPABLE. GENERAL NOTES SCATTERED SCABS AND OPEN AREAS TO BILATERAL LOWER LEGS, BOTH MEDIAL AND LATERAL. CONVERTED WOUND TO BE ROHIT SIDDIQI [id number] 1965 INCLUDED INTO WOUND #84 LEFT LOWER LEG. ADDITIONAL INFORMATION OTHER DEVITALIZED TISSUE PRESENT: BIOFILM ASSESSMENT ACTIVE PROBLEMS ICD-10 (ENCOUNTER DIAGNOSIS) L95.0 - LIVEDOID VASCULITIS (ENCOUNTER DIAGNOSIS) L97.322 - NON-PRESSURE CHRONIC ULCER OF LEFT ANKLE WITH FAT LAYER EXPOSED (ENCOUNTER DIAGNOSIS) L97.312 - NON-PRESSURE CHRONIC ULCER OF RIGHT ANKLE WITH FAT LAYER EXPOSED (ENCOUNTER DIAGNOSIS) L97.812 - NON-PRESSURE CHRONIC ULCER OF OTHER PART OF RIGHT LOWER LEG WITH FAT LAYER EXPOSED (ENCOUNTER DIAGNOSIS) L97.822 - NON-PRESSURE CHRONIC ULCER OF OTHER PART OF LEFT LOWER LEG WITH FAT LAYER EXPOSED GENERAL NOTES MULTIPLE BILATERAL LOWER EXTREMITY ULCERS SECONDARY TO LIVEDOID VASCULOPATHY, MILD LOWER EXTREMITY SWELLING, INCREASED VASCULITIC SKIN CHANGES THE FOLLOWING FACTORS HAVE BEEN IDENTIFIED THAT MAY AFFECT WOUND HEALING: DEVITALIZED TISSUE BIOBURDEN INFECTION EDEMA GOALS: REMOVE DEVITALIZED TISSUE REMOVE AND PREVENT BIOFILM TREAT INFECTION REDUCE PAIN REDUCE SWELLING PLAN: CONTINUE DRESSING CHANGES WITH GENTAMICIN CREAM WITH TUBIGRIP FOR COMPRESSION, CONSULT RHEUMATOLOGY FOR EVALUATION OF VASCULITIC CHANGES, FOLLOW UP IN 1 MONTH FOR A RECHECK. 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 TOPICAL TREATMENTS APPLY ANTIBIOTIC/ANTIMICROBIAL OINTMENT/CREAM TO THE WOUND BED. - GENTAMICIN CREAM TO ALL DAILY. DRESSING ORDERS APPLY DRESSING(S) AND SECURE WITH: - MAY USE UNNA GAUZE FOR COMFORT, TELFA, ROLL GAUZE. DRESSING CHANGE FREQUENCY CHANGE DRESSING DAILY. WOUND #84 LEFT, MEDIAL LEG - LOWER MEDIAL ANKLE CLEANSER ROHIT SIDDIQI [id number] 1965 CLEANSE WOUND WITH NORMAL SALINE PROCEDURE / ANESTHETIC 5% TOPICAL LIDOCAINE TO WOUND BED PRIOR TO PROCEDURE, IN CLINIC ONLY. TOPICAL TREATMENTS APPLY ANTIBIOTIC/ANTIMICROBIAL OINTMENT/CREAM TO THE WOUND BED. - GENTAMICIN CREAM TO ALL DAILY. DRESSING ORDERS APPLY DRESSING(S) AND SECURE WITH: - MAY USE UNNA GAUZE FOR COMFORT, TELFA, ROLL GAUZE. DRESSING CHANGE FREQUENCY CHANGE DRESSING DAILY. ADDITIONAL ORDERS: COMPRESSION/EDEMA CONTROL ELEVATE LEG(S) ABOVE THE LEVEL OF THE HEART MUCH POSSIBLE. AVOID STANDING IN ONE POSITION FOR MORE THAN 10 MINUTES. AVOID SITTING WITH LEGS DOWN. DO NOT CROSS LEGS WHEN SITTING. APPLY KNEE-HIGH GRADIENT COMPRESSION STOCKINGS AT 20-30MMHG DIETARY TAKE VITAMIN C 1000MG BY MOUTH DAILY. TAKE ZINC 25MG BY MOUTH DAILY. INCREASE THE PROTEIN IN YOUR DIET. FOLLOW-UP APPOINTMENTS RETURN APPOINTMENT 3 WEEKS OTHER ORDERS: - REFER TO RHEUMATOLOGY FOR EVALUATION AND TREATMENT OF LIVEDOID VASCULOPATHY/VASCULITIC ULCERS. SCRIBING ATTESTATION I ATTEST, THE NURSE, THAT I SCRIBED THESE ORDERS FOR THE WOUND CARE PROVIDER. PROVIDER REVIEW AND ATTESTATION: REVIEWED AND EVALUATED LABS. REVIEWED HOSPITAL RECORDS. DISCUSSED THE PLAN OF CARE @ BEDSIDE WITH - THE PATIENT SMOKING CESSATION WAS ENCOURAGED. PLACE PATIENT ON PALLIATIVE CARE DUE TO: - CHRONIC DISEASE I AGREE AND ATTEST TO THE ABOVE INFORMATION PROVIDED FROM OTHER LICENSED PROFESSIONALS. PLAN OF CARE: 01. ENSURE/ESTABLISH OPTIMAL BLOOD FLOW : - COMPLETE LOWER EXTREMITY ASSESSMENT STATUS: CONTINUED DATE: 05/21/2024 02. ASSESS FOR/TREAT INFECTION : - EVALUATE FOR SIGNS AND SYMPTOMS OF INFECTION AND DOCUMENT FINDINGS. STATUS: CONTINUED DATE: 05/21/2024 - OBTAIN CULTURE AND SENSITIVITY (CANDS) OR TISSUE CULTURE WHEN INFECTION IS SUSPECTED. (NOTE:) CONSIDER REPEATING WHEN WOUND HEALING <40% AFTER 30 DAYS OF WOUND CARE. STATUS: CONTINUED DATE: 05/21/2024 - ORDER APPROPRIATE ANTIBIOTICS BASED ON PATIENT PRESENTATION AND CULTURE AND SENSITIVITY RESULTS. INSTRUCT PATIENT ON THE IMPORTANCE OF TAKING MEDICATION PRESCRIBED. STATUS: CONTINUED DATE: 05/21/2024 03. DEBRIDE WEEKLY OR MORE OFTEN PRN : - EVALUATE PATIENT IN CENTER WEEKLY TO ASSESS WOUND BED AND MARGINS FOR NEED FOR DEBRIDEMENT. STATUS: CONTINUED DATE: 05/21/2024 - DEBRIDEMENT BY ANY METHOD TO REMOVE DEVITALIZED/NECROTIC TISSUE TO PROMOTE HEALING AND PREVENT FURTHER COMPLICATIONS. GOAL IS TO STIMULATE AND/OR MAINTAIN ACUTE PHASE OF WOUND HEALING BY REDUCING BACTERIAL BURDEN AND DEVITALIZED/NON-VIABLE TISSUE. STATUS: CONTINUED DATE: 05/21/2024 04. OPTIMIZE GLUCOSE CONTROL AND NUTRITION : - ORDER/REVIEW PERTINENT LABS TO EVALUATE RENAL FUNCTION, GLUCOSE CONTROL, AND NUTRITIONAL STATUS. STATUS: CONTINUED DATE: 05/21/2024 ROHIT SIDDIQI [id number] 1965 05. OFFLOADING PLAN : - REVIEWED, NOT APPLICABLE 06. OPTIMIZE HOST FACTORS: - ASSESS AND REVIEW PATIENT HISTORY FOR WOUND ETIOLOGY, CO-MORBID CONDITIONS, MEDICATION REGIME, AND SMOKING HISTORY. STATUS: CONTINUED DATE: 05/21/2024 - ASSESS LIFESTYLE FACTORS SUCH SMOKING, ALCOHOL/DRUG ABUSE, EATING HABITS/MALNUTRITION AND ACTIVITY LEVEL. STATUS: CONTINUED DATE: 05/21/2024 - EDUCATE AND ENCOURAGE SMOKING CESSATION. STATUS: CONTINUED DATE: 05/21/2024 - CONSIDER THE PATIENT FOR PALLIATIVE CARE APPROPRIATE. STATUS: COMPLETED DATE: 05/21/2024 07. DRESSING SELECTION : - EVALUATE FOR DRESSING-RELATED FACTORS, SUCH AVAILABILITY, WEAR TIME, ADAPTABILITY AND USE TO BETTER OPTIMIZE WOUND HEALING AND PATIENT COMPLIANCE. STATUS: CONTINUED DATE: 05/21/2024 - EDUCATE THE PATIENT/FAMILY/CAREGIVER TO MONITOR DRESSING DAILY. CHANGE DRESSING ONLY NEEDED BUT NEVER LESS FREQUENTLY THAN WEEKLY SO THAT WOUND BED CAN BE REASSESSED. STATUS: CONTINUED DATE: 05/21/2024 08. ADVANCED MODALITIES : - SET TREATMENT GOALS ACCORDING TO PATIENT AND/OR CAREGIVER?S ABILITY/ COMPLIANCE. STATUS: CONTINUED DATE: 05/21/2024 09. FALL PREVENTION : - REVIEWED, NOT APPLICABLE 10. PAIN MANAGEMENT : - REVIEWED, NOT APPLICABLE 11. MEASURABLE GOALS FOR WOUND HEALING AND/OR HYPERBARIC OXYGEN THERAPY : - DECREASE INFLAMMATION STATUS: CONTINUED DATE: 05/21/2024 - DECREASE PAIN STATUS: CONTINUED DATE: 05/21/2024 - IMPLEMENT PROTOCOLS TO PROMOTE HEALING AND IMPEDE FURTHER INJURY STATUS: CONTINUED DATE: 05/21/2024 - REDUCE EDEMA STATUS: CONTINUED DATE: 05/21/2024 12. DURATION/FREQUENCY OF WOUND CARE VISITS : - EVERY 30 DAYS STATUS: CONTINUED DATE: 05/21/2024 ELECTRONIC SIGNATURE(S) SIGNED BY: DATE: CRYSTAL CAI MD 06/11/2024 15:58:23 (PT) ENTERED BY: CRYSTAL CAI MD ON 06/11/2024 12:39:29 (PT) ROHIT SIDDIQI [id number] 1965
== END ==
LOC: WC 10:01
PROVIDERS: PCP Family Medicine; Referring Provider Family Medicine; Visit Provider Surgery
DX: L95.0 Livedoid vasculitis (principal); L97.312 Non-pressure chronic ulcer of right ankle with fat layer exposed; L97.822 Non-pressure chronic ulcer of other part of left lower leg with fat layer exposed; L53.8 Other specified erythematous conditions; R60.0 Localized edema
CPT/HCPCS: 99213; 99214

== ENCOUNTER → 2024-07-24 13:49 | Outpatient (CLI) | payer MEDICARE, SELFPAY | PROVIDERS: PCP Family Medicine; Referring Provider Family Medicine; Visit Provider Surgery | DX: L97.312 Non-pressure chronic ulcer of right ankle with fat layer exposed (principal); L97.322 Non-pressure chronic ulcer of left ankle with fat layer exposed; L95.9 Vasculitis limited to the skin, unspecified; L53.9 Erythematous condition, unspecified; R60.0 Localized edema; F17.210 Nicotine dependence, cigarettes, uncomplicated; M25.571 Pain in right ankle and joints of right foot; M25.572 Pain in left ankle and joints of left foot; Z79.2 Long term (current) use of antibiotics | CPT/HCPCS: 97597; 99213 ==

== ENCOUNTER → 2024-08-07 08:50 | Outpatient (CLI) | payer MEDICARE, SELFPAY | LOC: WC 08:51 | PROVIDERS: PCP Family Medicine; Referring Provider Family Medicine; Visit Provider Surgery | DX: I87.2 Venous insufficiency (chronic) (peripheral) (principal); L97.312 Non-pressure chronic ulcer of right ankle with fat layer exposed; L97.322 Non-pressure chronic ulcer of left ankle with fat layer exposed; Z86.718 Personal history of other venous thrombosis and embolism; L53.8 Other specified erythematous conditions; L95.0 Livedoid vasculitis | CPT/HCPCS: 11042; 11045; 87070; 87075; 87205; 99213 ==

== ENCOUNTER → 2024-08-21 09:14 | Outpatient (CLI) | payer MEDICARE, SELFPAY | LOC: WC 09:15 | PROVIDERS: PCP Family Medicine; Referring Provider Family Medicine; Visit Provider Surgery | DX: L95.0 Livedoid vasculitis (principal); L97.312 Non-pressure chronic ulcer of right ankle with fat layer exposed; L97.322 Non-pressure chronic ulcer of left ankle with fat layer exposed; L08.9 Local infection of the skin and subcutaneous tissue, unspecified | CPT/HCPCS: 11042; 99213 ==

== ENCOUNTER → 2024-09-17 08:40 | Outpatient (CLI) | payer MEDICARE, SELFPAY | LOC: WC 08:44 | PROVIDERS: PCP Family Medicine; Referring Provider Family Medicine; Visit Provider Surgery | DX: I87.2 Venous insufficiency (chronic) (peripheral) (principal); L97.312 Non-pressure chronic ulcer of right ankle with fat layer exposed; L97.322 Non-pressure chronic ulcer of left ankle with fat layer exposed; L95.0 Livedoid vasculitis; L08.9 Local infection of the skin and subcutaneous tissue, unspecified | CPT/HCPCS: 11042 ==

== ENCOUNTER → 2024-10-08 12:07 | Outpatient (CLI) | payer MEDICARE, SELFPAY | LOC: WC 12:10 | PROVIDERS: PCP Family Medicine; Referring Provider Family Medicine; Visit Provider Surgery | DX: L95.0 Livedoid vasculitis (principal); L97.312 Non-pressure chronic ulcer of right ankle with fat layer exposed; L97.322 Non-pressure chronic ulcer of left ankle with fat layer exposed; L53.9 Erythematous condition, unspecified | CPT/HCPCS: 99212; 99213 ==

== ENCOUNTER → 2024-11-20 11:52 | Outpatient (CLI) | payer MEDICARE, SELFPAY | LOC: WC 11:53 | PROVIDERS: PCP Family Medicine; Referring Provider Family Medicine; Visit Provider Surgery | DX: L95.0 Livedoid vasculitis (principal); L97.322 Non-pressure chronic ulcer of left ankle with fat layer exposed; L97.312 Non-pressure chronic ulcer of right ankle with fat layer exposed; L97.822 Non-pressure chronic ulcer of other part of left lower leg with fat layer exposed; L97.812 Non-pressure chronic ulcer of other part of right lower leg with fat layer exposed; L81.8 Other specified disorders of pigmentation; Z72.0 Tobacco use; Z86.718 Personal history of other venous thrombosis and embolism | CPT/HCPCS: 97602; 99213 ==

== ENCOUNTER → 2024-12-11 08:59 | Outpatient (CLI) | payer MEDICARE, SELFPAY | LOC: WC 08:59 | PROVIDERS: PCP Family Medicine; Referring Provider Family Medicine; Visit Provider Surgery | DX: L95.8 Other vasculitis limited to the skin (principal); L97.312 Non-pressure chronic ulcer of right ankle with fat layer exposed; L97.322 Non-pressure chronic ulcer of left ankle with fat layer exposed; L97.812 Non-pressure chronic ulcer of other part of right lower leg with fat layer exposed; L97.822 Non-pressure chronic ulcer of other part of left lower leg with fat layer exposed; L97.422 Non-pressure chronic ulcer of left heel and midfoot with fat layer exposed; L98.8 Other specified disorders of the skin and subcutaneous tissue; R60.0 Localized edema | CPT/HCPCS: 11042; 11045 ==

== ENCOUNTER → 2025-01-07 09:01 | Outpatient (CLI) | payer MEDICARE, SELFPAY | LOC: WC 09:02 | PROVIDERS: PCP Family Medicine; Referring Provider Family Medicine; Visit Provider Surgery | DX: L95.8 Other vasculitis limited to the skin (principal); L97.312 Non-pressure chronic ulcer of right ankle with fat layer exposed; L97.322 Non-pressure chronic ulcer of left ankle with fat layer exposed; L97.822 Non-pressure chronic ulcer of other part of left lower leg with fat layer exposed; L97.812 Non-pressure chronic ulcer of other part of right lower leg with fat layer exposed; L97.422 Non-pressure chronic ulcer of left heel and midfoot with fat layer exposed; L08.9 Local infection of the skin and subcutaneous tissue, unspecified; L53.8 Other specified erythematous conditions; L98.8 Other specified disorders of the skin and subcutaneous tissue; R60.0 Localized edema | CPT/HCPCS: 11042; 99213 ==

== ENCOUNTER → 2025-01-28 09:13 | Outpatient (CLI) | payer MEDICARE, SELFPAY | LOC: WC 09:14 | PROVIDERS: PCP Family Medicine; Referring Provider Family Medicine; Visit Provider Surgery | DX: L95.8 Other vasculitis limited to the skin (principal); L97.312 Non-pressure chronic ulcer of right ankle with fat layer exposed; L97.322 Non-pressure chronic ulcer of left ankle with fat layer exposed; L97.812 Non-pressure chronic ulcer of other part of right lower leg with fat layer exposed; L97.822 Non-pressure chronic ulcer of other part of left lower leg with fat layer exposed; L97.422 Non-pressure chronic ulcer of left heel and midfoot with fat layer exposed; L08.9 Local infection of the skin and subcutaneous tissue, unspecified; L53.8 Other specified erythematous conditions; L98.8 Other specified disorders of the skin and subcutaneous tissue | CPT/HCPCS: 97602; 99213 ==

== ENCOUNTER → 2025-02-25 08:51 | Outpatient (CLI) | payer MEDICARE, SELFPAY | LOC: WC 08:51 | PROVIDERS: PCP Family Medicine; Referring Provider Family Medicine; Visit Provider Surgery | DX: L95.0 Livedoid vasculitis (principal); L97.322 Non-pressure chronic ulcer of left ankle with fat layer exposed; L97.312 Non-pressure chronic ulcer of right ankle with fat layer exposed; L97.822 Non-pressure chronic ulcer of other part of left lower leg with fat layer exposed; L97.812 Non-pressure chronic ulcer of other part of right lower leg with fat layer exposed; L97.422 Non-pressure chronic ulcer of left heel and midfoot with fat layer exposed; L81.8 Other specified disorders of pigmentation; R60.0 Localized edema; Z72.0 Tobacco use | CPT/HCPCS: 11042; 97602; 99213 ==